=== PATIENT | male | born 1955 | race Two or more races ===

== ENCOUNTER 2019-05-26 11:53 | Inpatient (IN) | payer MEDICAID, OTHER | END 2019-06-06 19:19 | disposition home or self-care (01) | LOC: TELE-WESTW 06-04 17:19 → ER 11:53 → ICU WEST 05-27 20:05 → OVERFLOW 11:54 | PROC: 30233N1 Transfusion of Nonautologous Red Blood Cells into Peripheral Vein, Percutaneous Approach (ICD-10-PCS; principal; ~2019-05-26) | PROC: 30233K1 Transfusion of Nonautologous Frozen Plasma into Peripheral Vein, Percutaneous Approach (ICD-10-PCS; ~2019-05-26) | PROC: 02HV33Z Insertion of Infusion Device into Superior Vena Cava, Percutaneous Approach (ICD-10-PCS; ~2019-05-26) | PROC: 027135Z Dilation of Coronary Artery, Two Arteries with Two Drug-eluting Intraluminal Devices, Percutaneous Approach (ICD-10-PCS; ~2019-05-26) | PROC: B2111ZZ Fluoroscopy of Multiple Coronary Arteries using Low Osmolar Contrast (ICD-10-PCS; ~2019-05-26) | PROC: 4A033BC Measurement of Arterial Pressure, Coronary, Percutaneous Approach (ICD-10-PCS; ~2019-05-26) | DX: A41.9 Sepsis, unspecified organism (principal); I21.4 Non-ST elevation (NSTEMI) myocardial infarction; R65.21 Severe sepsis with septic shock; I50.23 Acute on chronic systolic (congestive) heart failure; D61.818 Other pancytopenia; N18.3 Chronic kidney disease, stage 3 (moderate); K92.2 Gastrointestinal hemorrhage, unspecified; E66.01 Morbid (severe) obesity due to excess calories; L89.90 Pressure ulcer of unspecified site, unspecified stage; I50.33 Acute on chronic diastolic (congestive) heart failure; D64.9 Anemia, unspecified; G40.909 Epilepsy, unspecified, not intractable, without status epilepticus; E66.9 Obesity, unspecified; E78.00 Pure hypercholesterolemia, unspecified; G47.30 Sleep apnea, unspecified; I13.0 Hypertensive heart and chronic kidney disease with heart failure and stage 1 through stage 4 chronic kidney disease, or unspecified chronic kidney disease; I25.10 Atherosclerotic heart disease of native coronary artery without angina pectoris; R09.02 Hypoxemia ==

== ENCOUNTER 2019-07-12 11:36 | Inpatient (IN) | payer MEDICAID | END 2019-07-17 15:27 | disposition home health service (06) | LOC: TELE-CENTR 07-14 12:44 → ER 11:36 → TELE 11:37 | PROC: 30233N1 Transfusion of Nonautologous Red Blood Cells into Peripheral Vein, Percutaneous Approach (ICD-10-PCS; principal; ~2019-07-12) | DX: I21.4 Non-ST elevation (NSTEMI) myocardial infarction (principal); N17.0 Acute kidney failure with tubular necrosis; I50.23 Acute on chronic systolic (congestive) heart failure; D61.818 Other pancytopenia; D64.9 Anemia, unspecified; I11.0 Hypertensive heart disease with heart failure; F03.90 Unspecified dementia, unspecified severity, without behavioral disturbance, psychotic disturbance, mood disturbance, and anxiety; E44.1 Mild protein-calorie malnutrition; G40.909 Epilepsy, unspecified, not intractable, without status epilepticus; L89.90 Pressure ulcer of unspecified site, unspecified stage; I25.10 Atherosclerotic heart disease of native coronary artery without angina pectoris ==

== ENCOUNTER 2019-10-07 12:12 | Emergency (ER) | payer MEDICAID ==
[~2019-10-07] VITALS: Ht 167.6 cm; Wt 100.7 kg
[~2019-10-07 12:12] MED LIST: ALLO100T PO; ATOR20TA50 PO; CLOP75TA28 PO; CYAN500T3 PO; FINA5TAB4 PO; FOLI1TAB6 PO; GABA300C10 PO; LEVE500T22 PO; PANT40T PO; TOPI100T68 PO
[2019-10-07 13:41] LABS: Eosinophils # (auto) 0.1 uL; Monocytes # (auto) 0.7 uL; White Blood Cell 7.6 10^3/uL (4.4-10.8)
[2019-10-07 13:44] LABS: Basophils # (auto) 0.1 uL; Basophils % (auto) 0.8 % (0.0-2.0); Eosinophils % (auto) 1.9 % (0.0-7.0); Hematocrit 43.2 % (41.0-53.0); Hemoglobin 14.5 g/dL (13.5-17.5); Lymphocytes # (auto) 1.9 uL; Lymphocytes % (auto) 25.1 % (10.0-50.0); Mean Corpuscular Hemoglobin 34.3 pg (28.0-32.0); Mean Corpuscular Hgb Conc. 33.6 g/dL (32.0-36.0); Mean Corpuscular Volume 102.3 fL (80.0-100.0); Monocytes % (auto) 9.5 % (0.0-12.0); Neutrophils # (auto) 4.7 uL; Neutrophils % (auto) 62.7 % (37.0-80.0); Platelet Count (auto) 147 10^3/uL (140-450); Red Blood Cells 4.23 10^6/uL (4.5-5.90); Red Cell Distribution Width 14.4 % (11.8-14.3)
[2019-10-07 14:06] LABS: Albumin 3.5 g/dL (3.4-5.0); Calcium 9.2 mg/dL (8.5-10.1); Potassium 4.5 mmol/L (3.5-5.1)
[2019-10-07 14:09] LABS: BUN/Creatinine Ratio 17.6; Bilirubin, Total 0.2 mg/dL (0.2-1.0)
[2019-10-08 01:39] LABS: INR 1.03 (0.9-1.15); Partial Thromboplastin Time 26.9 sec (23.64-32.05)
[2019-10-08 01:40] LABS: Magnesium 2.3 mg/dL (1.6-2.6)
[2019-10-08 02:24] LABS: Urine Bacteria MANY /hpf (None Seen); Urine Blood Negative /uL (Negative); Urine Mucus FEW (None Seen); Urine Specific Gravity 1.018 (1.001-1.035); Urine WBC 37 /hpf (0 - 3)
[2019-10-08 03:09] VITALS: BP 126/59
== END 2019-10-08 03:35 | disposition home or self-care (01) ==
LOC: ER 12:12
DX: M47.896 Other spondylosis, lumbar region (principal); N39.0 Urinary tract infection, site not specified; I50.9 Heart failure, unspecified; K21.9 Gastro-esophageal reflux disease without esophagitis; E78.00 Pure hypercholesterolemia, unspecified; I25.2 Old myocardial infarction; Z88.0 Allergy status to penicillin; Z88.5 Allergy status to narcotic agent; Z79.01 Long term (current) use of anticoagulants; Z79.899 Other long term (current) drug therapy
CPT/HCPCS: 36415; 71045; 72131; 80053; 81001; 83735; 83880; 84443; 84484; 85025; 85610; 85730

== ENCOUNTER 2020-03-21 10:39 | Inpatient (IN) | payer MEDICAID ==
[~2020-03-21] VITALS: Ht 167.6 cm; Wt 78.1 kg
[2020-03-21] MEDS ORDERED: ASPirin 81 mg TAB PO ONE (10:45)
[2020-03-21 11:00] LABS: Basophils # (auto) 0.1 10 ^3/uL (0-0.2); Hemoglobin 13.1 g/dL (13.5-17.5); Lymphocytes # (auto) 1.8 10 ^3/uL (0.4-5.4); Monocytes # (auto) 0.7 10 ^3/uL (0-1.3); Neutrophils # (auto) 6.9 10 ^3/uL (1.6-8.6); Red Cell Distribution Width 13.9 % (11.8-14.3); White Blood Cell 9.6 10^3/uL (4.4-10.8)
[2020-03-21 11:02] LABS: Basophils % (auto) 0.6 % (0.0-2.0); Eosinophils # (auto) 0.2 10 ^3/uL (0-0.8); Eosinophils % (auto) 1.7 % (0.0-7.0); Mean Corpuscular Hemoglobin 34.2 pg (28.0-32.0); Mean Corpuscular Hgb Conc. 33.5 g/dL (32.0-36.0); Mean Corpuscular Volume 102.3 fL (80.0-100.0); Neutrophils % (auto) 71.7 % (37.0-80.0); Platelet Count (auto) 163 10^3/uL (140-450); Red Blood Cells 3.82 10^6/uL (4.5-5.90)
[2020-03-21 11:20] LABS: INR 1.07 (0.9-1.15); Partial Thromboplastin Time 26.2 sec (23.64-32.05)
[2020-03-21 11:21] LABS: Albumin 3.1 g/dL (3.4-5.0); Calcium 8.6 mg/dL (8.5-10.1)
[2020-03-21 11:26] LABS: BUN/Creatinine Ratio 27.5; Bilirubin, Total 0.2 mg/dL (0.2-1.0); Total Protein 7.4 g/dL (6.4-8.2)
[2020-03-21] MEDS ORDERED: METO25TA93 PO ×2 (14:15)
[2020-03-21] MEDS ORDERED: LISI-275 PO ×2 (14:15)
[2020-03-21] MEDS ORDERED: FURO20TA3 PO ×2 (14:15)
[2020-03-21] MEDS ORDERED: FAMO-12 PO ×2 (14:15)
[2020-03-21] MEDS ORDERED: DABI150C5 PO ×2 (14:15)
[2020-03-21] MEDS ORDERED: HYDROcodone-ACET 5/325MG TAB PO PRN (14:45)
[2020-03-21] MEDS ORDERED: ONDANSETRON HCL 4 MG/2 ML VIAL IV PRN (14:45)
[2020-03-21] MEDS ORDERED: ACETAMINOPHEN 500 MG TAB PO PRN (14:45)
[2020-03-21] MEDS ORDERED: MORPHINE SULF INJ 2 MG/ML SYRINGE 1ML IV PRN (14:45)
[2020-03-21] MEDS ORDERED: NITROGLYCERIN 0.4 MG SL TAB SL PRN (14:45)
[2020-03-21 16:00] VITALS: BP 91/48
[2020-03-21] MEDS ORDERED: LORA-622 PO ×2 (17:28)
[2020-03-21] MEDS ORDERED: CHOL20007 OR ×2 (17:28)
[2020-03-21] MEDS ORDERED: ENOXAPARIN SOD 100 MG/1 ML SYRINGE SC ONE (19:00)
[2020-03-21 20:00] VITALS: BP 96/66
[2020-03-21 20:30] LABS: Urine Amorphous Crystal FEW /hpf (None Seen); Urine Bacteria FEW /hpf (None Seen); Urine Blood Negative /uL (Negative); Urine Specific Gravity 1.011 (1.001-1.035); Urine WBC 14 /hpf (0 - 3)
[2020-03-21] MEDS: GABAPENTIN 300 MG CAP PO SCH (21:39)
[2020-03-21] MEDS: levETIRAcetam 500 MG TAB PO SCH (21:39)
[2020-03-21] MEDS: FAMOTIDINE 20 MG TAB PO SCH (21:39)
[2020-03-21] MEDS: ATORVASTATIN 20 MG TAB PO SCH (21:39)
[2020-03-21] MEDS: PANTOPRAZOLE 40 MG TAB PO SCH (21:39)
[2020-03-21] MEDS: TOPIRAMATE 100 MG TAB PO SCH (21:45)
[2020-03-21] MEDS ORDERED: ATORVASTATIN 20 MG TAB PO SCH (22:00)
[2020-03-21 22:06] VITALS: BP 96/66
[2020-03-22 05:00] VITALS: BP 95/55
[2020-03-22] MEDS: GABAPENTIN 300 MG CAP PO SCH ×3 (06:19→22:24)
[2020-03-22] MEDS: ENOXAPARIN SOD 100 MG/1 ML SYRINGE SC SCH ×2 (06:19→13:17)
[2020-03-22 07:30] LABS: INR 0.98 (0.9-1.15); Partial Thromboplastin Time 24.3 sec (23.64-32.05)
[2020-03-22 08:50] VITALS: BP 93/53
[2020-03-22] MEDS: PANTOPRAZOLE 40 MG TAB PO SCH ×2 (09:26→22:22)
[2020-03-22] MEDS: ASPirin-EC 81 mg tab PO SCH (09:26)
[2020-03-22] MEDS: levETIRAcetam 500 MG TAB PO SCH ×2 (09:26→22:23)
[2020-03-22] MEDS: FOLIC ACID 1 MG TAB PO SCH (09:27)
[2020-03-22] MEDS: CLOPIDOGREL BISULFATE 75 MG TAB PO SCH (09:27)
[2020-03-22] MEDS: FINASTERIDE 5 MG TAB PO SCH (09:27)
[2020-03-22] MEDS: TOPIRAMATE 100 MG TAB PO SCH ×2 (09:27→22:22)
[2020-03-22] MEDS: METOPROLOL SUCCINATE XL 50 MG TAB PO SCH (09:27)
[2020-03-22] MEDS ORDERED: FUROSEMIDE 20 MG TAB PO SCH (10:00)
[2020-03-22] MEDS ORDERED: LISINOPRIL 5 MG TAB PO SCH (10:00)
[2020-03-22 11:01] LABS: BUN/Creatinine Ratio 32.5; Calcium 8.6 mg/dL (8.5-10.1); Potassium 4.3 mmol/L (3.5-5.1)
[2020-03-22] MEDS ORDERED: MIDAZOLAM HCL 1MG/1ML-2 ML VIAL ONE (12:01)
[2020-03-22] MEDS ORDERED: ANGIOMAX 250 MG VIAL IV ONE (12:01)
[2020-03-22] MEDS ORDERED: fentaNYL CITRATE 100 MCG/2 ML VL ONE (12:01)
[2020-03-22] MEDS ORDERED: IOHEXOL 350 MG/ML 100ML IJ ONE (12:02)
[2020-03-22] MEDS ORDERED: SODIUM CHL 0.9% 50 ML ONE (12:02)
[2020-03-22] MEDS ORDERED: LIDOCAINE 2%HCL (LOCAL ANESTH.) INJ 20ML MDV ONE (12:02)
[2020-03-22] MEDS ORDERED: diphenhdrAMINE HCL 50 MG/1 ML VL ONE (12:30)
[2020-03-22 16:44] VITALS: BP 104/51
[2020-03-22 22:00] VITALS: BP_SYST 112; BP_SYST 158; BP_DIAS 56; BP_DIAS 87
[2020-03-22] MEDS: ATORVASTATIN 20 MG TAB PO SCH (22:22)
[2020-03-22] MEDS: FAMOTIDINE 20 MG TAB PO SCH (22:22)
[2020-03-23 05:00] VITALS: BP 100/70
[2020-03-23] MEDS: GABAPENTIN 300 MG CAP PO SCH ×2 (06:12→14:00)
[2020-03-23 06:25] LABS: Basophils # (auto) 0 10 ^3/uL (0-0.2); Eosinophils # (auto) 0.1 10 ^3/uL (0-0.8); Eosinophils % (auto) 1.4 % (0.0-7.0)
[2020-03-23 06:28] LABS: Basophils % (auto) 0.3 % (0.0-2.0); Hematocrit 38.8 % (41.0-53.0); Hemoglobin 13.4 g/dL (13.5-17.5); Lymphocytes % (auto) 20.6 % (10.0-50.0); Mean Corpuscular Hemoglobin 35.1 pg (28.0-32.0); Mean Corpuscular Hgb Conc. 34.7 g/dL (32.0-36.0); Mean Corpuscular Volume 101.3 fL (80.0-100.0); Monocytes # (auto) 0.9 10 ^3/uL (0-1.3); Monocytes % (auto) 9.5 % (0.0-12.0); Neutrophils # (auto) 6.6 10 ^3/uL (1.6-8.6); Neutrophils % (auto) 68.2 % (37.0-80.0); Platelet Count (auto) 153 10^3/uL (140-450); Red Blood Cells 3.83 10^6/uL (4.5-5.90); White Blood Cell 9.6 10^3/uL (4.4-10.8)
[2020-03-23 06:49] LABS: Calcium 8.5 mg/dL (8.5-10.1); Magnesium 2.4 mg/dL (1.6-2.6); Potassium 4.3 mmol/L (3.5-5.1)
[2020-03-23 06:54] LABS: BUN/Creatinine Ratio 25.5
[2020-03-23 09:00] VITALS: BP 110/63
[2020-03-23] MEDS: CLOPIDOGREL BISULFATE 75 MG TAB PO SCH (09:34)
[2020-03-23] MEDS: METOPROLOL SUCCINATE XL 50 MG TAB PO SCH (09:34)
[2020-03-23] MEDS: ASPirin-EC 81 mg tab PO SCH (09:34)
[2020-03-23] MEDS: TOPIRAMATE 100 MG TAB PO SCH (09:34)
[2020-03-23] MEDS: PANTOPRAZOLE 40 MG TAB PO SCH (09:35)
[2020-03-23] MEDS: levETIRAcetam 500 MG TAB PO SCH (09:35)
[2020-03-23] MEDS: FINASTERIDE 5 MG TAB PO SCH (09:35)
[2020-03-23] MEDS: FOLIC ACID 1 MG TAB PO SCH (09:35)
[2020-03-23 13:07] VITALS: BP 110/63
== END 2020-03-23 14:35 | disposition home or self-care (01) | DRG 175 ==
LOC: ER 10:39 → TELE 10:40 → TELE-CENTR 15:36
PROVIDERS: ADMIT Nurse Practitioner Acute Care; ATTEND Internal Medicine
PROC: B2111ZZ Fluoroscopy of Multiple Coronary Arteries using Low Osmolar Contrast (ICD-10-PCS; principal; 2020-03-22)
PROC: 027034Z Dilation of Coronary Artery, One Artery with Drug-eluting Intraluminal Device, Percutaneous Approach (ICD-10-PCS; 2020-03-22)
DX: I25.119 Atherosclerotic heart disease of native coronary artery with unspecified angina pectoris (principal); I21.4 Non-ST elevation (NSTEMI) myocardial infarction; I50.43 Acute on chronic combined systolic (congestive) and diastolic (congestive) heart failure; I11.0 Hypertensive heart disease with heart failure; E66.9 Obesity, unspecified; G40.909 Epilepsy, unspecified, not intractable, without status epilepticus; K21.9 Gastro-esophageal reflux disease without esophagitis; E78.5 Hyperlipidemia, unspecified; M10.9 Gout, unspecified; D64.9 Anemia, unspecified; E44.1 Mild protein-calorie malnutrition; Z95.5 Presence of coronary angioplasty implant and graft; Z86.73 Personal history of transient ischemic attack (TIA), and cerebral infarction without residual deficits; Z68.38 Body mass index [BMI] 38.0-38.9, adult; Z88.5 Allergy status to narcotic agent; Z88.0 Allergy status to penicillin; Z79.899 Other long term (current) drug therapy; Z81.8 Family history of other mental and behavioral disorders
CPT/HCPCS: 36415; 71045; 80048; 80053; 80061; 81001; 83735; 83880; 84443; 84484; 85025; 85610; 85730; 86141; 87086; 87088; 87186; 92928; 93005; 93306; 93454; 99152; 99153; C1874; C1887; G0378; J2250

== ENCOUNTER 2020-03-28 12:54 | Emergency (ER) | payer MEDICAID ==
[~2020-03-28] VITALS: Ht 167.6 cm; Wt 108.0 kg
[~2020-03-28 12:54] MED LIST changes: +CHOL20007 OR; +DABI150C5 PO; +FAMO-12 PO; +FURO20TA3 PO; +LISI-275 PO; +LORA-622 PO; +METO25TA93 PO
[2020-03-28 13:21] VITALS: BP 101/39
== END 2020-03-28 15:55 | disposition home or self-care (01) ==
LOC: ER 12:54
DX: Z48.01 Encounter for change or removal of surgical wound dressing (principal); I11.0 Hypertensive heart disease with heart failure; I50.9 Heart failure, unspecified; I25.10 Atherosclerotic heart disease of native coronary artery without angina pectoris; I25.2 Old myocardial infarction; K21.9 Gastro-esophageal reflux disease without esophagitis; E78.5 Hyperlipidemia, unspecified; Z79.01 Long term (current) use of anticoagulants; Z79.899 Other long term (current) drug therapy; Z88.0 Allergy status to penicillin; Z88.5 Allergy status to narcotic agent

== ENCOUNTER 2020-06-10 09:06 | Emergency (ER) | payer MEDICAID ==
[~2020-06-10] VITALS: Ht 167.6 cm; Wt 106.6 kg
[~2020-06-10 09:06] MED LIST changes: -LEVE500T22 PO; +LEVE500T32 PO
[2020-06-10 09:43] LABS: Urine Bacteria FEW /hpf (None Seen); Urine Blood 3+ /uL (Negative); Urine Budding Yeast MODERATE /hpf (None Seen); Urine Specific Gravity 1.021 (1.001-1.035); Urine WBC 9 /hpf (0 - 3)
[2020-06-10 10:39] LABS: Basophils # (auto) 0.1 10 ^3/uL (0-0.2); Basophils % (auto) 0.8 % (0.0-2.0); Eosinophils # (auto) 0 10 ^3/uL (0-0.8); Eosinophils % (auto) 0.1 % (0.0-7.0); Hematocrit 38.6 % (41.0-53.0); Hemoglobin 12.8 g/dL (13.5-17.5); Lymphocytes # (auto) 1.3 10 ^3/uL (0.4-5.4); Lymphocytes % (auto) 9.3 % (10.0-50.0); Mean Corpuscular Hemoglobin 33.7 pg (28.0-32.0); Mean Corpuscular Hgb Conc. 33.2 g/dL (32.0-36.0); Mean Corpuscular Volume 101.4 fL (80.0-100.0); Monocytes # (auto) 0.9 10 ^3/uL (0-1.3); Monocytes % (auto) 6.3 % (0.0-12.0); Neutrophils # (auto) 11.4 10 ^3/uL (1.6-8.6); Neutrophils % (auto) 83.5 % (37.0-80.0); Platelet Count (auto) 175 10^3/uL (140-450); Red Blood Cells 3.81 10^6/uL (4.5-5.90); Red Cell Distribution Width 14.1 % (11.8-14.3); White Blood Cell 13.6 10^3/uL (4.4-10.8)
[2020-06-10 11:05] LABS: Potassium 4.1 mmol/L (3.5-5.1)
[2020-06-10 11:15] LABS: Albumin 3.3 g/dL (3.4-5.0); BUN/Creatinine Ratio 22.5; Calcium 8.5 mg/dL (8.5-10.1); Total Protein 7.5 g/dL (6.4-8.2)
[2020-06-10 11:57] LABS: Bilirubin, Total 0.3 mg/dL (0.2-1.0)
[2020-06-10 14:46] VITALS: BP 117/60
== END 2020-06-10 14:50 | disposition home or self-care (01) ==
LOC: ER 09:06
DX: N39.0 Urinary tract infection, site not specified (principal); E44.1 Mild protein-calorie malnutrition; D72.829 Elevated white blood cell count, unspecified; I11.0 Hypertensive heart disease with heart failure; I50.9 Heart failure, unspecified; K21.9 Gastro-esophageal reflux disease without esophagitis; E78.5 Hyperlipidemia, unspecified; Z98.61 Coronary angioplasty status; Z68.37 Body mass index [BMI] 37.0-37.9, adult
CPT/HCPCS: 36415; 71045; 80053; 81001; 85025

== ENCOUNTER 2020-06-12 06:47 | Inpatient (IN) | payer MEDICAID ==
[~2020-06-12] VITALS: Ht 172.7 cm; Wt 111.4 kg
[2020-06-12] MEDS ORDERED: SODIUM CHLORIDE 0.9% 1,000 ML IV ONE ×2 (07:02)
[2020-06-12] MEDS ORDERED: levoFLOXacin 500MG 100 ML IV ONE (07:15)
[2020-06-12] MEDS ORDERED: ACETAMINOPHEN 500 MG TAB PO ONE ×2 (07:27→07:45)
[2020-06-12 07:43] LABS: Basophils # (auto) 0.1 10 ^3/uL (0-0.2); Eosinophils # (auto) 0 10 ^3/uL (0-0.8); Monocytes # (auto) 1.2 10 ^3/uL (0-1.3)
[2020-06-12 07:44] LABS: Basophils % (auto) 0.7 % (0.0-2.0); Hematocrit 36.7 % (41.0-53.0); Lymphocytes # (auto) 1.1 10 ^3/uL (0.4-5.4); Mean Corpuscular Hemoglobin 33.3 pg (28.0-32.0); Mean Corpuscular Hgb Conc. 32.6 g/dL (32.0-36.0); Mean Corpuscular Volume 102.1 fL (80.0-100.0); Monocytes % (auto) 8.2 % (0.0-12.0); Neutrophils # (auto) 12.6 10 ^3/uL (1.6-8.6); Neutrophils % (auto) 84.1 % (37.0-80.0); Platelet Count (auto) 143 10^3/uL (140-450); Red Blood Cells 3.59 10^6/uL (4.5-5.90)
[2020-06-12 08:04] LABS: Albumin 2.8 g/dL (3.4-5.0); Calcium 8.5 mg/dL (8.5-10.1); Potassium 3.3 mmol/L (3.5-5.1)
[2020-06-12 08:12] LABS: Bilirubin, Total 0.6 mg/dL (0.2-1.0); CRP High Sensitivity 14.8 mg/dL (< 0.3); INR 1.33 (0.9-1.15); Total Protein 7.2 g/dL (6.4-8.2)
[2020-06-12] MEDS: NOREPINEPHRINE 8 MG/250ML KIT 250 ML IV SCH (08:30)
[2020-06-12] MEDS ORDERED: POTASSIUM EFFERVESENT TAB 25 MEQ PO ONE ×2 (09:30→14:15)
[2020-06-12 09:35] LABS: Urine Amorphous Crystal FEW /hpf (None Seen); Urine Bacteria MANY /hpf (None Seen); Urine Blood 3+ /uL (Negative); Urine Mucus FEW (None Seen); Urine Specific Gravity 1.024 (1.001-1.035); Urine WBC 81 /hpf (0 - 3); Urine WBC Clumps PRESENT /hpf (None Seen)
[2020-06-12] MEDS ORDERED: ASPirin 81 mg TAB PO ONE (10:00)
[2020-06-12] MEDS ORDERED: ENOXAPARIN SOD 100 MG/1 ML SYRINGE SC ONE (10:00)
[2020-06-12] MEDS ORDERED: cefTRIAXone 1GM/50ML D5W 50 ML IV ONE (10:15)
[2020-06-12] MEDS ORDERED: DOPamine 1600MCG/ML D5W 250 ML IV ONE ×2 (12:09→12:15)
[2020-06-12] MEDS ORDERED: ATROPINE SULFATE 0.4 MG/1 ML VIAL ONE (12:09)
[2020-06-12] MEDS ORDERED: ATROPINE SULF 1 MG/10ml SYR IV ONE (12:15)
[2020-06-12] MEDS ORDERED: SODIUM CHLORIDE 0.9% 3,400 ML IV ONE (12:30)
[2020-06-12 13:41] LABS: BUN/Creatinine Ratio 13.4; Calcium 7.4 mg/dL (8.5-10.1); Potassium 3.3 mmol/L (3.5-5.1)
[2020-06-12] MEDS ORDERED: POTASSIUM EFFERVESENT TAB 25 MEQ ONE (14:04)
[2020-06-12] MEDS ORDERED: [UNRECOGNIZED DRUG - OTHER] IV SCH ×2 (14:45)
[2020-06-12] MEDS ORDERED: SODIUM BICARBONATE IV SCH ×2 (14:45)
[2020-06-12] MEDS ORDERED: SODIUM BICARBONATE 50ML VIAL 50 ML in SOD CHL 0.45% 1,000 ML IV SCH (14:45)
[2020-06-12] MEDS ORDERED: MORPHINE SULF INJ 2 MG/ML SYRINGE 1ML IV PRN (15:15)
[2020-06-12] MEDS: SODIUM BICARBONATE 50ML VIAL 100 ML in SOD CHL 0.45% 1,000 ML IV SCH ×2 (15:15→22:39)
[2020-06-12] MEDS ORDERED: NITROGLYCERIN 0.4 MG SL TAB SL PRN (15:15)
[2020-06-12] MEDS ORDERED: ACETAMINOPHEN 325 MG TAB PO PRN ×2 (18:15→19:15)
[2020-06-12] MEDS ORDERED: VANCOMYCIN PER PHARMACY 1,000 MG IV SCH (19:15)
[2020-06-12] MEDS ORDERED: MORPHINE SULFATE 4 MG/ML SYR/VIAL IV PRN (19:15)
[2020-06-12] MEDS ORDERED: LORazepam 2MG/ML-1ML VIAL IV PRN (19:15)
[2020-06-12] MEDS ORDERED: VANCOMYCIN 1GM/250ML 250 ML IV ONE (19:30)
[2020-06-12] MEDS: SODIUM CHLORIDE 0.9% 1,000 ML IV SCH (19:53)
[2020-06-12 19:54] LABS: Calcium 7.6 mg/dL (8.5-10.1); Potassium 3.6 mmol/L (3.5-5.1)
[2020-06-12 20:00] LABS: BUN/Creatinine Ratio 16.5
[2020-06-12] MEDS ORDERED: SODIUM BICARBONATE 8.4% INJ 50ML SYRINGE ONE (21:16)
[2020-06-12] MEDS: ATORVASTATIN 20 MG TAB PO SCH (21:36)
[2020-06-12] MEDS: levETIRAcetam 500 MG TAB PO SCH (21:36)
[2020-06-12] MEDS: TOPIRAMATE 100 MG TAB PO SCH (21:37)
[2020-06-12] MEDS: GABAPENTIN 300 MG CAP PO SCH (21:37)
[2020-06-12] MEDS ORDERED: FAMOTIDINE (10MG/ML) 2ML VL IV SCH (22:00)
[2020-06-12] MEDS ORDERED: ATORVASTATIN 20 MG TAB PO SCH (22:00)
[2020-06-13] MEDS: HYDROCORTISONE SOD SUCC 100 MG/2ML INJ VIAL IV SCH ×4 (00:13→18:00)
[2020-06-13] MEDS: NOREPINEPHRINE 8 MG/250ML KIT 250 ML IV SCH ×2 (01:52→18:39)
[2020-06-13] MEDS ORDERED: SODIUM BICARBONATE 8.4% INJ 50ML SYRINGE ONE (05:20)
[2020-06-13] MEDS: FUROSEMIDE 20 MG/2 ML VIAL IV SCH ×2 (06:15→18:00)
[2020-06-13] MEDS: SODIUM BICARBONATE 50ML VIAL 100 ML in SOD CHL 0.45% 1,000 ML IV SCH ×2 (06:15→12:26)
[2020-06-13] MEDS: GABAPENTIN 300 MG CAP PO SCH ×3 (06:16→22:52)
[2020-06-13] MEDS: SODIUM CHLORIDE 0.9% 1,000 ML IV SCH ×2 (08:53→22:53)
[2020-06-13 08:59] LABS: Basophils # (auto) 0 10 ^3/uL (0-0.2); Eosinophils # (auto) 0 10 ^3/uL (0-0.8); Eosinophils % (auto) 0.1 % (0.0-7.0); Hematocrit 34.4 % (41.0-53.0); Hemoglobin 11.4 g/dL (13.5-17.5); Lymphocytes # (auto) 0.5 10 ^3/uL (0.4-5.4); Lymphocytes % (auto) 4.3 % (10.0-50.0); Mean Corpuscular Hemoglobin 33.8 pg (28.0-32.0); Mean Corpuscular Hgb Conc. 33.3 g/dL (32.0-36.0); Mean Corpuscular Volume 101.5 fL (80.0-100.0); Monocytes # (auto) 0.3 10 ^3/uL (0-1.3); Monocytes % (auto) 2.8 % (0.0-12.0); Neutrophils # (auto) 10.6 10 ^3/uL (1.6-8.6); Neutrophils % (auto) 92.8 % (37.0-80.0); Platelet Count (auto) 143 10^3/uL (140-450); Red Blood Cells 3.39 10^6/uL (4.5-5.90); Red Cell Distribution Width 14.1 % (11.8-14.3); White Blood Cell 11.5 10^3/uL (4.4-10.8)
[2020-06-13 09:13] LABS: BUN/Creatinine Ratio 19.9; Calcium 8.1 mg/dL (8.5-10.1); Potassium 3.6 mmol/L (3.5-5.1)
[2020-06-13] MEDS: METOPROLOL SUCCINATE XL 50 MG TAB PO SCH (09:25)
[2020-06-13] MEDS: ASPirin 81 mg TAB PO SCH (09:32)
[2020-06-13] MEDS: FAMOTIDINE 20 MG TAB PO SCH (09:32)
[2020-06-13] MEDS: POTASSIUM CHL 20 Meq TABLET PO SCH (09:32)
[2020-06-13] MEDS: levETIRAcetam 500 MG TAB PO SCH ×2 (09:32→22:52)
[2020-06-13] MEDS: ALLOPURINOL 100 MG TAB PO SCH (09:32)
[2020-06-13] MEDS: CLOPIDOGREL BISULFATE 75 MG TAB PO SCH (09:33)
[2020-06-13] MEDS: TOPIRAMATE 100 MG TAB PO SCH ×2 (09:33→22:52)
[2020-06-13] MEDS ORDERED: MEROPENEM 500MG IVPB 50 ML IV SCH (10:00)
[2020-06-13] MEDS ORDERED: ENOXAPARIN SOD 40 MG/0.4 ML SYRINGE SC SCH (10:00)
[2020-06-13] MEDS: VANCOMYCIN 1GM/250ML 250 ML IV SCH (14:00)
[2020-06-13 16:04] LABS: Urine Bacteria FEW /hpf (None Seen); Urine Blood 3+ /uL (Negative); Urine Hyaline Cast FEW /lpf (0 - 2); Urine Mucus FEW (None Seen); Urine Specific Gravity 1.015 (1.001-1.035); Urine WBC 20 /hpf (0 - 3)
[2020-06-13] MEDS: ATORVASTATIN 20 MG TAB PO SCH (22:51)
[2020-06-14] MEDS: SODIUM BICARBONATE 50ML VIAL 100 ML in SOD CHL 0.45% 1,000 ML IV SCH ×3 (00:47→11:11)
[2020-06-14] MEDS: GABAPENTIN 300 MG CAP PO SCH ×3 (06:12→21:57)
[2020-06-14 06:51] LABS: Basophils # (auto) 0 10 ^3/uL (0-0.2); Eosinophils # (auto) 0.1 10 ^3/uL (0-0.8); Eosinophils % (auto) 0.6 % (0.0-7.0); Hemoglobin 10.8 g/dL (13.5-17.5); Neutrophils # (auto) 7.8 10 ^3/uL (1.6-8.6); White Blood Cell 10.1 10^3/uL (4.4-10.8)
[2020-06-14 06:54] LABS: Basophils % (auto) 0.1 % (0.0-2.0); Hematocrit 31.3 % (41.0-53.0); Lymphocytes # (auto) 1.4 10 ^3/uL (0.4-5.4); Lymphocytes % (auto) 14.3 % (10.0-50.0); Mean Corpuscular Hemoglobin 34.7 pg (28.0-32.0); Mean Corpuscular Hgb Conc. 34.5 g/dL (32.0-36.0); Mean Corpuscular Volume 100.5 fL (80.0-100.0); Monocytes # (auto) 0.8 10 ^3/uL (0-1.3); Monocytes % (auto) 7.4 % (0.0-12.0); Neutrophils % (auto) 77.6 % (37.0-80.0); Platelet Count (auto) 130 10^3/uL (140-450); Red Blood Cells 3.12 10^6/uL (4.5-5.90); Red Cell Distribution Width 13.3 % (11.8-14.3)
[2020-06-14 07:20] LABS: Calcium 7.8 mg/dL (8.5-10.1)
[2020-06-14 07:40] LABS: Potassium 2.9 mmol/L (3.5-5.1)
[2020-06-14] MEDS ORDERED: POTASSIUM CHL 20 Meq TABLET PO ONE (08:15)
[2020-06-14] MEDS: VANCOMYCIN 1GM/250ML 250 ML IV SCH ×2 (08:22→21:51)
[2020-06-14] MEDS: MEROPENEM 1GM IVPB 100 ML IV SCH ×2 (10:00→18:28)
[2020-06-14] MEDS: levETIRAcetam 500 MG TAB PO SCH ×2 (10:00→21:57)
[2020-06-14] MEDS: TOPIRAMATE 100 MG TAB PO SCH ×2 (10:00→22:00)
[2020-06-14] MEDS: ASPirin 81 mg TAB PO SCH (10:00)
[2020-06-14] MEDS: FUROSEMIDE 20 MG/2 ML VIAL IV SCH (10:00)
[2020-06-14] MEDS: FAMOTIDINE 20 MG TAB PO SCH ×2 (10:00→22:00)
[2020-06-14] MEDS: CLOPIDOGREL BISULFATE 75 MG TAB PO SCH (10:00)
[2020-06-14] MEDS: ALLOPURINOL 100 MG TAB PO SCH (10:00)
[2020-06-14] MEDS: FINASTERIDE 5 MG TAB PO SCH (10:00)
[2020-06-14] MEDS: METOPROLOL SUCCINATE XL 50 MG TAB PO SCH (10:00)
[2020-06-14] MEDS: POTASSIUM CHL 20 Meq TABLET PO SCH (10:00)
[2020-06-14] MEDS ORDERED: POTASSIUM CHLORIDE 20 MEQ, LIDOCAINE 1% (LOCAL ANESTH.) 2 ML in SODIUM CHL 0.9% 100 ML IV ONE (10:30)
[2020-06-14] MEDS: NOREPINEPHRINE 8 MG/250ML KIT 250 ML IV SCH (11:19)
[2020-06-14] MEDS: SODIUM CHLORIDE 0.9% 1,000 ML IV SCH (11:32)
[2020-06-14] MEDS: SOD CHL 0.45% 1,000 ML IV SCH (11:41)
[2020-06-14] MEDS ORDERED: PIPERACILLIN-TAZOB 3.375GM 100 ML IV SCH (12:00)
[2020-06-14] MEDS: TAMSULOSIN HYDROCHLORIDE 0.4 MG CAP PO SCH (18:28)
[2020-06-14] MEDS: ATORVASTATIN 20 MG TAB PO SCH (21:57)
[2020-06-15 01:08] LABS: Calcium 7.6 mg/dL (8.5-10.1); Potassium 3.9 mmol/L (3.5-5.1)
[2020-06-15 01:10] LABS: BUN/Creatinine Ratio 25.2
[2020-06-15] MEDS: SODIUM CHLORIDE 0.9% 1,000 ML IV SCH ×2 (01:31→14:10)
[2020-06-15] MEDS: MEROPENEM 1GM IVPB 100 ML IV SCH ×3 (01:31→18:00)
[2020-06-15] MEDS: NOREPINEPHRINE 8 MG/250ML KIT 250 ML IV SCH (03:59)
[2020-06-15 05:00] VITALS: BP 110/63
[2020-06-15 05:31] LABS: Basophils # (auto) 0 10 ^3/uL (0-0.2); Eosinophils # (auto) 0.2 10 ^3/uL (0-0.8); Lymphocytes % (auto) 23.6 % (10.0-50.0); Neutrophils # (auto) 4.8 10 ^3/uL (1.6-8.6)
[2020-06-15 05:34] LABS: Basophils % (auto) 0.4 % (0.0-2.0); Eosinophils % (auto) 2.5 % (0.0-7.0); Hematocrit 29.2 % (41.0-53.0); Lymphocytes # (auto) 1.7 10 ^3/uL (0.4-5.4); Mean Corpuscular Hgb Conc. 34.4 g/dL (32.0-36.0); Mean Corpuscular Volume 101.7 fL (80.0-100.0); Monocytes # (auto) 0.6 10 ^3/uL (0-1.3); Monocytes % (auto) 8.6 % (0.0-12.0); Neutrophils % (auto) 64.9 % (37.0-80.0); Platelet Count (auto) 123 10^3/uL (140-450); Red Blood Cells 2.87 10^6/uL (4.5-5.90); Red Cell Distribution Width 14.1 % (11.8-14.3); White Blood Cell 7.4 10^3/uL (4.4-10.8)
[2020-06-15 05:52] LABS: Calcium 7.4 mg/dL (8.5-10.1); Potassium 3.9 mmol/L (3.5-5.1)
[2020-06-15 05:54] LABS: BUN/Creatinine Ratio 26.3
[2020-06-15] MEDS: GABAPENTIN 300 MG CAP PO SCH ×3 (06:27→22:21)
--- NOTE | 2020-06-15 06:32 | NUR ---
Respiratory note: POX CHECK, HR 70, RR 16, SPO2 95% ON ROOM AIR. NO RESP DISTRESS NOTED.
[2020-06-15] MEDS: SOD CHL 0.45% 1,000 ML IV SCH (07:30)
--- NOTE | 2020-06-15 07:35 | NUR ---
OPENING NOTE ASSUMED CARE OF PT. ALERT AND AWAKE. NO S/S OF SOB/DISTRESS NOTED. BED SET TO LOWEST POSITION/LOCKED. BEDSIDE RAILS UP X2. CALL LIGHT WITHIN REACH. INSTRUCTED PT TO CALL FOR ASSISTANCE. UPDATED ON POC. WILL CONTINUE TO MONITOR Q1HR AND PRN.
[2020-06-15 08:00] VITALS: BP 96/41
[2020-06-15] MEDS: VANCOMYCIN 1GM/250ML 250 ML IV SCH (09:55)
[2020-06-15] MEDS: FUROSEMIDE 20 MG/2 ML VIAL IV SCH (09:56)
[2020-06-15] MEDS: POTASSIUM CHL 20 Meq TABLET PO SCH (09:57)
[2020-06-15] MEDS: ASPirin 81 mg TAB PO SCH (09:57)
[2020-06-15] MEDS: FAMOTIDINE 20 MG TAB PO SCH ×2 (09:57→22:22)
[2020-06-15] MEDS: FINASTERIDE 5 MG TAB PO SCH (09:58)
[2020-06-15] MEDS: TOPIRAMATE 100 MG TAB PO SCH ×2 (09:58→22:23)
[2020-06-15] MEDS: CLOPIDOGREL BISULFATE 75 MG TAB PO SCH (09:58)
[2020-06-15] MEDS: METOPROLOL SUCCINATE XL 50 MG TAB PO SCH (09:59)
[2020-06-15] MEDS: ALLOPURINOL 100 MG TAB PO SCH (09:59)
[2020-06-15] MEDS: levETIRAcetam 500 MG TAB PO SCH ×2 (10:01→22:21)
[2020-06-15 13:06] VITALS: BP 96/35
--- NOTE | 2020-06-15 16:45 | NUR ---
MD SPOKE WITH DR. ELIZABETH INFORMED HIM PATIENT IS VOIDING AFTER DISCONTINUATION OF [place] CATH. PER MD NO NEED TO DO BLADDER SCAN.
--- NOTE | 2020-06-15 17:03 | NUR ---
COVID RESULTS COVID RESULTS NEGATIVE, RESULTS CONFIRMED BY SUMI.
--- NOTE | 2020-06-15 17:34 | NUR ---
CARE ENDORSED TO DEE COMBS. NO S/S OF SOB/DISTRESS NOTED.
--- NOTE | 2020-06-15 17:45 | NUR ---
TRANSFER PATIENT TRANSFERRED TO ROOM 273A. PATIENT A/O X4. NO S/S OF DISTRESS, SOB, NO C/O PAIN. BED IN LOWEST/LOCKED POSITION, BED RAILS UP X2, CALL LIGHT WITHIN REACH.
[2020-06-15] MEDS: TAMSULOSIN HYDROCHLORIDE 0.4 MG CAP PO SCH (18:01)
--- NOTE | 2020-06-15 19:02 | NUR ---
Midline Placement: Patient educated on need for midline placement. All risks and benefits explained and all questions and concerns addresses prior to procedure. 18g/10cm midline inserted via LEFT BRACHIAL vein using Ultrasound. Sterile technique utilized. Blood return obtained from THE lumen and flushed easily with NS using proper technique. Midline secured with saline lock; biodisc and occlusive dressing applied. Primary RN notified. Midline lot # [id number].
--- NOTE | 2020-06-15 19:25 | NUR ---
Opening Shift Note Patient is AOx3. Patient is easily confused about his situation. Patient on bed persaud but insists he doesn't remember being put on bed persaud. Patient has no s/s of distress or SOB. Patient bed alarm on, bed locked in lowest position, and HOB at 30 degrees. No complaints of pain. Will continue to monitor.
--- NOTE | 2020-06-15 21:27 | NUR ---
Lab called to stop and not admin Vancomycin due to high troph levels.
[2020-06-15 22:00] VITALS: BP 97/54
[2020-06-15] MEDS: ATORVASTATIN 20 MG TAB PO SCH (22:21)
[2020-06-16] MEDS: MEROPENEM 1GM IVPB 100 ML IV SCH ×2 (01:49→11:18)
[2020-06-16] MEDS: SOD CHL 0.45% 1,000 ML IV SCH (04:00)
[2020-06-16 05:00] VITALS: BP 99/58
[2020-06-16] MEDS: GABAPENTIN 300 MG CAP PO SCH ×2 (05:51→14:53)
--- NOTE | 2020-06-16 07:30 | NUR ---
Opening Shift Note Assumed care of patient, awake and alert. No S/S of distress/SOB or pain. Instructed on POC and to call for assist PRN, will continue to monitor for changes Q1hr and PRN. Bed is locked and in lowest position. Call light within reach.
[2020-06-16 08:00] VITALS: BP 95/52
[2020-06-16 09:39] LABS: BUN/Creatinine Ratio 21.5; Calcium 8.1 mg/dL (8.5-10.1); Potassium 4.5 mmol/L (3.5-5.1)
[2020-06-16] MEDS: FAMOTIDINE 20 MG TAB PO SCH (09:52)
[2020-06-16] MEDS: ASPirin 81 mg TAB PO SCH (09:52)
[2020-06-16] MEDS: CLOPIDOGREL BISULFATE 75 MG TAB PO SCH (09:53)
[2020-06-16] MEDS: FINASTERIDE 5 MG TAB PO SCH (09:53)
[2020-06-16] MEDS: levETIRAcetam 500 MG TAB PO SCH (09:53)
[2020-06-16] MEDS: ALLOPURINOL 100 MG TAB PO SCH (09:53)
[2020-06-16] MEDS: FUROSEMIDE 20 MG/2 ML VIAL IV SCH (09:54)
[2020-06-16] MEDS: METOPROLOL SUCCINATE XL 50 MG TAB PO SCH (09:54)
[2020-06-16] MEDS: POTASSIUM CHL 20 Meq TABLET PO SCH (10:06)
[2020-06-16] MEDS: TOPIRAMATE 100 MG TAB PO SCH (10:06)
[2020-06-16 12:00] VITALS: BP 97/51
[2020-06-16] MEDS ORDERED: VANCOMYCIN 1GM/250ML 250 ML IV SCH ×2 (12:00→15:00)
--- NOTE | 2020-06-16 12:42 | NUR ---
Est energy needs 0169-7922 kcal (14-18 kcal/kg BW 111.4kg) Est protein needs 70-91g (1-1.3g/kg IBW 70kg) Will reassess prn. Addendum: 06/16/20 at [address] Amended: Links added.
--- NOTE | 2020-06-16 12:43 | NUR ---
I faxed home IV ATB order to [facility] along with flush orders, midline report, clinical information.
--- NOTE | 2020-06-16 14:00 | NUR ---
PHONE CALL RECEIVED FROM DALE BROOKS REGARDING PATIENT HOME HEALTH IV ANTIBIOTICS. HOME HEALTH [facility] REQUESTING INVANZ 1GM FIRST ORDER TO BE DONE BEFORE DISCHARGE. PAGED FOR DR. ELIZABETH FOR INVANZ 1GM IV ORDER FOR ONE TIME DOSE BEFORE DISCHARGE. DR. ZAYAS ORDERS WILL BE CARRIED OUT.
--- NOTE | 2020-06-16 14:28 | NUR ---
I spoke with Katherine at [facility], she is requesting that patient have first dose IV Invanz here before being discharged. She will arrange delivery between 7-10pm this evening-she has already spoken with family. I will fax her updated medication sheet once IV Invanz is given. I spoke with patient's primary nurse and made her aware that patient needs to have first dose of Invanz here prior to discharge, and that Dr. Singh needs to place actual discharge home order-none placed as stated in his communication order.
[2020-06-16] MEDS ORDERED: ERTAPENEM SOD INJ 1 GM in SODIUM CHL 0.9% 50 ML IV ONE (15:15)
[2020-06-16] MEDS ORDERED: METO-6 PO (15:16)
[2020-06-16] MEDS ORDERED: ASPI81CH43 PO (15:16)
--- NOTE | 2020-06-16 16:44 | NUR ---
I spoke with nurse Elizabeth, IV Invanz has been given. I spoke with Katherine at [facility] to let her know-she said they will deliver to patient's home between 7-10pm this evening (I made nurse aware). I faxed updated medication sheet to [facility] showing that IV Invanz had been given. Per health social work professor Bhargavi Ochoa [facility] to visit patient.
[2020-06-16 16:56] VITALS: BP 107/56
--- NOTE | 2020-06-16 17:04 | NUR ---
Assessment Patient is a 65-year-old male who is alert and oriented. Prior to admission patient lived home with his Olya and functioned assistance. Per patient he has a walker with seat and home oxygen. Per patient his helps him with his ADL's. Per patient he will return home to his prior living arrangements post discharge and his will transport him home. Advised patient there is a social service consult for home health nurse and IV abx for 13 days. Per patient his Olya is teachable and can assist with the Rikki abx. Informed patient clinical information will be faxed to a contracted home health agency. Informed patient he has the right to participate in all discharge planning. Patient verbalized understanding and agreed to discharge plan. Faxed clinical information to [facility] and [facility]. [facility] was unable to accept patient at this time. Virgilio Smith with [facility] has accepted patient and will be seen within 24-48hrs upon d/c day. DALE Jain will completed the IV abx. Obtain authorization from [facility] [id number]. Addendum: 06/16/20 at 1711 by KAMAR DOTSON Amended: Links added.
[2020-06-16 17:46] VITALS: BP 95/52
--- NOTE | 2020-06-16 18:42 | NUR ---
DISCHARGED PATIENT RIGHT IJ TRIPLE LUMEN AND LEFT HAND 20G IV REMOVED. IV CATHETERS INTACT WITH NO SIGNS OF INFECTION. APPLIED PRESSURE, 4X4 GAUZE AND TAPE. NO SIGNS OF MAJOR BLEEDING. PATIENT TOLERATED IV REMOVAL WELL WITH NO SIGNS OF DISTRESS. PATIENT LEFT UPPER MIDLINE LEFT IN PLACE FOR HOME HEALTH IV ANTIBIOTICS. PATIENT DISCHARGED VIA WHEELCHAIR. PATIENT TOLERATED TRANSFER TO WHEELCHAIR WITH NO SIGNS OF DISTRESS. TELEMONITOR NUMBER [id number] SENT TO TELE ROOM.
== END 2020-06-16 18:43 | disposition home health service (06) | DRG 720 ==
LOC: EDBD 06:47 → ER 06:47 → TELE 06:48 → TELE-EAST 06-15 01:00 → TELE-WESTW 06-15 17:34
PROVIDERS: ADMIT Hospitalist; ATTEND Internal Medicine
PROC: 02HV33Z Insertion of Infusion Device into Superior Vena Cava, Percutaneous Approach (ICD-10-PCS; principal; 2020-06-12)
DX: A41.9 Sepsis, unspecified organism (principal); R65.21 Severe sepsis with septic shock; I48.91 Unspecified atrial fibrillation; K21.9 Gastro-esophageal reflux disease without esophagitis; I13.0 Hypertensive heart and chronic kidney disease with heart failure and stage 1 through stage 4 chronic kidney disease, or unspecified chronic kidney disease; E43 Unspecified severe protein-calorie malnutrition; N40.0 Benign prostatic hyperplasia without lower urinary tract symptoms; N18.9 Chronic kidney disease, unspecified; N17.0 Acute kidney failure with tubular necrosis; G40.909 Epilepsy, unspecified, not intractable, without status epilepticus; I25.10 Atherosclerotic heart disease of native coronary artery without angina pectoris; E66.01 Morbid (severe) obesity due to excess calories; E87.6 Hypokalemia; E78.5 Hyperlipidemia, unspecified; E11.22 Type 2 diabetes mellitus with diabetic chronic kidney disease; M10.9 Gout, unspecified; R29.6 Repeated falls; D68.4 Acquired coagulation factor deficiency; Z20.828 Contact with and (suspected) exposure to other viral communicable diseases; Z79.02 Long term (current) use of antithrombotics/antiplatelets; Z79.899 Other long term (current) drug therapy; Z81.8 Family history of other mental and behavioral disorders; Z86.73 Personal history of transient ischemic attack (TIA), and cerebral infarction without residual deficits; Z95.5 Presence of coronary angioplasty implant and graft; I50.9 Heart failure, unspecified; Z88.0 Allergy status to penicillin; Z88.5 Allergy status to narcotic agent; N39.0 Urinary tract infection, site not specified; D64.9 Anemia, unspecified; I21.4 Non-ST elevation (NSTEMI) myocardial infarction; Z68.37 Body mass index [BMI] 37.0-37.9, adult
CPT/HCPCS: 36415; 36556; 70450; 71045; 76775; 80048; 80053; 80202; 81001; 82550; 82565; 82570; 82728; 83036; 83605; 83615; 83880; 84100; 84146; 84156; 84484; 85025; 85379; 85610; 85730; 86141; 86850; 86900; 86901; 87040; 87077; 87086; 87186; 87426; 87493; 93005; 93970; 94762; 97110; 97163; 97530; 99291; G0378; J0461; J0696; J1335; J1956; J2001; J2185

== ENCOUNTER → 2020-06-24 | Outpatient (CLI) | payer MEDICAID ==
[~2020-06-24] MED LIST changes: +ASPI81CH43 PO; -DABI150C5 PO; -LISI-275 PO; +METO-6 PO; -METO25TA93 PO
[2020-06-24 12:39] LABS: Urine Bacteria NONE SEEN /hpf (None Seen); Urine Blood Negative /uL (Negative); Urine Specific Gravity 1.008 (1.001-1.035); Urine WBC <1 /hpf (0 - 3)
[2020-06-24 12:40] LABS: Basophils # (auto) 0 10 ^3/uL (0-0.2); Basophils % (auto) 0.6 % (0.0-2.0); Red Blood Cells 3.26 10^6/uL (4.5-5.90)
[2020-06-24 12:42] LABS: Eosinophils # (auto) 0 10 ^3/uL (0-0.8); Eosinophils % (auto) 0.6 % (0.0-7.0); Hematocrit 33.2 % (41.0-53.0); Lymphocytes # (auto) 1.8 10 ^3/uL (0.4-5.4); Lymphocytes % (auto) 21.3 % (10.0-50.0); Mean Corpuscular Hemoglobin 33.8 pg (28.0-32.0); Mean Corpuscular Hgb Conc. 33.2 g/dL (32.0-36.0); Mean Corpuscular Volume 101.8 fL (80.0-100.0); Monocytes # (auto) 0.6 10 ^3/uL (0-1.3); Monocytes % (auto) 6.9 % (0.0-12.0); Neutrophils # (auto) 5.9 10 ^3/uL (1.6-8.6); Neutrophils % (auto) 70.6 % (37.0-80.0); Platelet Count (auto) 232 10^3/uL (140-450); Red Cell Distribution Width 13.9 % (11.8-14.3); White Blood Cell 8.3 10^3/uL (4.4-10.8)
[2020-06-24 13:02] LABS: Protein, Urine 5.5 mg/dL (0.0-11.9)
[2020-06-24 13:04] LABS: BUN/Creatinine Ratio 19.3; Calcium 8.5 mg/dL (8.5-10.1); Phosphorus 3.3 mg/dL (2.5-4.90); Potassium 3.8 mmol/L (3.5-5.1); Uric Acid 5.7 mg/dL (3.5-7.2)
== END | disposition home or self-care (01) ==
LOC: LAB 12:01
PROVIDERS: ATTEND Student in an Organized Health Care Education/Training Program
DX: N18.3 Chronic kidney disease, stage 3 (moderate) (principal); D63.1 Anemia in chronic kidney disease; R80.9 Proteinuria, unspecified; E56.9 Vitamin deficiency, unspecified; E21.3 Hyperparathyroidism, unspecified; M10.9 Gout, unspecified
CPT/HCPCS: 36415; 80069; 81001; 82306; 82570; 84156; 84550; 85025

== ENCOUNTER 2021-01-25 14:30 | Inpatient (IN) | payer MEDICAID ==
[~2021-01-25] VITALS: Ht 167.6 cm; Wt 117.5 kg
[2021-01-25] MEDS ORDERED: SODIUM CHLORIDE 0.9% 1,000 ML IVB ONE (15:30)
[2021-01-25] MEDS ORDERED: ONDANSETRON HCL 4 MG/2 ML VIAL IV ONE (15:30)
[2021-01-25 15:54] LABS: Basophils # (auto) 0 10 ^3/uL (0-0.2); Basophils % (auto) 0.1 % (0.0-2.0); Eosinophils # (auto) 0.1 10 ^3/uL (0-0.8); Eosinophils % (auto) 0.4 % (0.0-7.0); Hematocrit 46.4 % (41.0-53.0); Hemoglobin 15.7 g/dL (13.5-17.5); Lymphocytes # (auto) 1.9 10 ^3/uL (0.4-5.4); Lymphocytes % (auto) 9.7 % (10.0-50.0); Mean Corpuscular Hemoglobin 33.9 pg (28.0-32.0); Mean Corpuscular Hgb Conc. 33.9 g/dL (32.0-36.0); Mean Corpuscular Volume 99.9 fL (80.0-100.0); Monocytes # (auto) 0.9 10 ^3/uL (0-1.3); Monocytes % (auto) 4.6 % (0.0-12.0); Neutrophils # (auto) 17.1 10 ^3/uL (1.6-8.6); Neutrophils % (auto) 85.2 % (37.0-80.0); Platelet Count (auto) 174 10^3/uL (140-450); Red Blood Cells 4.64 10^6/uL (4.5-5.90); Red Cell Distribution Width 13.6 % (11.8-14.3); White Blood Cell 20.1 10^3/uL (4.4-10.8)
[2021-01-25 16:07] LABS: INR 1.02 (0.9-1.15); Partial Thromboplastin Time 24.9 sec (23.0-31.2)
[2021-01-25 16:14] LABS: Albumin 3.4 g/dL (3.4-5.0); Anion Gap 9 (5-15); Blood Urea Nitrogen 18 mg/dL (7-18); Calcium 8.5 mg/dL (8.5-10.1); Carbon Dioxide 20 mmol/L (21-32); Chloride 109 mmol/L (98-107); Glucose 142 mg/dL (74-106); Potassium 3.2 mmol/L (3.5-5.1); Sodium 138 mmol/L (136-145)
[2021-01-25 16:23] LABS: Alanine Aminotransferase 103 U/L (16-61); Alkaline Phosphatase 106 U/L (45-117); Aspartate Aminotransferase 140 U/L (15-37); BUN/Creatinine Ratio 14.8; Bilirubin, Total 0.6 mg/dL (0.2-1.0); GFR African American 77 mL/min; GFR Non-African American 64 mL/min; Total Protein 7.6 g/dL (6.4-8.2)
[2021-01-25] MEDS ORDERED: MORPHINE SULF INJ 2 MG/ML SYRINGE 1ML IV ONE (17:15)
[2021-01-25] MEDS ORDERED: PROMETHAZINE HCL 25 MG/ML 1ML IV ONE (17:15)
[2021-01-25 17:55] LABS: Amylase 6363 U/L (25-115)
[2021-01-25 17:56] LABS: Lipase 90728 U/L (73-393)
[2021-01-25] MEDS ORDERED: FUROSEMIDE 40 MG TAB PO SCH (18:00)
[2021-01-25] MEDS ORDERED: cefTRIAXone 1GM/50ML D5W 50 ML IV ONE (18:15)
[2021-01-25] MEDS: POTASSIUM CHL 20MEQ/100ML 100 ML IV SCH ×2 (19:30→22:13)
[2021-01-25] MEDS ORDERED: NITROGLYCERIN 0.4 MG SL TAB SL PRN (19:30)
[2021-01-25] MEDS ORDERED: ONDANSETRON HCL 4 MG/2 ML VIAL IV PRN (19:30)
[2021-01-25] MEDS ORDERED: SODIUM CHLORIDE 0.9% 1,000 ML IV ONE (19:30)
[2021-01-25] MEDS ORDERED: MORPHINE SULF INJ 2 MG/ML SYRINGE 1ML IV PRN (19:30)
[2021-01-25 20:15] LABS: Lactic Acid w/Reflex 3.6 mmol/L (0.4-2.0)
[2021-01-25 20:16] LABS: Lactate Dehydrogenase 441 U/L (87-241); Triglycerides 55 mg/dL (< 150)
[2021-01-25] MEDS: MORPHINE SULF INJ 2 MG/ML SYRINGE 1ML IV PRN (20:20)
[2021-01-25 21:21] LABS: Urine Bacteria FEW /hpf (None Seen); Urine Blood TRACE /uL (Negative); Urine Mucus FEW (None Seen); Urine Specific Gravity 1.023 (1.001-1.035); Urine WBC 1 /hpf (0 - 3)
[2021-01-25 22:00] VITALS: BP 133/87
[2021-01-25] MEDS: GABAPENTIN 300 MG CAP PO SCH ×2 (22:00→22:13)
[2021-01-25 22:10] VITALS: BP 130/62
[2021-01-25] MEDS: ATORVASTATIN 20 MG TAB PO SCH (22:13)
[2021-01-25] MEDS: levETIRAcetam 500 MG TAB PO SCH (22:27)
[2021-01-25] MEDS: TOPIRAMATE 100 MG TAB PO SCH (22:27)
[2021-01-25] MEDS ORDERED: APIX5TAB PO (22:38)
[2021-01-25] MEDS ORDERED: PNEUMOCOCCAL VACC POLYS 25 MCG/0.5 ML VIAL IM ONE (22:45)
[2021-01-25] MEDS: ACETAMINOPHEN 325 MG TAB PO PRN (23:04)
[2021-01-26] MEDS: MORPHINE SULF INJ 2 MG/ML SYRINGE 1ML IV PRN ×6 (00:32→22:42)
[2021-01-26] MEDS: GABAPENTIN 300 MG CAP PO SCH ×3 (02:41→21:10)
[2021-01-26 05:00] VITALS: BP 114/66
[2021-01-26 07:18] LABS: Basophils # (auto) 0 10 ^3/uL (0-0.2); Eosinophils # (auto) 0 10 ^3/uL (0-0.8); Hematocrit 47.6 % (41.0-53.0); Monocytes # (auto) 0.8 10 ^3/uL (0-1.3); Red Blood Cells 4.77 10^6/uL (4.5-5.90); White Blood Cell 15.3 10^3/uL (4.4-10.8)
[2021-01-26 07:20] LABS: Basophils % (auto) 0.2 % (0.0-2.0); Hemoglobin 16.5 g/dL (13.5-17.5); Lymphocytes # (auto) 1.6 10 ^3/uL (0.4-5.4); Lymphocytes % (auto) 10.7 % (10.0-50.0); Mean Corpuscular Hemoglobin 34.6 pg (28.0-32.0); Mean Corpuscular Hgb Conc. 34.7 g/dL (32.0-36.0); Mean Corpuscular Volume 99.7 fL (80.0-100.0); Monocytes % (auto) 5.3 % (0.0-12.0); Neutrophils # (auto) 12.9 10 ^3/uL (1.6-8.6); Neutrophils % (auto) 83.8 % (37.0-80.0); Nucleated Red Blood Cells % 0.1 %; Platelet Count (auto) 179 10^3/uL (140-450); Red Cell Distribution Width 13.4 % (11.8-14.3)
[2021-01-26 09:00] VITALS: BP 120/71
[2021-01-26] MEDS: CLOPIDOGREL BISULFATE 75 MG TAB PO SCH (09:04)
[2021-01-26] MEDS: ALLOPURINOL 100 MG TAB PO SCH (09:05)
[2021-01-26] MEDS: ASPirin 81 mg TAB PO SCH (09:05)
[2021-01-26] MEDS: CHOLECALCIFEROL (VITD3) 2,000 UNIT CAP/TAB PO SCH (09:06)
[2021-01-26] MEDS: levETIRAcetam 500 MG TAB PO SCH ×2 (09:06→21:10)
[2021-01-26] MEDS: METOPROLOL SUCCINATE XL 50 MG TAB PO SCH (09:06)
[2021-01-26] MEDS: LORATADINE 10 MG TAB PO SCH (09:06)
[2021-01-26] MEDS: FOLIC ACID 1 MG TAB PO SCH (09:06)
[2021-01-26] MEDS: CYANOCOBALAMIN 500 MCG TAB PO SCH (09:07)
[2021-01-26] MEDS: TOPIRAMATE 100 MG TAB PO SCH ×2 (09:07→21:11)
[2021-01-26] MEDS: FINASTERIDE 5 MG TAB PO SCH (09:07)
[2021-01-26] MEDS: ENOXAPARIN SOD 40 MG/0.4 ML SYRINGE SC SCH (09:08)
[2021-01-26] MEDS ORDERED: PANTOPRAZOLE 40 MG/10 ML VIAL INJ IV SCH (10:00)
[2021-01-26 11:26] LABS: Alanine Aminotransferase 105 U/L (16-61); Albumin 2.3 g/dL (3.4-5.0); Alkaline Phosphatase 83 U/L (45-117); Anion Gap 10 (5-15); Aspartate Aminotransferase 66 U/L (15-37); BUN/Creatinine Ratio 13.7; Bilirubin, Total 0.5 mg/dL (0.2-1.0); Blood Urea Nitrogen 14 mg/dL (7-18); Calcium 7.2 mg/dL (8.5-10.1); Carbon Dioxide 16 mmol/L (21-32); Chloride 115 mmol/L (98-107); GFR African American 95 mL/min; GFR Non-African American 78 mL/min; Glucose 93 mg/dL (74-106); Potassium 4.3 mmol/L (3.5-5.1); Sodium 141 mmol/L (136-145); Total Protein 6.5 g/dL (6.4-8.2)
[2021-01-26 11:27] LABS: Amylase > 1302 U/L (25-115); Lipase 6215 U/L (73-393); Magnesium 1.5 mg/dL (1.6-2.6)
[2021-01-26 12:56] VITALS: BP 137/64
[2021-01-26 17:00] VITALS: BP 116/66
[2021-01-26] MEDS ORDERED: CLINIMIX PER PHARMACY 0 ML IV SCH (20:30)
[2021-01-26] MEDS ORDERED: AMINO ACID INFUSION IN D10W 1,000 ML IV NR (20:45)
[2021-01-26] MEDS ORDERED: SODIUM PHOSPHATES 24 MEQ in SODIUM CHL 0.9% 100 ML IV ONE (20:45)
[2021-01-26] MEDS ORDERED: MAGNESIUM SULFATE 1GM/100ML 100 ML IV ONE (20:45)
[2021-01-26] MEDS: ATORVASTATIN 20 MG TAB PO SCH (21:10)
[2021-01-26] MEDS: ACETAMINOPHEN 325 MG TAB PO PRN (21:11)
[2021-01-26 22:00] VITALS: BP 99/62
[2021-01-27] MEDS ORDERED: DEXTROSE (50%) 50ML SYRG IV SCH
[2021-01-27] MEDS: GABAPENTIN 300 MG CAP PO SCH ×3 (00:17→22:05)
[2021-01-27] MEDS: ACCU-CHEK COMFORT CURVE STRIP VI SCH ×5 (00:17→23:54)
[2021-01-27 05:06] VITALS: BP 105/67
[2021-01-27] MEDS: MORPHINE SULF INJ 2 MG/ML SYRINGE 1ML IV PRN ×4 (05:28→23:58)
[2021-01-27] MEDS: InsuLIN REG 1unit/0.01ml Soln (100units/ml) SC SCH ×5 (05:39→23:54)
[2021-01-27 09:00] VITALS: BP 92/56
[2021-01-27] MEDS: CHOLECALCIFEROL (VITD3) 2,000 UNIT CAP/TAB PO SCH (10:18)
[2021-01-27] MEDS: CYANOCOBALAMIN 500 MCG TAB PO SCH (10:18)
[2021-01-27] MEDS: ESOMEPRAZOLE 40 MG/5ml VIAL INJ IV SCH (10:18)
[2021-01-27] MEDS: ASPirin 81 mg TAB PO SCH (10:19)
[2021-01-27] MEDS: FINASTERIDE 5 MG TAB PO SCH (10:19)
[2021-01-27] MEDS: CLOPIDOGREL BISULFATE 75 MG TAB PO SCH (10:19)
[2021-01-27] MEDS: TOPIRAMATE 100 MG TAB PO SCH ×2 (10:19→22:06)
[2021-01-27] MEDS: LORATADINE 10 MG TAB PO SCH (10:19)
[2021-01-27] MEDS: ENOXAPARIN SOD 40 MG/0.4 ML SYRINGE SC SCH (10:19)
[2021-01-27] MEDS: FOLIC ACID 1 MG TAB PO SCH (10:19)
[2021-01-27] MEDS: levETIRAcetam 500 MG TAB PO SCH ×2 (10:19→22:06)
[2021-01-27] MEDS: ALLOPURINOL 100 MG TAB PO SCH (10:20)
[2021-01-27] MEDS: METOPROLOL SUCCINATE XL 50 MG TAB PO SCH (10:22)
[2021-01-27 10:57] LABS: Basophils # (auto) 0 10 ^3/uL (0-0.2); Basophils % (auto) 0.2 % (0.0-2.0); Eosinophils # (auto) 0.1 10 ^3/uL (0-0.8); Eosinophils % (auto) 0.3 % (0.0-7.0); Hematocrit 46.9 % (41.0-53.0); Hemoglobin 15.5 g/dL (13.5-17.5); Lymphocytes # (auto) 1.6 10 ^3/uL (0.4-5.4); Lymphocytes % (auto) 6.7 % (10.0-50.0); Mean Corpuscular Hemoglobin 33.4 pg (28.0-32.0); Mean Corpuscular Volume 101.1 fL (80.0-100.0); Monocytes # (auto) 1.1 10 ^3/uL (0-1.3); Monocytes % (auto) 4.9 % (0.0-12.0); Neutrophils # (auto) 20.6 10 ^3/uL (1.6-8.6); Neutrophils % (auto) 87.9 % (37.0-80.0); Platelet Count (auto) 166 10^3/uL (140-450); Red Blood Cells 4.64 10^6/uL (4.5-5.90); Red Cell Distribution Width 13.7 % (11.8-14.3); White Blood Cell 23.4 10^3/uL (4.4-10.8)
[2021-01-27 11:00] LABS: Albumin 2.3 g/dL (3.4-5.0); Calcium 8.7 mg/dL (8.5-10.1); Magnesium 2.5 mg/dL (1.6-2.6); Potassium 4.4 mmol/L (3.5-5.1)
[2021-01-27 11:09] LABS: BUN/Creatinine Ratio 18.9; Bilirubin, Total 0.7 mg/dL (0.2-1.0); Phosphorus 1.8 mg/dL (2.5-4.90); Pre Albumin 10.5 mg/dL (20.0-40.0); Total Protein 6.3 g/dL (6.4-8.2)
[2021-01-27 13:00] VITALS: BP 102/62
[2021-01-27] MEDS ORDERED: SODIUM PHOSPHATES 20 MEQ in SODIUM CHL 0.9% 100 ML IV ONE (15:00)
[2021-01-27 17:00] VITALS: BP 96/73
[2021-01-27] MEDS ORDERED: AMINO ACID INFUSION IN D10W 1,000 ML IV NR (20:00)
[2021-01-27] MEDS: ATORVASTATIN 20 MG TAB PO SCH (22:05)
[2021-01-27] MEDS: ACETAMINOPHEN 325 MG TAB PO PRN (22:06)
[2021-01-27 22:23] VITALS: BP 112/61
[2021-01-28 05:00] VITALS: BP 111/64
[2021-01-28] MEDS: ACCU-CHEK COMFORT CURVE STRIP VI SCH ×4 (05:37→23:07)
[2021-01-28] MEDS: GABAPENTIN 300 MG CAP PO SCH ×3 (05:37→21:58)
[2021-01-28] MEDS: MORPHINE SULF INJ 2 MG/ML SYRINGE 1ML IV PRN ×3 (05:38→22:57)
[2021-01-28] MEDS: InsuLIN REG 1unit/0.01ml Soln (100units/ml) SC SCH ×4 (05:38→23:07)
[2021-01-28 08:54] VITALS: BP 130/64
[2021-01-28] MEDS: ESOMEPRAZOLE 40 MG/5ml VIAL INJ IV SCH (11:07)
[2021-01-28] MEDS: ASPirin 81 mg TAB PO SCH (11:07)
[2021-01-28] MEDS: TOPIRAMATE 100 MG TAB PO SCH ×2 (11:08→21:59)
[2021-01-28] MEDS: LORATADINE 10 MG TAB PO SCH (11:08)
[2021-01-28] MEDS: levETIRAcetam 500 MG TAB PO SCH ×2 (11:08→21:59)
[2021-01-28] MEDS: CLOPIDOGREL BISULFATE 75 MG TAB PO SCH (11:08)
[2021-01-28] MEDS: CHOLECALCIFEROL (VITD3) 2,000 UNIT CAP/TAB PO SCH (11:08)
[2021-01-28] MEDS: ALLOPURINOL 100 MG TAB PO SCH (11:09)
[2021-01-28] MEDS: CYANOCOBALAMIN 500 MCG TAB PO SCH (11:09)
[2021-01-28] MEDS: ENOXAPARIN SOD 40 MG/0.4 ML SYRINGE SC SCH (11:22)
[2021-01-28] MEDS: METOPROLOL SUCCINATE XL 50 MG TAB PO SCH (11:25)
[2021-01-28] MEDS: FINASTERIDE 5 MG TAB PO SCH (11:33)
[2021-01-28] MEDS: FOLIC ACID 1 MG TAB PO SCH (11:33)
[2021-01-28 11:50] LABS: Albumin 1.9 g/dL (3.4-5.0); Calcium 8.6 mg/dL (8.5-10.1); Potassium 4.3 mmol/L (3.5-5.1)
[2021-01-28 11:53] LABS: Bilirubin, Total 0.7 mg/dL (0.2-1.0); Total Protein 6.3 g/dL (6.4-8.2)
[2021-01-28 11:56] LABS: Magnesium 2.5 mg/dL (1.6-2.6); Phosphorus 2.1 mg/dL (2.5-4.90)
[2021-01-28 13:00] VITALS: BP 108/61
[2021-01-28 14:33] LABS: Basophils # (auto) 0.2 10 ^3/uL (0-0.2); Basophils % (auto) 1.2 % (0.0-2.0); Eosinophils # (auto) 0.1 10 ^3/uL (0-0.8); Eosinophils % (auto) 0.7 % (0.0-7.0); Hematocrit 40.3 % (41.0-53.0); Hemoglobin 13.5 g/dL (13.5-17.5); Lymphocytes # (auto) 1.6 10 ^3/uL (0.4-5.4); Lymphocytes % (auto) 9.1 % (10.0-50.0); Mean Corpuscular Hemoglobin 33.7 pg (28.0-32.0); Mean Corpuscular Hgb Conc. 33.6 g/dL (32.0-36.0); Mean Corpuscular Volume 100.3 fL (80.0-100.0); Monocytes % (auto) 5.8 % (0.0-12.0); Neutrophils # (auto) 14.6 10 ^3/uL (1.6-8.6); Neutrophils % (auto) 83.2 % (37.0-80.0); Nucleated Red Blood Cells % 0.1 %; Platelet Count (auto) 162 10^3/uL (140-450); Red Blood Cells 4.02 10^6/uL (4.5-5.90); Red Cell Distribution Width 13.4 % (11.8-14.3); White Blood Cell 17.6 10^3/uL (4.4-10.8)
[2021-01-28] MEDS ORDERED: POTASSIUM PHOSPHATE IV ONE (16:45)
[2021-01-28] MEDS ORDERED: D5W 5% IV ONE (16:45)
[2021-01-28] MEDS ORDERED: SODIUM ACETATE IV ONE (16:45)
[2021-01-28 17:00] VITALS: BP 103/57
[2021-01-28] MEDS ORDERED: AMINO ACID INFUSION IN D10W 1,000 ML IV NR (20:00)
[2021-01-28] MEDS ORDERED: LORazepam 2MG/ML-1ML VIAL IV PRN (20:45)
[2021-01-28] MEDS: ATORVASTATIN 20 MG TAB PO SCH (21:59)
[2021-01-28 22:00] VITALS: BP 100/58
[2021-01-29] MEDS: MORPHINE SULF INJ 2 MG/ML SYRINGE 1ML IV PRN ×4 (04:14→22:35)
[2021-01-29 05:00] VITALS: BP 103/46
[2021-01-29] MEDS: InsuLIN REG 1unit/0.01ml Soln (100units/ml) SC SCH ×4 (05:41→23:40)
[2021-01-29] MEDS: GABAPENTIN 300 MG CAP PO SCH ×3 (05:41→21:03)
[2021-01-29] MEDS: ACCU-CHEK COMFORT CURVE STRIP VI SCH ×4 (05:41→23:40)
[2021-01-29 06:57] LABS: Basophils # (auto) 0 10 ^3/uL (0-0.2); Hemoglobin 13.2 g/dL (13.5-17.5); Lymphocytes # (auto) 1.3 10 ^3/uL (0.4-5.4); Mean Corpuscular Hemoglobin 34.5 pg (28.0-32.0); Monocytes # (auto) 1.2 10 ^3/uL (0-1.3); Red Cell Distribution Width 13.7 % (11.8-14.3)
[2021-01-29 06:59] LABS: Basophils % (auto) 0.2 % (0.0-2.0); Eosinophils # (auto) 0.2 10 ^3/uL (0-0.8); Eosinophils % (auto) 1.5 % (0.0-7.0); Hematocrit 39.9 % (41.0-53.0); Lymphocytes % (auto) 8.9 % (10.0-50.0); Mean Corpuscular Hgb Conc. 33.1 g/dL (32.0-36.0); Mean Corpuscular Volume 104.1 fL (80.0-100.0); Monocytes % (auto) 7.9 % (0.0-12.0); Neutrophils # (auto) 12.1 10 ^3/uL (1.6-8.6); Neutrophils % (auto) 81.5 % (37.0-80.0); Platelet Count (auto) 155 10^3/uL (140-450); Red Blood Cells 3.83 10^6/uL (4.5-5.90); White Blood Cell 14.8 10^3/uL (4.4-10.8)
[2021-01-29 07:11] LABS: Calcium 8.5 mg/dL (8.5-10.1); Magnesium 2.4 mg/dL (1.6-2.6); Potassium 3.8 mmol/L (3.5-5.1)
[2021-01-29 07:17] LABS: Bilirubin, Total 0.5 mg/dL (0.2-1.0); Phosphorus 2.1 mg/dL (2.5-4.90); Total Protein 6.3 g/dL (6.4-8.2)
[2021-01-29 09:00] VITALS: BP 103/54
[2021-01-29] MEDS: ASPirin 81 mg TAB PO SCH (09:42)
[2021-01-29] MEDS: ESOMEPRAZOLE 40 MG/5ml VIAL INJ IV SCH (09:42)
[2021-01-29] MEDS: FOLIC ACID 1 MG TAB PO SCH (09:43)
[2021-01-29] MEDS: levETIRAcetam 500 MG TAB PO SCH ×2 (09:43→21:04)
[2021-01-29] MEDS: CLOPIDOGREL BISULFATE 75 MG TAB PO SCH (09:43)
[2021-01-29] MEDS: LORATADINE 10 MG TAB PO SCH (09:43)
[2021-01-29] MEDS: CYANOCOBALAMIN 500 MCG TAB PO SCH (09:44)
[2021-01-29] MEDS: FINASTERIDE 5 MG TAB PO SCH (09:44)
[2021-01-29] MEDS: TOPIRAMATE 100 MG TAB PO SCH ×2 (09:44→21:03)
[2021-01-29] MEDS: CHOLECALCIFEROL (VITD3) 2,000 UNIT CAP/TAB PO SCH (09:45)
[2021-01-29] MEDS: ALLOPURINOL 100 MG TAB PO SCH (09:45)
[2021-01-29] MEDS: ENOXAPARIN SOD 40 MG/0.4 ML SYRINGE SC SCH (09:45)
[2021-01-29] MEDS: METOPROLOL SUCCINATE XL 50 MG TAB PO SCH (10:00)
[2021-01-29] MEDS ORDERED: SODIUM PHOSPHATES 40 MEQ in D5W 5% 250 ML IV ONE (10:00)
[2021-01-29 12:50] VITALS: BP 120/84
[2021-01-29 12:54] VITALS: BP 98/57
[2021-01-29 17:00] VITALS: BP 124/61
[2021-01-29] MEDS ORDERED: AMINO ACID INFUSION IN D10W 2,000 ML IV NR (20:00)
[2021-01-29] MEDS: ATORVASTATIN 20 MG TAB PO SCH (21:03)
[2021-01-29 22:00] VITALS: BP 109/60
[2021-01-30 05:00] VITALS: BP 115/60
[2021-01-30] MEDS: ACCU-CHEK COMFORT CURVE STRIP VI SCH ×4 (05:12→23:22)
[2021-01-30] MEDS: GABAPENTIN 300 MG CAP PO SCH ×3 (05:12→21:12)
[2021-01-30] MEDS: InsuLIN REG 1unit/0.01ml Soln (100units/ml) SC SCH ×5 (05:12→23:22)
[2021-01-30 06:22] LABS: Albumin 1.9 g/dL (3.4-5.0); Calcium 8.3 mg/dL (8.5-10.1); Magnesium 2.4 mg/dL (1.6-2.6); Potassium 3.6 mmol/L (3.5-5.1)
[2021-01-30 06:26] LABS: BUN/Creatinine Ratio 23.1; Bilirubin, Total 0.7 mg/dL (0.2-1.0); Phosphorus 2.9 mg/dL (2.5-4.90); Total Protein 6.2 g/dL (6.4-8.2)
[2021-01-30] MEDS: MORPHINE SULF INJ 2 MG/ML SYRINGE 1ML IV PRN ×2 (08:31→23:18)
[2021-01-30] MEDS: ASPirin 81 mg TAB PO SCH (08:33)
[2021-01-30] MEDS: LORATADINE 10 MG TAB PO SCH (08:33)
[2021-01-30] MEDS: levETIRAcetam 500 MG TAB PO SCH ×2 (08:33→21:12)
[2021-01-30] MEDS: ALLOPURINOL 100 MG TAB PO SCH (08:34)
[2021-01-30] MEDS: CLOPIDOGREL BISULFATE 75 MG TAB PO SCH (08:34)
[2021-01-30] MEDS: TOPIRAMATE 100 MG TAB PO SCH ×2 (08:34→21:12)
[2021-01-30] MEDS: FINASTERIDE 5 MG TAB PO SCH (08:34)
[2021-01-30] MEDS: FOLIC ACID 1 MG TAB PO SCH (08:34)
[2021-01-30] MEDS: PANTOPRAZOLE 40 MG/10 ML VIAL INJ IV SCH (08:35)
[2021-01-30] MEDS: ENOXAPARIN SOD 40 MG/0.4 ML SYRINGE SC SCH (08:36)
[2021-01-30] MEDS: METOPROLOL SUCCINATE XL 50 MG TAB PO SCH (08:36)
[2021-01-30 09:00] VITALS: BP 117/57
[2021-01-30 11:31] LABS: Amylase 172 U/L (25-115); Lipase 389 U/L (73-393)
[2021-01-30 13:00] VITALS: BP 102/59
[2021-01-30] MEDS: ACETAMINOPHEN 325 MG TAB PO PRN (13:21)
[2021-01-30 17:00] VITALS: BP 102/49
[2021-01-30] MEDS ORDERED: AMINO ACID INFUSION IN D10W 1,000 ML IV NR (20:00)
[2021-01-30] MEDS: ATORVASTATIN 20 MG TAB PO SCH (21:12)
[2021-01-30 22:00] VITALS: BP 106/57
[2021-01-31 05:00] VITALS: BP 108/52
[2021-01-31 05:55] LABS: Basophils # (auto) 0.1 10 ^3/uL (0-0.2); Basophils % (auto) 0.5 % (0.0-2.0); Eosinophils # (auto) 0.3 10 ^3/uL (0-0.8); Eosinophils % (auto) 2.4 % (0.0-7.0); Hematocrit 34.5 % (41.0-53.0); Hemoglobin 11.6 g/dL (13.5-17.5); Lymphocytes # (auto) 1.6 10 ^3/uL (0.4-5.4); Lymphocytes % (auto) 12.5 % (10.0-50.0); Mean Corpuscular Hemoglobin 33.8 pg (28.0-32.0); Mean Corpuscular Hgb Conc. 33.6 g/dL (32.0-36.0); Mean Corpuscular Volume 100.6 fL (80.0-100.0); Monocytes % (auto) 7.8 % (0.0-12.0); Neutrophils # (auto) 10.1 10 ^3/uL (1.6-8.6); Neutrophils % (auto) 76.8 % (37.0-80.0); Platelet Count (auto) 179 10^3/uL (140-450); Red Blood Cells 3.42 10^6/uL (4.5-5.90); Red Cell Distribution Width 13.4 % (11.8-14.3); White Blood Cell 13.1 10^3/uL (4.4-10.8)
[2021-01-31] MEDS: GABAPENTIN 300 MG CAP PO SCH ×2 (06:00→13:48)
[2021-01-31 06:14] LABS: Albumin 1.7 g/dL (3.4-5.0); Calcium 8.2 mg/dL (8.5-10.1); Magnesium 2.3 mg/dL (1.6-2.6); Potassium 3.5 mmol/L (3.5-5.1)
[2021-01-31 06:17] LABS: BUN/Creatinine Ratio 21.5; Bilirubin, Total 0.6 mg/dL (0.2-1.0); Phosphorus 2.6 mg/dL (2.5-4.90); Total Protein 5.9 g/dL (6.4-8.2)
[2021-01-31] MEDS: ACCU-CHEK COMFORT CURVE STRIP VI SCH ×3 (06:17→18:00)
[2021-01-31] MEDS: InsuLIN REG 1unit/0.01ml Soln (100units/ml) SC SCH ×3 (06:21→18:00)
[2021-01-31] MEDS ORDERED: MEPERIDINE HCL (25 MG/ML) 1ML VIAL ONE (08:40)
[2021-01-31] MEDS ORDERED: MIDAZOLAM HCL 1MG/1ML-2 ML VIAL ONE (08:40)
[2021-01-31] MEDS ORDERED: ONDANSETRON HCL 4 MG/2 ML VIAL ONE (08:40)
[2021-01-31] MEDS ORDERED: SODIUM CHLORIDE LOCK 0 ML ONE (08:40)
[2021-01-31] MEDS ORDERED: fentaNYL CITRATE 100 MCG/2 ML VL ONE (08:40)
[2021-01-31] MEDS ORDERED: GLYCOPYRROLATE 0.2 MG/ML 1ML VIAL ONE (08:40)
[2021-01-31] MEDS ORDERED: ROCURONIUM 10MG/ML 10ML VIAL IV ONE (08:40)
[2021-01-31] MEDS ORDERED: PROPOFOL 10 MG/ML 20 ML IV ONE (08:40)
[2021-01-31] MEDS ORDERED: NEOSTIGMINE 1 MG/ML INJ (10mg/10ML VIAL) ONE (08:40)
[2021-01-31 09:00] VITALS: BP 105/53
[2021-01-31] MEDS ORDERED: BUPIVACAINE 0.25% INJ 50ML VIAL ONE (09:13)
[2021-01-31] MEDS: LORATADINE 10 MG TAB PO SCH (09:59)
[2021-01-31] MEDS: ALLOPURINOL 100 MG TAB PO SCH (09:59)
[2021-01-31] MEDS: FOLIC ACID 1 MG TAB PO SCH (10:00)
[2021-01-31] MEDS: PANTOPRAZOLE 40 MG/10 ML VIAL INJ IV SCH (10:00)
[2021-01-31] MEDS: ASPirin 81 mg TAB PO SCH (10:00)
[2021-01-31] MEDS: FINASTERIDE 5 MG TAB PO SCH (10:00)
[2021-01-31] MEDS: CLOPIDOGREL BISULFATE 75 MG TAB PO SCH (10:00)
[2021-01-31] MEDS: levETIRAcetam 500 MG TAB PO SCH (10:00)
[2021-01-31] MEDS: METOPROLOL SUCCINATE XL 50 MG TAB PO SCH (10:00)
[2021-01-31] MEDS: ENOXAPARIN SOD 40 MG/0.4 ML SYRINGE SC SCH (10:00)
[2021-01-31] MEDS: TOPIRAMATE 100 MG TAB PO SCH (10:01)
[2021-01-31 13:00] VITALS: BP 116/43
[2021-01-31] MEDS ORDERED: IBUP600T27 PO (15:03)
[2021-01-31 17:00] VITALS: BP 115/60
[2021-01-31] MEDS ORDERED: PNEUMOCOCCAL VACC POLYS 25 MCG/0.5 ML VIAL IM ONE (19:30)
[2021-01-31] MEDS ORDERED: AMINO ACID INFUSION IN D10W 1,000 ML IV NR (20:00)
== END 2021-01-31 20:30 | disposition home or self-care (01) | DRG 282 ==
LOC: EDBD 14:30 → ER 14:30 → TELE 19:20 → TELE-WESTW 21:44
PROVIDERS: ADMIT Internal Medicine; ATTEND Internal Medicine
DX: K85.10 Biliary acute pancreatitis without necrosis or infection (principal); N17.0 Acute kidney failure with tubular necrosis; J96.01 Acute respiratory failure with hypoxia; K80.20 Calculus of gallbladder without cholecystitis without obstruction; G40.909 Epilepsy, unspecified, not intractable, without status epilepticus; E66.01 Morbid (severe) obesity due to excess calories; I25.10 Atherosclerotic heart disease of native coronary artery without angina pectoris; D72.829 Elevated white blood cell count, unspecified; E78.5 Hyperlipidemia, unspecified; E87.2 Acidosis; Z68.37 Body mass index [BMI] 37.0-37.9, adult; I11.0 Hypertensive heart disease with heart failure; M10.9 Gout, unspecified; N40.0 Benign prostatic hyperplasia without lower urinary tract symptoms; Z81.8 Family history of other mental and behavioral disorders; Z82.49 Family history of ischemic heart disease and other diseases of the circulatory system; Z95.5 Presence of coronary angioplasty implant and graft; I50.9 Heart failure, unspecified; K21.9 Gastro-esophageal reflux disease without esophagitis; Z20.822 Contact with and (suspected) exposure to COVID-19; Z88.5 Allergy status to narcotic agent; Z88.0 Allergy status to penicillin; Z79.899 Other long term (current) drug therapy
CPT/HCPCS: 36415; 71045; 74176; 74181; 76705; 80053; 81001; 82040; 82150; 82962; 83605; 83615; 83690; 83735; 83880; 84100; 84478; 84484; 85025; 85610; 85730; 86850; 86900; 86901; 87040; 87081; 87426; 93005; 97110; 97116; 97530; C9113; G0378; J0696; J1815; J2250; J2405; J2704; J3480; J3490; J7060

== ENCOUNTER 2023-01-08 11:34 | Inpatient (IN) | payer MEDICARE, MEDICAID ==
[~2023-01-08] VITALS: Ht 167.6 cm; Wt 131.6 kg
[~2023-01-08 11:34] MED LIST changes: +APIX5TAB PO; +IBUP600T27 PO
[2023-01-08 15:40] LABS: Basophils # (auto) 0.1 10 ^3/uL (0-0.2); Basophils % (auto) 0.3 % (0.0-2.0); Eosinophils # (auto) 0 10 ^3/uL (0-0.8); Eosinophils % (auto) 0.1 % (0.0-7.0); Hematocrit 44.9 % (41.0-53.0); Hemoglobin 14.5 g/dL (13.5-17.5); Lymphocytes # (auto) 1.3 10 ^3/uL (0.4-5.4); Lymphocytes % (auto) 5.6 % (10.0-50.0); Mean Corpuscular Hemoglobin 32.5 pg (28.0-32.0); Mean Corpuscular Hgb Conc. 32.3 g/dL (32.0-36.0); Mean Corpuscular Volume 100.8 fL (80.0-100.0); Monocytes # (auto) 1.2 10 ^3/uL (0-1.3); Monocytes % (auto) 5.4 % (0.0-12.0); Neutrophils % (auto) 88.6 % (37.0-80.0); Nucleated Red Blood Cells % 0.1 %; Red Blood Cells 4.45 10^6/uL (4.5-5.90); Red Cell Distribution Width 13.4 % (11.8-14.3); White Blood Cell 22.6 10^3/uL (4.4-10.8)
[2023-01-08 15:47] LABS: BUN/Creatinine Ratio 17.5; Bilirubin, Total 0.5 mg/dL (0.2-1.0); Calcium 8.6 mg/dL (8.5-10.1); Magnesium 1.8 mg/dL (1.6-2.6); Potassium 4.4 mmol/L (3.5-5.1); Total Protein 7.1 g/dL (6.4-8.2)
[2023-01-08] MEDS ORDERED: IOHEXOL 350 MG/ML 100ML IJ ONE (16:08)
[2023-01-08] MEDS ORDERED: AZITHROMYCIN 500MG/ 250ML 250 ML IV ONE (17:15)
[2023-01-08] MEDS ORDERED: cefTRIAXone 1GM/50ML D5W 50 ML IV ONE (17:15)
[2023-01-08] MEDS ORDERED: HYDROcodone-ACET 5/325MG TAB PO ONE (17:15)
[2023-01-08] MEDS ORDERED: LACTATED RINGER'S 1,000 ML IV ONE (17:15)
[2023-01-08] MEDS ORDERED: metroNIDAZOLE 500MG/100ML 100 ML IV ONE (17:15)
[2023-01-08 18:13] LABS: Urine Bacteria NONE SEEN /hpf (None Seen); Urine Blood 1+ /uL (Negative); Urine WBC 3 /hpf (0 - 3)
[2023-01-08 18:23] LABS: Urine Specific Gravity > 1.35 (1.001-1.035)
[2023-01-08] MEDS ORDERED: PANTOPRAZOLE 40 MG/10 ML VIAL INJ IV ONE (21:15)
[2023-01-08 22:57] LABS: INR 1.05 (0.9-1.15); Partial Thromboplastin Time 32.4 sec (24.6-33.4)
[2023-01-08] MEDS: ONDANSETRON HCL 4 MG/2 ML VIAL IV PRN (23:42)
[2023-01-08] MEDS: MORPHINE SULFATE INJ 2 MG/ml SYRG IV PRN (23:42)
[2023-01-09] VITALS (14 sets, daily range): BP systolic 66–131; BP diastolic 31–49
[2023-01-09] MEDS: metroNIDAZOLE 500MG/100ML 100 ML IV SCH ×4 (00:04→15:11)
[2023-01-09 05:13] LABS: Basophils # (auto) 0.1 10 ^3/uL (0-0.2); Basophils % (auto) 0.5 % (0.0-2.0); Eosinophils # (auto) 0 10 ^3/uL (0-0.8); Eosinophils % (auto) 0.1 % (0.0-7.0); Hematocrit 39.6 % (41.0-53.0); Hemoglobin 13.2 g/dL (13.5-17.5); Lymphocytes % (auto) 11.2 % (10.0-50.0); Mean Corpuscular Hemoglobin 32.8 pg (28.0-32.0); Mean Corpuscular Hgb Conc. 33.3 g/dL (32.0-36.0); Mean Corpuscular Volume 98.3 fL (80.0-100.0); Monocytes # (auto) 2.3 10 ^3/uL (0-1.3); Monocytes % (auto) 8.6 % (0.0-12.0); Neutrophils # (auto) 21.1 10 ^3/uL (1.6-8.6); Neutrophils % (auto) 79.6 % (37.0-80.0); Red Blood Cells 4.03 10^6/uL (4.5-5.90); Red Cell Distribution Width 13.2 % (11.8-14.3); White Blood Cell 26.5 10^3/uL (4.4-10.8)
[2023-01-09] MEDS: SODIUM CHLORIDE 0.9% 1,000 ML IV SCH ×4 (05:23→22:10)
[2023-01-09 05:24] LABS: Albumin 2.5 g/dL (3.4-5.0); BUN/Creatinine Ratio 17.3; Calcium 8.6 mg/dL (8.5-10.1); Potassium 4.1 mmol/L (3.5-5.1)
[2023-01-09 05:38] LABS: Bilirubin, Total 0.8 mg/dL (0.2-1.0); Total Protein 6.8 g/dL (6.4-8.2)
[2023-01-09] MEDS: ONDANSETRON HCL 4 MG/2 ML VIAL IV PRN (05:52)
[2023-01-09] MEDS: MORPHINE SULFATE INJ 2 MG/ml SYRG IV PRN (05:52)
[2023-01-09] MEDS ORDERED: LIDOCAINE 2% (LOCAL ANESTH.) PF 5ml SDV ONE (09:41)
[2023-01-09] MEDS ORDERED: HYDROmorphone HCL 2 MG/ML VL/or syr ONE ×3 (09:41→18:50)
[2023-01-09] MEDS ORDERED: ONDANSETRON HCL 4 MG/2 ML VIAL ONE (09:41)
[2023-01-09] MEDS ORDERED: DexAMETHasone SOD PHOS 10MG/1ML VIAL INJ ONE (09:41)
[2023-01-09] MEDS ORDERED: GLYCOPYRROLATE 0.2 MG/ML 1ML VIAL ONE (09:41)
[2023-01-09] MEDS ORDERED: fentaNYL CITRATE 100 MCG/2 ML VL ONE ×3 (09:41→18:44)
[2023-01-09] MEDS ORDERED: KETOROLAC TROMETH 30 MG/ML 1ML VIAL ONE (09:41)
[2023-01-09] MEDS ORDERED: MIDAZOLAM HCL 2MG/2ML 2ml VIAL (1mg/ml) ONE ×4 (09:41→17:30)
[2023-01-09] MEDS ORDERED: PROPOFOL 10 MG/ML 20 ML IV ONE (09:41)
[2023-01-09] MEDS: levoFLOXacin 500MG 100 ML IV SCH (10:46)
[2023-01-09] MEDS: PANTOPRAZOLE 40 MG/10 ML VIAL INJ IV SCH (10:46)
[2023-01-09] MEDS ORDERED: levETIRAcetam 500 MG TAB PO ONE (15:15)
[2023-01-09] MEDS ORDERED: SODIUM CHLORIDE 0.9% 500 ML IV ONE (15:30)
[2023-01-09] MEDS ORDERED: LIDOCAINE W/ EPINEPHRINE 2% INJ 20ML VIAL ONE ×2 (15:54→17:00)
[2023-01-09] MEDS ORDERED: BUPIVACAINE 0.5% P/F INJ 10 ML VIAL ONE (15:54)
[2023-01-09] MEDS ORDERED: BUPIVACAINE 0.25% INJ 50ML VIAL ONE (15:54)
[2023-01-09] MEDS ORDERED: ETOMIDATE (2MG/ML) 20ML VIAL IV ONE (16:49)
[2023-01-09] MEDS ORDERED: ROCURONIUM 10MG/ML 10ML VIAL IV ONE ×2 (16:49→16:50)
[2023-01-09] MEDS ORDERED: CALCIUM CHL(10%) 100MG/ML 10ML VIAL IV ONE (18:52)
[2023-01-09] MEDS ORDERED: MIDAZOLAM DRIP 50 mg/50mL 50 ML IV SCH (20:45)
[2023-01-09] MEDS: fentaNYL Drip 2500mCg/250mlNS 250 ML IV SCH (20:45)
[2023-01-09] MEDS ORDERED: fentaNYL Drip 2500mCg/250mlNS 250 ML IV ONE (20:53)
[2023-01-09] MEDS ORDERED: MIDAZOLAM DRIP 50 mg/50mL 50 ML IV ONE (20:53)
[2023-01-09] MEDS: D5W/SOD CHL 0.45%/KCL 20MEQ 1,000 ML IV SCH (21:00)
[2023-01-09] MEDS: MIDAZOLAM DRIP 50 mg/50mL 50 ML IV SCH (21:00)
[2023-01-09] MEDS ORDERED: ALBUMIN 5% 250 ML IV ONE (22:45)
[2023-01-09] MEDS: ATORVASTATIN 20 MG TAB PO SCH (23:14)
[2023-01-09] MEDS: levETIRAcetam 500 MG TAB PO SCH (23:14)
[2023-01-09 23:41] LABS: Hematocrit 34.3 % (41.0-53.0); Hemoglobin 11.1 g/dL (13.5-17.5)
[2023-01-10] VITALS (92 sets, daily range): BP systolic 72–118; BP diastolic 28–66
[2023-01-10] MEDS: NOREPINEPHRINE 8 MG/250ML KIT 250 ML IV SCH (01:08)
[2023-01-10 04:21] LABS: Basophils # (auto) 0 10 ^3/uL (0-0.2); Eosinophils # (auto) 0 10 ^3/uL (0-0.8); Hematocrit 33.4 % (41.0-53.0); Hemoglobin 11.2 g/dL (13.5-17.5); Lymphocytes # (auto) 0.5 10 ^3/uL (0.4-5.4); Lymphocytes % (auto) 3.1 % (10.0-50.0); Mean Corpuscular Hemoglobin 33.1 pg (28.0-32.0); Mean Corpuscular Hgb Conc. 33.6 g/dL (32.0-36.0); Mean Corpuscular Volume 98.5 fL (80.0-100.0); Monocytes # (auto) 0.5 10 ^3/uL (0-1.3); Neutrophils # (auto) 14.5 10 ^3/uL (1.6-8.6); Neutrophils % (auto) 93.9 % (37.0-80.0); Red Blood Cells 3.39 10^6/uL (4.5-5.90); Red Cell Distribution Width 12.9 % (11.8-14.3); White Blood Cell 15.5 10^3/uL (4.4-10.8)
[2023-01-10 04:32] LABS: Calcium 7.8 mg/dL (8.5-10.1); Potassium 4.6 mmol/L (3.5-5.1)
[2023-01-10] MEDS: SODIUM CHLORIDE 0.9% 1,000 ML IV SCH ×2 (05:11→11:30)
[2023-01-10] MEDS: D5W/SOD CHL 0.45%/KCL 20MEQ 1,000 ML IV SCH ×3 (05:20→20:59)
[2023-01-10] MEDS: MIDAZOLAM DRIP 50 mg/50mL 50 ML IV SCH (05:41)
[2023-01-10] MEDS: metroNIDAZOLE 500MG/100ML 100 ML IV SCH ×3 (05:41→20:59)
[2023-01-10] MEDS ORDERED: ALLOPURINOL 100 MG TAB PO SCH (10:00)
[2023-01-10] MEDS ORDERED: ASPirin 81 mg TAB PO SCH (10:00)
[2023-01-10] MEDS: levoFLOXacin 500MG 100 ML IV SCH (10:49)
[2023-01-10] MEDS: PANTOPRAZOLE 40 MG/10 ML VIAL INJ IV SCH (10:49)
[2023-01-10] MEDS: levETIRAcetam 500 MG TAB PO SCH ×2 (10:50→20:59)
[2023-01-10] MEDS: GABAPENTIN 300 MG CAP PO SCH (10:50)
[2023-01-10 10:59] LABS: Bilirubin, Total 0.7 mg/dL (0.2-1.0)
[2023-01-10] MEDS: MORPHINE SULFATE INJ 2 MG/ml SYRG IV PRN (16:47)
[2023-01-10] MEDS: fentaNYL Drip 2500mCg/250mlNS 250 ML IV SCH (20:45)
[2023-01-10] MEDS: ATORVASTATIN 20 MG TAB PO SCH (20:59)
[2023-01-11] VITALS (89 sets, daily range): BP systolic 78–119; BP diastolic 30–54
[2023-01-11] MEDS: NOREPINEPHRINE 8 MG/250ML KIT 250 ML IV SCH (01:00)
[2023-01-11] MEDS: D5W/SOD CHL 0.45%/KCL 20MEQ 1,000 ML IV SCH (05:18)
[2023-01-11] MEDS: metroNIDAZOLE 500MG/100ML 100 ML IV SCH ×3 (05:18→21:35)
[2023-01-11 10:14] LABS: Basophils # (auto) 0.1 10 ^3/uL (0-0.2); Eosinophils # (auto) 0 10 ^3/uL (0-0.8); Eosinophils % (auto) 0.1 % (0.0-7.0); Hemoglobin 8.4 g/dL (13.5-17.5); Monocytes # (auto) 1.1 10 ^3/uL (0-1.3); Neutrophils # (auto) 12.5 10 ^3/uL (1.6-8.6); Nucleated Red Blood Cells % 0.1 %; Red Cell Distribution Width 12.9 % (11.8-14.3)
[2023-01-11 10:16] LABS: Basophils % (auto) 0.5 % (0.0-2.0); Hematocrit 25.2 % (41.0-53.0); Lymphocytes # (auto) 1.5 10 ^3/uL (0.4-5.4); Lymphocytes % (auto) 9.9 % (10.0-50.0); Mean Corpuscular Hemoglobin 32.4 pg (28.0-32.0); Mean Corpuscular Hgb Conc. 33.5 g/dL (32.0-36.0); Mean Corpuscular Volume 96.7 fL (80.0-100.0); Monocytes % (auto) 7.3 % (0.0-12.0); Neutrophils % (auto) 82.2 % (37.0-80.0); Red Blood Cells 2.61 10^6/uL (4.5-5.90); White Blood Cell 15.2 10^3/uL (4.4-10.8)
[2023-01-11] MEDS: D5W/ SOD CHL 0.9%/KCL 20MEQ 1,000 ML IV SCH ×2 (10:52→20:35)
[2023-01-11] MEDS: PANTOPRAZOLE 40 MG/10 ML VIAL INJ IV SCH (10:53)
[2023-01-11] MEDS: FINASTERIDE 5 MG TAB PO SCH (10:53)
[2023-01-11] MEDS: levoFLOXacin 500MG 100 ML IV SCH (10:53)
[2023-01-11] MEDS: ALLOPURINOL 100 MG TAB PO SCH (10:53)
[2023-01-11] MEDS: levETIRAcetam 500 MG TAB PO SCH ×2 (10:54→21:36)
[2023-01-11] MEDS: TOPIRAMATE 100 MG TAB PO SCH ×2 (10:54→21:36)
[2023-01-11] MEDS: GABAPENTIN 300 MG CAP PO SCH (10:54)
[2023-01-11] MEDS: APIXABAN 5 MG TAB PO SCH ×2 (10:54→21:38)
[2023-01-11] MEDS: CLOPIDOGREL BISULFATE 75 MG TAB PO SCH (10:54)
[2023-01-11 11:16] LABS: Anion Gap 4 (5-15); Blood Urea Nitrogen 17 mg/dL (7-18); Carbon Dioxide 21 mmol/L (21-32); Chloride 115 mmol/L (98-107); Glucose 167 mg/dL (74-106); Potassium 4.1 mmol/L (3.5-5.1); Sodium 140 mmol/L (136-145)
[2023-01-11 11:17] LABS: Alanine Aminotransferase 21 U/L (16-61); Albumin 1.8 g/dL (3.4-5.0); Alkaline Phosphatase 37 U/L (45-117); Aspartate Aminotransferase 22 U/L (15-37); BUN/Creatinine Ratio 18.7; Bilirubin, Total 0.2 mg/dL (0.2-1.0); Calcium 7.4 mg/dL (8.5-10.1); GFR African American 107 mL/min; GFR Non-African American 89 mL/min; Total Protein 4.7 g/dL (6.4-8.2)
[2023-01-11] MEDS ORDERED: SODIUM CHLORIDE 0.9% 500 ML IV ONE (12:45)
[2023-01-11] MEDS: ACETAMINOPHEN 325 MG TAB PO PRN ×2 (15:47→21:39)
[2023-01-11] MEDS: fentaNYL Drip 2500mCg/250mlNS 250 ML IV SCH (20:45)
[2023-01-11] MEDS: MIDAZOLAM DRIP 50 mg/50mL 50 ML IV SCH (20:48)
[2023-01-11] MEDS: ATORVASTATIN 20 MG TAB PO SCH (21:36)
[2023-01-12] VITALS (83 sets, daily range): BP systolic 83–167; BP diastolic 30–93
[2023-01-12] MEDS: NOREPINEPHRINE 8 MG/250ML KIT 250 ML IV SCH ×2 (01:00→12:50)
[2023-01-12] MEDS: D5W/ SOD CHL 0.9%/KCL 20MEQ 1,000 ML IV SCH ×3 (01:43→18:35)
[2023-01-12 04:00] LABS: Basophils # (auto) 0 10 ^3/uL (0-0.2); Basophils % (auto) 0.4 % (0.0-2.0); Eosinophils # (auto) 0.1 10 ^3/uL (0-0.8); Eosinophils % (auto) 0.7 % (0.0-7.0); Hematocrit 28.2 % (41.0-53.0); Hemoglobin 9.4 g/dL (13.5-17.5); Lymphocytes # (auto) 1.6 10 ^3/uL (0.4-5.4); Lymphocytes % (auto) 15.3 % (10.0-50.0); Mean Corpuscular Hemoglobin 33.1 pg (28.0-32.0); Mean Corpuscular Hgb Conc. 33.3 g/dL (32.0-36.0); Mean Corpuscular Volume 99.3 fL (80.0-100.0); Monocytes # (auto) 0.8 10 ^3/uL (0-1.3); Neutrophils # (auto) 7.8 10 ^3/uL (1.6-8.6); Neutrophils % (auto) 75.6 % (37.0-80.0); Nucleated Red Blood Cells % 0.1 %; Red Blood Cells 2.84 10^6/uL (4.5-5.90); Red Cell Distribution Width 13.1 % (11.8-14.3); White Blood Cell 10.3 10^3/uL (4.4-10.8)
[2023-01-12 04:05] LABS: Albumin 1.8 g/dL (3.4-5.0); Calcium 7.6 mg/dL (8.5-10.1)
[2023-01-12 04:14] LABS: BUN/Creatinine Ratio 11.5; Bilirubin, Total 0.4 mg/dL (0.2-1.0); Total Protein 5.5 g/dL (6.4-8.2)
[2023-01-12] MEDS: ACETAMINOPHEN 325 MG TAB PO PRN ×2 (04:35→12:50)
[2023-01-12] MEDS: metroNIDAZOLE 500MG/100ML 100 ML IV SCH ×3 (05:44→22:04)
[2023-01-12] MEDS: APIXABAN 5 MG TAB PO SCH (08:44)
[2023-01-12] MEDS: GABAPENTIN 300 MG CAP PO SCH (08:45)
[2023-01-12] MEDS: FINASTERIDE 5 MG TAB PO SCH (08:45)
[2023-01-12] MEDS: TOPIRAMATE 100 MG TAB PO SCH ×2 (08:45→22:04)
[2023-01-12] MEDS: CLOPIDOGREL BISULFATE 75 MG TAB PO SCH (08:45)
[2023-01-12] MEDS: levETIRAcetam 500 MG TAB PO SCH ×2 (08:45→22:04)
[2023-01-12] MEDS: PANTOPRAZOLE 40 MG/10 ML VIAL INJ IV SCH (08:45)
[2023-01-12] MEDS: levoFLOXacin 500MG 100 ML IV SCH (08:45)
[2023-01-12] MEDS: ALLOPURINOL 100 MG TAB PO SCH (08:45)
[2023-01-12] MEDS ORDERED: ACETAMINOPHEN 325 MG TAB PO PRN (12:45)
[2023-01-12] MEDS: ATORVASTATIN 20 MG TAB PO SCH (22:04)
[2023-01-13] MEDS: D5W/ SOD CHL 0.9%/KCL 20MEQ 1,000 ML IV SCH ×2 (00:41→10:18)
[2023-01-13] MEDS: metroNIDAZOLE 500MG/100ML 100 ML IV SCH ×3 (05:23→21:31)
[2023-01-13] MEDS: levoFLOXacin 500MG 100 ML IV SCH (10:18)
[2023-01-13] MEDS: FINASTERIDE 5 MG TAB PO SCH (10:19)
[2023-01-13] MEDS: levETIRAcetam 500 MG TAB PO SCH ×2 (10:21→21:31)
[2023-01-13] MEDS: ALLOPURINOL 100 MG TAB PO SCH (10:21)
[2023-01-13] MEDS: TOPIRAMATE 100 MG TAB PO SCH ×2 (10:22→21:31)
[2023-01-13] MEDS: ASPirin 81 mg TAB PO SCH (10:22)
[2023-01-13] MEDS: GABAPENTIN 300 MG CAP PO SCH (10:22)
[2023-01-13] MEDS: PANTOPRAZOLE 40 MG/10 ML VIAL INJ IV SCH (10:30)
[2023-01-13] MEDS: MORPHINE SULFATE INJ 2 MG/ml SYRG IV PRN ×2 (10:32→21:32)
[2023-01-13] MEDS ORDERED: VANCOMYCIN PER PHARMACY 0 MG IV SCH (11:45)
[2023-01-13] MEDS ORDERED: VANCOMYCIN 1GM/250ML 250 ML IV ONE (12:15)
[2023-01-13 14:16] LABS: Hematocrit 26.4 % (41.0-53.0); Hemoglobin 8.7 g/dL (13.5-17.5); Mean Corpuscular Hemoglobin 32.2 pg (28.0-32.0); Mean Corpuscular Hgb Conc. 32.8 g/dL (32.0-36.0); Mean Corpuscular Volume 98.2 fL (80.0-100.0); Red Blood Cells 2.69 10^6/uL (4.5-5.90); Red Cell Distribution Width 13.1 % (11.8-14.3); White Blood Cell 9.3 10^3/uL (4.4-10.8)
[2023-01-13 14:32] LABS: Band Neutrophils % (manual) 0; Basophils % (manual) 0 (0.0-2.0); Blast Cells 0; Metamyelocytes % 0; Myelocytes % 0; Promyelocytes % 0; Reactive Lymphocytes 0
[2023-01-13 14:38] LABS: Albumin 1.6 g/dL (3.4-5.0); BUN/Creatinine Ratio 8.6; Bilirubin, Total 0.3 mg/dL (0.2-1.0); Calcium 7.5 mg/dL (8.5-10.1)
[2023-01-13 15:07] LABS: Eosinophils % (manual) 1 (0-7); Lymphocytes % (manual) 17 (10.0-50.0); Monocytes % (manual) 7 (0-12)
[2023-01-13] MEDS: VANCOMYCIN 1GM/250ML 250 ML IV SCH (17:58)
[2023-01-13] MEDS: ATORVASTATIN 20 MG TAB PO SCH (21:31)
[2023-01-13 22:00] VITALS: BP 135/67
[2023-01-14] MEDS: VANCOMYCIN 1GM/250ML 250 ML IV SCH ×3 (00:10→15:59)
[2023-01-14 03:30] VITALS: BP 135/67
[2023-01-14 05:00] VITALS: BP 119/56
[2023-01-14] MEDS: metroNIDAZOLE 500MG/100ML 100 ML IV SCH ×3 (06:39→21:25)
[2023-01-14 07:42] LABS: Hemoglobin 9.8 g/dL (13.5-17.5); Mean Corpuscular Hemoglobin 32.3 pg (28.0-32.0); Mean Corpuscular Hgb Conc. 33.6 g/dL (32.0-36.0); Mean Corpuscular Volume 96.1 fL (80.0-100.0); Red Blood Cells 3.02 10^6/uL (4.5-5.90); Red Cell Distribution Width 13.3 % (11.8-14.3); White Blood Cell 14.1 10^3/uL (4.4-10.8)
[2023-01-14 08:25] LABS: Basophils % (manual) 0 (0.0-2.0); Blast Cells 0; Promyelocytes % 0; Reactive Lymphocytes 0
[2023-01-14 08:32] LABS: Potassium 4.4 mmol/L (3.5-5.1)
[2023-01-14 08:37] LABS: Albumin 1.7 g/dL (3.4-5.0); BUN/Creatinine Ratio 11.3; Bilirubin, Total 0.4 mg/dL (0.2-1.0); Calcium 7.6 mg/dL (8.5-10.1); Total Protein 4.6 g/dL (6.4-8.2)
[2023-01-14 08:58] VITALS: BP 129/54
[2023-01-14 09:23] LABS: Band Neutrophils % (manual) 23; Eosinophils % (manual) 2 (0-7); Lymphocytes % (manual) 12 (10.0-50.0); Metamyelocytes % 1; Monocytes % (manual) 6 (0-12); Myelocytes % 1
[2023-01-14] MEDS: GABAPENTIN 300 MG CAP PO SCH (09:24)
[2023-01-14] MEDS: PANTOPRAZOLE 40 MG/10 ML VIAL INJ IV SCH (09:24)
[2023-01-14] MEDS: levETIRAcetam 500 MG TAB PO SCH ×2 (09:25→21:26)
[2023-01-14] MEDS: FINASTERIDE 5 MG TAB PO SCH (09:25)
[2023-01-14] MEDS: ALLOPURINOL 100 MG TAB PO SCH (09:25)
[2023-01-14] MEDS: TOPIRAMATE 100 MG TAB PO SCH ×2 (09:25→21:26)
[2023-01-14] MEDS: ASPirin 81 mg TAB PO SCH (09:25)
[2023-01-14] MEDS: levoFLOXacin 500MG 100 ML IV SCH (10:15)
[2023-01-14 13:00] VITALS: BP 130/70
[2023-01-14] MEDS ORDERED: IOHEXOL 350 MG/ML 100ML IJ ONE (13:00)
[2023-01-14 17:00] VITALS: BP 125/63
[2023-01-14] MEDS: ATORVASTATIN 20 MG TAB PO SCH (21:26)
[2023-01-14] MEDS: HYDROcodone-ACET 5/325MG TAB PO PRN (21:26)
[2023-01-14 22:00] VITALS: BP 145/50
[2023-01-15] MEDS: VANCOMYCIN 1GM/250ML 250 ML IV SCH ×3 (00:15→15:30)
[2023-01-15 05:00] VITALS: BP 138/58
[2023-01-15] MEDS: metroNIDAZOLE 500MG/100ML 100 ML IV SCH ×3 (05:27→21:43)
[2023-01-15 08:33] VITALS: BP 124/51
[2023-01-15 08:41] LABS: Hematocrit 26.3 % (41.0-53.0); Hemoglobin 8.9 g/dL (13.5-17.5); Mean Corpuscular Hemoglobin 32.3 pg (28.0-32.0); Mean Corpuscular Hgb Conc. 33.7 g/dL (32.0-36.0); Mean Corpuscular Volume 95.9 fL (80.0-100.0); Red Blood Cells 2.74 10^6/uL (4.5-5.90); Red Cell Distribution Width 13.3 % (11.8-14.3); White Blood Cell 12.2 10^3/uL (4.4-10.8)
[2023-01-15 08:45] LABS: Basophils % (manual) 0 (0.0-2.0); Blast Cells 0; Metamyelocytes % 0; Myelocytes % 0; Promyelocytes % 0; Reactive Lymphocytes 0
[2023-01-15 09:00] LABS: BUN/Creatinine Ratio 14.1 (10.0-20.0); Potassium 4.1 mmol/L (3.5-5.1)
[2023-01-15 09:37] LABS: Band Neutrophils % (manual) 7; Eosinophils % (manual) 2 (0-7); Lymphocytes % (manual) 15 (10.0-50.0); Monocytes % (manual) 5 (0-12)
[2023-01-15] MEDS ORDERED: PATIENTS OWN MEDICATION (ELIQUIS 5 MG) PO SCH (10:00)
[2023-01-15] MEDS ORDERED: ENOXAPARIN SOD 30 MG/0.3 ML SYRINGE SC SCH ×2 (10:00)
[2023-01-15] MEDS: levoFLOXacin 500MG 100 ML IV SCH (10:44)
[2023-01-15] MEDS: PANTOPRAZOLE 40 MG/10 ML VIAL INJ IV SCH (10:44)
[2023-01-15] MEDS: APIXABAN 5 MG TAB PO SCH ×2 (10:45→21:44)
[2023-01-15] MEDS: FINASTERIDE 5 MG TAB PO SCH (10:45)
[2023-01-15] MEDS: CLOPIDOGREL BISULFATE 75 MG TAB PO SCH (10:45)
[2023-01-15] MEDS: GABAPENTIN 300 MG CAP PO SCH (10:45)
[2023-01-15] MEDS: ASPirin 81 mg TAB PO SCH (10:46)
[2023-01-15] MEDS: levETIRAcetam 500 MG TAB PO SCH ×2 (10:46→21:43)
[2023-01-15] MEDS: TOPIRAMATE 100 MG TAB PO SCH ×2 (10:46→21:44)
[2023-01-15] MEDS: ALLOPURINOL 100 MG TAB PO SCH (10:47)
[2023-01-15 12:33] LABS: INR 1.06 (0.9-1.15); Partial Thromboplastin Time 31.6 sec (24.6-33.4)
[2023-01-15 13:00] VITALS: BP 133/59
[2023-01-15] MEDS ORDERED: LIDOCAINE 1% (LOCAL ANESTH.) PF 5ml SDV ID ONE (16:15)
[2023-01-15 16:37] VITALS: BP 118/52
[2023-01-15] MEDS: HYDROcodone-ACET 5/325MG TAB PO PRN (21:43)
[2023-01-15] MEDS: ATORVASTATIN 20 MG TAB PO SCH (21:44)
[2023-01-15] MEDS: SODIUM CHLOR 0.9% PF (SALINE LOCK) 10ML VIAL/SYR IV SCH (21:45)
[2023-01-15 22:00] VITALS: BP 125/60
[2023-01-16] MEDS: VANCOMYCIN 1GM/250ML 250 ML IV SCH ×3 (00:11→16:21)
[2023-01-16 05:00] VITALS: BP 119/53
[2023-01-16] MEDS: metroNIDAZOLE 500MG/100ML 100 ML IV SCH ×3 (05:43→22:25)
[2023-01-16 06:39] LABS: Hematocrit 26.6 % (41.0-53.0); Hemoglobin 8.9 g/dL (13.5-17.5); Mean Corpuscular Hemoglobin 32.4 pg (28.0-32.0); Mean Corpuscular Hgb Conc. 33.5 g/dL (32.0-36.0); Mean Corpuscular Volume 96.7 fL (80.0-100.0); Red Blood Cells 2.75 10^6/uL (4.5-5.90); Red Cell Distribution Width 13.2 % (11.8-14.3); White Blood Cell 12.6 10^3/uL (4.4-10.8)
[2023-01-16 06:47] LABS: Basophils % (manual) 0 (0.0-2.0); Blast Cells 0; Metamyelocytes % 0; Myelocytes % 0; Promyelocytes % 0; Reactive Lymphocytes 0
[2023-01-16 06:57] LABS: Potassium 3.9 mmol/L (3.5-5.1)
[2023-01-16 08:04] LABS: Band Neutrophils % (manual) 3; Eosinophils % (manual) 3 (0-7); Lymphocytes % (manual) 11 (10.0-50.0); Monocytes % (manual) 10 (0-12)
[2023-01-16 09:19] VITALS: BP 133/60
[2023-01-16] MEDS: FINASTERIDE 5 MG TAB PO SCH (11:06)
[2023-01-16] MEDS: levETIRAcetam 500 MG TAB PO SCH ×2 (11:06→22:26)
[2023-01-16] MEDS: ALLOPURINOL 100 MG TAB PO SCH (11:07)
[2023-01-16] MEDS: ASPirin 81 mg TAB PO SCH (11:08)
[2023-01-16] MEDS: TOPIRAMATE 100 MG TAB PO SCH ×2 (11:09→22:26)
[2023-01-16] MEDS: GABAPENTIN 300 MG CAP PO SCH (11:09)
[2023-01-16] MEDS: CLOPIDOGREL BISULFATE 75 MG TAB PO SCH (11:09)
[2023-01-16] MEDS: SODIUM CHLOR 0.9% PF (SALINE LOCK) 10ML VIAL/SYR IV SCH ×2 (11:10→22:25)
[2023-01-16] MEDS: APIXABAN 5 MG TAB PO SCH ×2 (11:10→22:26)
[2023-01-16] MEDS: PANTOPRAZOLE 40 MG/10 ML VIAL INJ IV SCH (11:11)
[2023-01-16] MEDS: HYDROcodone-ACET 5/325MG TAB PO PRN (12:07)
[2023-01-16 12:55] VITALS: BP 133/71
[2023-01-16] MEDS: levoFLOXacin 500MG 100 ML IV SCH (14:41)
[2023-01-16 16:58] VITALS: BP 130/52
[2023-01-16 22:00] VITALS: BP 148/61
[2023-01-16] MEDS: ATORVASTATIN 20 MG TAB PO SCH (22:26)
[2023-01-17] MEDS: VANCOMYCIN 1GM/250ML 250 ML IV SCH ×2 (00:49→08:00)
[2023-01-17 05:00] VITALS: BP 149/60
[2023-01-17] MEDS: metroNIDAZOLE 500MG/100ML 100 ML IV SCH ×3 (05:45→21:08)
[2023-01-17 07:01] LABS: Basophils # (auto) 0.2 10 ^3/uL (0-0.2); Basophils % (auto) 1.2 % (0.0-2.0); Eosinophils # (auto) 0.2 10 ^3/uL (0-0.8); Eosinophils % (auto) 1.8 % (0.0-7.0); Hematocrit 26.6 % (41.0-53.0); Hemoglobin 9.1 g/dL (13.5-17.5); Lymphocytes # (auto) 1.5 10 ^3/uL (0.4-5.4); Lymphocytes % (auto) 10.9 % (10.0-50.0); Mean Corpuscular Hemoglobin 32.1 pg (28.0-32.0); Mean Corpuscular Hgb Conc. 34.1 g/dL (32.0-36.0); Mean Corpuscular Volume 94.2 fL (80.0-100.0); Monocytes # (auto) 1.2 10 ^3/uL (0-1.3); Monocytes % (auto) 8.4 % (0.0-12.0); Neutrophils # (auto) 10.9 10 ^3/uL (1.6-8.6); Neutrophils % (auto) 77.7 % (37.0-80.0); Red Blood Cells 2.83 10^6/uL (4.5-5.90); Red Cell Distribution Width 13.4 % (11.8-14.3)
[2023-01-17 08:13] LABS: Potassium 4.1 mmol/L (3.5-5.1)
[2023-01-17 08:16] LABS: BUN/Creatinine Ratio 11.8 (10.0-20.0); Calcium 7.7 mg/dL (8.5-10.1)
[2023-01-17 08:30] VITALS: BP 121/45
[2023-01-17] MEDS: levoFLOXacin 500MG 100 ML IV SCH (09:46)
[2023-01-17] MEDS: ASPirin 81 mg TAB PO SCH (09:47)
[2023-01-17] MEDS: APIXABAN 5 MG TAB PO SCH ×2 (09:47→21:09)
[2023-01-17] MEDS: PANTOPRAZOLE 40 MG/10 ML VIAL INJ IV SCH (09:47)
[2023-01-17] MEDS: TOPIRAMATE 100 MG TAB PO SCH ×2 (09:47→21:09)
[2023-01-17] MEDS: CLOPIDOGREL BISULFATE 75 MG TAB PO SCH (09:47)
[2023-01-17] MEDS: ALLOPURINOL 100 MG TAB PO SCH (09:48)
[2023-01-17] MEDS: GABAPENTIN 300 MG CAP PO SCH (09:48)
[2023-01-17] MEDS: FINASTERIDE 5 MG TAB PO SCH (09:48)
[2023-01-17] MEDS: SODIUM CHLOR 0.9% PF (SALINE LOCK) 10ML VIAL/SYR IV SCH ×2 (09:48→21:08)
[2023-01-17] MEDS: levETIRAcetam 500 MG TAB PO SCH ×2 (09:48→21:09)
[2023-01-17 13:00] VITALS: BP 124/63
[2023-01-17 16:48] VITALS: BP 134/62
[2023-01-17] MEDS: ATORVASTATIN 20 MG TAB PO SCH (21:09)
[2023-01-17 22:00] VITALS: BP 131/51
[2023-01-18 04:47] VITALS: BP 142/58
[2023-01-18] MEDS: metroNIDAZOLE 500MG/100ML 100 ML IV SCH ×3 (06:00→22:18)
[2023-01-18 09:00] VITALS: BP 127/66
[2023-01-18] MEDS ORDERED: VANCOMYCIN 1GM/250ML 250 ML IV ONE (09:15)
[2023-01-18] MEDS: TOPIRAMATE 100 MG TAB PO SCH ×2 (09:27→22:09)
[2023-01-18] MEDS: ALLOPURINOL 100 MG TAB PO SCH (09:27)
[2023-01-18] MEDS: ASPirin 81 mg TAB PO SCH (09:27)
[2023-01-18] MEDS: PANTOPRAZOLE 40 MG/10 ML VIAL INJ IV SCH (09:27)
[2023-01-18] MEDS: GABAPENTIN 300 MG CAP PO SCH (09:27)
[2023-01-18] MEDS: FINASTERIDE 5 MG TAB PO SCH (09:28)
[2023-01-18] MEDS: CLOPIDOGREL BISULFATE 75 MG TAB PO SCH (09:28)
[2023-01-18] MEDS: levETIRAcetam 500 MG TAB PO SCH ×2 (09:28→22:09)
[2023-01-18] MEDS: APIXABAN 5 MG TAB PO SCH ×2 (09:28→22:09)
[2023-01-18] MEDS: SODIUM CHLOR 0.9% PF (SALINE LOCK) 10ML VIAL/SYR IV SCH ×2 (09:39→22:09)
[2023-01-18] MEDS: levoFLOXacin 500MG 100 ML IV SCH (10:35)
[2023-01-18] MEDS ORDERED: METR500T PO (11:02)
[2023-01-18] MEDS ORDERED: PANT40T PO (11:02)
[2023-01-18] MEDS ORDERED: LEVO500T31 PO (11:02)
[2023-01-18 13:00] VITALS: BP 128/66
[2023-01-18 14:59] VITALS: BP 127/60
[2023-01-18 17:00] VITALS: BP 130/64
[2023-01-18] MEDS: VANCOMYCIN 1GM/250ML 250 ML IV SCH (21:11)
[2023-01-18 22:00] VITALS: BP 111/51
[2023-01-18] MEDS: ATORVASTATIN 20 MG TAB PO SCH (22:09)
[2023-01-19 05:00] VITALS: BP 101/59
[2023-01-19] MEDS: metroNIDAZOLE 500MG/100ML 100 ML IV SCH (05:25)
[2023-01-19 08:22] VITALS: BP 118/55
[2023-01-19] MEDS: VANCOMYCIN 1GM/250ML 250 ML IV SCH (09:02)
[2023-01-19] MEDS: levoFLOXacin 500MG 100 ML IV SCH (10:43)
[2023-01-19] MEDS: CLOPIDOGREL BISULFATE 75 MG TAB PO SCH (10:43)
[2023-01-19] MEDS: PANTOPRAZOLE 40 MG/10 ML VIAL INJ IV SCH (10:43)
[2023-01-19] MEDS: ALLOPURINOL 100 MG TAB PO SCH (10:43)
[2023-01-19] MEDS: levETIRAcetam 500 MG TAB PO SCH (10:43)
[2023-01-19] MEDS: ASPirin 81 mg TAB PO SCH (10:44)
[2023-01-19] MEDS: GABAPENTIN 300 MG CAP PO SCH (10:44)
[2023-01-19] MEDS: FINASTERIDE 5 MG TAB PO SCH (10:44)
[2023-01-19] MEDS: TOPIRAMATE 100 MG TAB PO SCH (10:44)
[2023-01-19] MEDS: APIXABAN 5 MG TAB PO SCH (10:44)
[2023-01-19] MEDS: SODIUM CHLOR 0.9% PF (SALINE LOCK) 10ML VIAL/SYR IV SCH (10:45)
[2023-01-19 13:46] VITALS: BP 124/59
== END 2023-01-19 13:15 | DRG 710 ==
LOC: ER 11:34 → OVERFLOW 21:14 → ICU WEST 01-09 09:46 → WEST WING 01-09 11:27 → ICU WEST 01-09 20:50 → TELE-WESTW 01-12 22:31
PROVIDERS: ADMIT Nurse Practitioner; ATTEND Family Medicine
PROC: 0FN44ZZ Release Gallbladder, Percutaneous Endoscopic Approach (ICD-10-PCS; 2023-01-09)
PROC: 0FT44ZZ Resection of Gallbladder, Percutaneous Endoscopic Approach (ICD-10-PCS; 2023-01-09)
PROC: 0BH17EZ Insertion of Endotracheal Airway into Trachea, Via Natural or Artificial Opening (ICD-10-PCS; 2023-01-09)
PROC: 5A1935Z Respiratory Ventilation, Less than 24 Consecutive Hours (ICD-10-PCS; principal; 2023-01-09 17:31)
PROC: 5A09357 Assistance with Respiratory Ventilation, Less than 24 Consecutive Hours, Continuous Positive Airway Pressure (ICD-10-PCS; 2023-01-13)
PROC: 02HV33Z Insertion of Infusion Device into Superior Vena Cava, Percutaneous Approach (ICD-10-PCS; 2023-01-15)
PROC: B548ZZA Ultrasonography of Superior Vena Cava, Guidance (ICD-10-PCS; 2023-01-15)
DX: A41.9 Sepsis, unspecified organism (principal); R65.21 Severe sepsis with septic shock; J96.01 Acute respiratory failure with hypoxia; I11.0 Hypertensive heart disease with heart failure; J18.9 Pneumonia, unspecified organism; K82.A1 Gangrene of gallbladder in cholecystitis; I50.9 Heart failure, unspecified; K81.0 Acute cholecystitis; E03.9 Hypothyroidism, unspecified; E66.01 Morbid (severe) obesity due to excess calories; G40.909 Epilepsy, unspecified, not intractable, without status epilepticus; K21.9 Gastro-esophageal reflux disease without esophagitis; R00.0 Tachycardia, unspecified; E78.5 Hyperlipidemia, unspecified; Z20.822 Contact with and (suspected) exposure to COVID-19; K66.0 Peritoneal adhesions (postprocedural) (postinfection); M10.9 Gout, unspecified; Z68.42 Body mass index [BMI] 45.0-49.9, adult; F17.200 Nicotine dependence, unspecified, uncomplicated; I25.10 Atherosclerotic heart disease of native coronary artery without angina pectoris; I25.2 Old myocardial infarction; Z81.8 Family history of other mental and behavioral disorders; Z88.0 Allergy status to penicillin; Z90.49 Acquired absence of other specified parts of digestive tract; Z95.1 Presence of aortocoronary bypass graft; Z95.5 Presence of coronary angioplasty implant and graft; Z88.5 Allergy status to narcotic agent
CPT/HCPCS: 36415; 36569; 36600; 71045; 71260; 74177; 76705; 80048; 80053; 80202; 81001; 82150; 82247; 82565; 82805; 83605; 83690; 83735; 83880; 84484; 85007; 85014; 85018; 85025; 85027; 85610; 85730; 86850; 86900; 86901; 87040; 87070; 87075; 87077; 87081; 87086; 87186; 87205; 87426; 93306; 94003; 94640; 94660; 97110; 97116; 97163; 97530; C9113; G0378; J0696; J1100; J1885; J1956; J2001; J2250; J2405; J2704; J3490

== ENCOUNTER 2023-08-16 16:51 | Inpatient (IN) | payer MEDICARE, MEDICAID ==
[~2023-08-16] VITALS: Ht 167.6 cm; Wt 144.0 kg
[~2023-08-16 16:51] MED LIST changes: -ASPI81CH43 PO; -CHOL20007 OR; +FOLI-119 PO; -FOLI1TAB6 PO; -FURO20TA3 PO; +GABA-1250 PO; -GABA300C10 PO; -IBUP600T27 PO; -LEVE500T32 PO; +LEVE500T40 PO; +LEVO500T31 PO; +METR500T PO
[2023-08-16] MEDS ORDERED: DICYCLOMINE HCL 10 MG CAP PO ONE (18:00)
[2023-08-16] MEDS ORDERED: ONDANSETRON ODT 4 MG TAB PO ONE (18:00)
[2023-08-16 18:26] LABS: Basophils # (auto) 0 10 ^3/uL (0-0.2); Basophils % (auto) 0.4 % (0.0-2.0); Eosinophils # (auto) 0 10 ^3/uL (0-0.8); Eosinophils % (auto) 0.4 % (0.0-7.0); Hematocrit 39.7 % (41.0-53.0); Hemoglobin 12.9 g/dL (13.5-17.5); Lymphocytes # (auto) 0.7 10 ^3/uL (0.4-5.4); Mean Corpuscular Hemoglobin 30.6 pg (28.0-32.0); Mean Corpuscular Hgb Conc. 32.6 g/dL (32.0-36.0); Mean Corpuscular Volume 93.7 fL (80.0-100.0); Monocytes # (auto) 0.6 10 ^3/uL (0-1.3); Monocytes % (auto) 6.8 % (0.0-12.0); Neutrophils # (auto) 6.9 10 ^3/uL (1.6-8.6); Neutrophils % (auto) 83.4 % (37.0-80.0); Red Blood Cells 4.23 10^6/uL (4.5-5.90); Red Cell Distribution Width 14.2 % (11.8-14.3); White Blood Cell 8.3 10^3/uL (4.4-10.8)
[2023-08-16 18:50] LABS: Alanine Aminotransferase 367 U/L (7-40); Alkaline Phosphatase 140 U/L (46-116); Anion Gap 8 (5-15); Aspartate Aminotransferase 663 U/L (13-40); BUN/Creatinine Ratio 15.7 (10.0-20.0); Bilirubin, Total 1.3 mg/dL (0.2-1.0); Blood Urea Nitrogen 19 mg/dL (9-23); Calcium 8.6 mg/dL (8.7-10.4); Carbon Dioxide 20 mmol/L (20-30); Chloride 111 mmol/L (98-107); Glucose 155 mg/dL (74-106); Magnesium 1.9 mg/dL (1.6-2.6); Potassium 4.4 mmol/L (3.5-5.1); Sodium 139 mmol/L (136-145); Total Protein 7.1 g/dL (5.7-8.2)
[2023-08-16 18:58] LABS: Lipase 782 U/L (12-53)
[2023-08-16 20:21] LABS: Urine Bacteria MANY /hpf (None Seen); Urine Blood TRACE /uL (Negative); Urine Clarity HAZY (Clear); Urine Color Yellow (Yellow); Urine Hyaline Cast MANY /lpf (0 - 2); Urine Protein, UAD TRACE (Negative); Urine Specific Gravity 1.024 (1.001-1.035); Urine WBC 12 /hpf (0 - 3); Urine pH 6.5 (5.0-8.0)
[2023-08-16] MEDS ORDERED: PIPERACILLIN-TAZOB 3.375GM 100 ML IV ONE (21:45)
[2023-08-16] MEDS ORDERED: SODIUM CHLORIDE 0.9% 1,000 ML IV ONE (22:00)
[2023-08-17] MEDS ORDERED: ONDANSETRON HCL 4 MG/2 ML VIAL IV PRN (00:15)
[2023-08-17] MEDS ORDERED: MORPHINE SULFATE INJ 2 MG/ml SYRG IV PRN (00:15)
[2023-08-17] MEDS ORDERED: IBUPROFEN 600 MG TAB PO PRN (00:15)
[2023-08-17] MEDS: SODIUM CHLORIDE 0.9% 1,000 ML IV SCH ×2 (00:15→21:28)
[2023-08-17] MEDS: levoFLOXacin 500MG 100 ML IV SCH ×2 (00:51→21:29)
[2023-08-17] MEDS ORDERED: levETIRAcetam 500 MG/5ML INJ IV ONE ×2 (05:17→21:08)
[2023-08-17] MEDS: FAMOTIDINE (10MG/ML) 2ML VL IV SCH ×2 (13:29→22:00)
[2023-08-17] MEDS: ASPirin 81 mg TAB PO SCH (13:29)
[2023-08-17 18:02] VITALS: BP 114/54; PULSE 66; RESP 16; TEMP 98.4; O2SAT 97
[2023-08-17 18:37] VITALS: O2SAT 97
[2023-08-17 20:00] VITALS: PULSE 75; RESP 18; TEMP 36.9; O2SAT 98
[2023-08-17 22:00] VITALS: BP_SYST 109; BP_SYST 114; BP_DIAS 57; BP_DIAS 61; PULSE 71; PULSE 98; RESP 20; RESP 22; TEMP 98.6; TEMP 98.7; O2SAT 95
[2023-08-17 22:47] VITALS: BP 114/61; PULSE 71; RESP 20; TEMP 98.6; O2SAT 95
[2023-08-18] VITALS (7 sets, daily range): BP systolic 106–148; BP diastolic 48–63; PULSE 62–75; RESP 14–20; TEMP 97.8–99; O2SAT 91–98
[2023-08-18 07:02] LABS: Alanine Aminotransferase 452 U/L (7-40); Alkaline Phosphatase 160 U/L (46-116); Anion Gap 8 (5-15); BUN/Creatinine Ratio 9.3 (10.0-20.0); Blood Urea Nitrogen 10 mg/dL (9-23); Carbon Dioxide 20 mmol/L (20-30); Chloride 111 mmol/L (98-107); Glucose 84 mg/dL (74-106); Potassium 4.1 mmol/L (3.5-5.1); Sodium 139 mmol/L (136-145)
[2023-08-18 07:03] LABS: Aspartate Aminotransferase 424 U/L (13-40); Bilirubin, Total 0.9 mg/dL (0.2-1.0); Total Protein 7.3 g/dL (5.7-8.2)
[2023-08-18 07:34] LABS: Basophils # (auto) 0 10 ^3/uL (0-0.2); Basophils % (auto) 0.4 % (0.0-2.0); Eosinophils # (auto) 0.2 10 ^3/uL (0-0.8); Eosinophils % (auto) 2.6 % (0.0-7.0); Hematocrit 38.6 % (41.0-53.0); Hemoglobin 12.9 g/dL (13.5-17.5); Lymphocytes # (auto) 1.5 10 ^3/uL (0.4-5.4); Lymphocytes % (auto) 22.7 % (10.0-50.0); Mean Corpuscular Hemoglobin 31.1 pg (28.0-32.0); Mean Corpuscular Hgb Conc. 33.5 g/dL (32.0-36.0); Mean Corpuscular Volume 92.6 fL (80.0-100.0); Monocytes # (auto) 0.4 10 ^3/uL (0-1.3); Monocytes % (auto) 5.6 % (0.0-12.0); Neutrophils # (auto) 4.6 10 ^3/uL (1.6-8.6); Neutrophils % (auto) 68.7 % (37.0-80.0); Red Blood Cells 4.17 10^6/uL (4.5-5.90); Red Cell Distribution Width 14.1 % (11.8-14.3); White Blood Cell 6.7 10^3/uL (4.4-10.8)
[2023-08-18] MEDS: ASPirin 81 mg TAB PO SCH (09:21)
[2023-08-18] MEDS: FAMOTIDINE (10MG/ML) 2ML VL IV SCH ×2 (09:21→21:55)
[2023-08-18] MEDS: SODIUM CHLORIDE 0.9% 1,000 ML IV SCH (09:35)
[2023-08-18] MEDS: levoFLOXacin 500MG 100 ML IV SCH (22:28)
[2023-08-19] MEDS: SODIUM CHLORIDE 0.9% 1,000 ML IV SCH (02:15)
[2023-08-19 05:00] VITALS: BP 151/61; PULSE 72; RESP 16; TEMP 98.2; O2SAT 96
[2023-08-19 08:00] VITALS: PULSE 69; RESP 18; O2SAT 97
[2023-08-19 08:39] VITALS: BP 145/67; PULSE 69; RESP 18; TEMP 97.6; O2SAT 97
[2023-08-19] MEDS: ASPirin 81 mg TAB PO SCH (09:23)
[2023-08-19] MEDS: FAMOTIDINE (10MG/ML) 2ML VL IV SCH ×2 (09:23→21:04)
[2023-08-19] MEDS: GABAPENTIN 300 MG CAP PO SCH ×2 (14:50→21:07)
[2023-08-19 19:48] VITALS: PULSE 75; O2SAT 98
[2023-08-19] MEDS: levoFLOXacin 500MG 100 ML IV SCH (21:04)
[2023-08-19] MEDS: APIXABAN 5 MG TAB PO SCH (21:07)
[2023-08-19] MEDS: PANTOPRAZOLE 40 MG TAB PO SCH (21:07)
[2023-08-19] MEDS: TOPIRAMATE 100 MG TAB PO SCH (21:08)
[2023-08-19 22:00] VITALS: BP 144/85; PULSE 76; RESP 24; TEMP 98.4; O2SAT 98
[2023-08-19] MEDS ORDERED: ATORVASTATIN 20 MG TAB PO SCH (22:00)
[2023-08-20] VITALS (7 sets, daily range): BP systolic 106–136; BP diastolic 53–76; PULSE 69–76; RESP 17–19; TEMP 97.9–99.1; O2SAT 94–98
[2023-08-20] MEDS: SODIUM CHLORIDE 0.9% 1,000 ML IV SCH ×3 (02:59→21:12)
[2023-08-20] MEDS: GABAPENTIN 300 MG CAP PO SCH ×3 (05:15→21:14)
[2023-08-20] MEDS: APIXABAN 5 MG TAB PO SCH ×2 (09:56→21:13)
[2023-08-20] MEDS: PANTOPRAZOLE 40 MG TAB PO SCH ×2 (09:56→21:14)
[2023-08-20] MEDS: LORATADINE 10 MG TAB PO SCH (09:56)
[2023-08-20] MEDS: FINASTERIDE 5 MG TAB PO SCH (09:56)
[2023-08-20] MEDS: TOPIRAMATE 100 MG TAB PO SCH ×2 (09:56→21:14)
[2023-08-20] MEDS: CLOPIDOGREL BISULFATE 75 MG TAB PO SCH (09:56)
[2023-08-20] MEDS: ASPirin 81 mg TAB PO SCH (09:56)
[2023-08-20] MEDS: METOPROLOL SUCCINATE XL 50 MG TAB PO SCH (09:56)
[2023-08-20] MEDS: ALLOPURINOL 100 MG TAB PO SCH (09:57)
[2023-08-20] MEDS: CYANOCOBALAMIN 500 MCG TAB PO SCH (09:57)
[2023-08-20 18:19] LABS: COVID19 ANTIGEN SOFIA FIA NEGATIVE (NEGATIVE)
[2023-08-20] MEDS: levoFLOXacin 500MG 100 ML IV SCH (21:27)
[2023-08-21] VITALS (7 sets, daily range): BP systolic 107–134; BP diastolic 56–68; PULSE 63–82; RESP 18–22; TEMP 97.3–98.5; O2SAT 93–99
[2023-08-21] MEDS: GABAPENTIN 300 MG CAP PO SCH ×3 (05:09→22:54)
[2023-08-21 06:07] LABS: Alanine Aminotransferase 128 U/L (7-40); Albumin 3.6 g/dL (3.2-4.8); Alkaline Phosphatase 104 U/L (46-116); Anion Gap 7 (5-15); Aspartate Aminotransferase 51 U/L (13-40); BUN/Creatinine Ratio 10.1 (10.0-20.0); Blood Urea Nitrogen 11 mg/dL (9-23); Carbon Dioxide 21 mmol/L (20-30); Chloride 111 mmol/L (98-107); Glucose 126 mg/dL (74-106); Lipase 67 U/L (12-53); Potassium 3.9 mmol/L (3.5-5.1); Sodium 139 mmol/L (136-145)
[2023-08-21 06:08] LABS: Bilirubin, Total 0.4 mg/dL (0.2-1.0); Total Protein 6.6 g/dL (5.7-8.2)
[2023-08-21] MEDS: APIXABAN 5 MG TAB PO SCH ×2 (09:27→22:55)
[2023-08-21] MEDS: TOPIRAMATE 100 MG TAB PO SCH ×2 (09:27→22:54)
[2023-08-21] MEDS: CYANOCOBALAMIN 500 MCG TAB PO SCH (09:27)
[2023-08-21] MEDS: ALLOPURINOL 100 MG TAB PO SCH (09:27)
[2023-08-21] MEDS: CLOPIDOGREL BISULFATE 75 MG TAB PO SCH (09:27)
[2023-08-21] MEDS: PANTOPRAZOLE 40 MG TAB PO SCH ×2 (09:27→22:55)
[2023-08-21] MEDS: METOPROLOL SUCCINATE XL 50 MG TAB PO SCH (09:28)
[2023-08-21] MEDS: ASPirin 81 mg TAB PO SCH (09:28)
[2023-08-21] MEDS: LORATADINE 10 MG TAB PO SCH (09:28)
[2023-08-21] MEDS: FINASTERIDE 5 MG TAB PO SCH (09:28)
[2023-08-21] MEDS: DOCUSATE SOD 100 MG CAP PO PRN (22:54)
[2023-08-21] MEDS: levoFLOXacin 500MG 100 ML IV SCH (23:53)
[2023-08-22] VITALS (8 sets, daily range): BP systolic 108–134; BP diastolic 52–76; PULSE 52–76; RESP 17–20; TEMP 79.9–97.8; O2SAT 94–96
[2023-08-22] MEDS: GABAPENTIN 300 MG CAP PO SCH ×3 (06:50→23:05)
[2023-08-22] MEDS: SODIUM CHLORIDE 0.9% 1,000 ML IV SCH ×2 (06:53→13:35)
[2023-08-22 08:51] LABS: Hepatitis B Core Total AB Negative (Negative)
[2023-08-22] MEDS: ASPirin 81 mg TAB PO SCH (09:58)
[2023-08-22] MEDS: CYANOCOBALAMIN 500 MCG TAB PO SCH (09:58)
[2023-08-22] MEDS: APIXABAN 5 MG TAB PO SCH ×2 (09:58→23:05)
[2023-08-22] MEDS: METOPROLOL SUCCINATE XL 50 MG TAB PO SCH (09:58)
[2023-08-22] MEDS: DOCUSATE SOD 100 MG CAP PO PRN ×2 (09:58→23:05)
[2023-08-22] MEDS: ALLOPURINOL 100 MG TAB PO SCH (09:58)
[2023-08-22] MEDS: PANTOPRAZOLE 40 MG TAB PO SCH ×2 (09:58→23:05)
[2023-08-22] MEDS: LORATADINE 10 MG TAB PO SCH (09:58)
[2023-08-22] MEDS: CLOPIDOGREL BISULFATE 75 MG TAB PO SCH (09:58)
[2023-08-22] MEDS: TOPIRAMATE 100 MG TAB PO SCH ×2 (09:58→23:05)
[2023-08-22] MEDS: FINASTERIDE 5 MG TAB PO SCH (09:58)
[2023-08-22 11:17] LABS: Hepatitis A Total Antibody Positive (Negative); Hepatitis B Surface Antibody Negative (Negative); Hepatitis B Surface Antigen Negative (Negative); Hepatitis C Antibody Negative (Negative)
[2023-08-22] MEDS: levoFLOXacin 500MG 100 ML IV SCH (23:06)
[2023-08-23] VITALS (8 sets, daily range): BP systolic 100–127; BP diastolic 51–72; PULSE 59–82; RESP 16–21; TEMP 97.8–98.8; O2SAT 91–99
[2023-08-23] MEDS: GABAPENTIN 300 MG CAP PO SCH ×3 (06:22→22:15)
[2023-08-23] MEDS: CYANOCOBALAMIN 500 MCG TAB PO SCH (10:00)
[2023-08-23] MEDS: APIXABAN 5 MG TAB PO SCH ×2 (11:06→22:15)
[2023-08-23] MEDS: ASPirin 81 mg TAB PO SCH (11:06)
[2023-08-23] MEDS: PANTOPRAZOLE 40 MG TAB PO SCH ×2 (11:06→22:15)
[2023-08-23] MEDS: FINASTERIDE 5 MG TAB PO SCH (11:06)
[2023-08-23] MEDS: LORATADINE 10 MG TAB PO SCH (11:06)
[2023-08-23] MEDS: TOPIRAMATE 100 MG TAB PO SCH ×2 (11:06→22:15)
[2023-08-23] MEDS: METOPROLOL SUCCINATE XL 50 MG TAB PO SCH (11:07)
[2023-08-23] MEDS: ALLOPURINOL 100 MG TAB PO SCH (11:07)
[2023-08-23] MEDS: CLOPIDOGREL BISULFATE 75 MG TAB PO SCH (11:07)
[2023-08-23] MEDS: SODIUM CHLORIDE 0.9% 1,000 ML IV SCH ×2 (11:10→22:15)
[2023-08-23] MEDS: levoFLOXacin 500MG 100 ML IV SCH (22:21)
[2023-08-24 05:00] VITALS: BP 108/45; PULSE 61; RESP 20; TEMP 98.8; O2SAT 93
[2023-08-24] MEDS: GABAPENTIN 300 MG CAP PO SCH (06:39)
== END 2023-08-24 07:00 | DRG 244 ==
LOC: ER 16:51 → OVERFLOW 08-17 00:01 → EAST 08-17 17:26
PROVIDERS: ADMIT Nurse Practitioner Family; ATTEND Family Medicine
PROC: 05HA33Z Insertion of Infusion Device into Left Brachial Vein, Percutaneous Approach (ICD-10-PCS; principal; 2023-08-21)
PROC: B54NZZA Ultrasonography of Left Upper Extremity Veins, Guidance (ICD-10-PCS; 2023-08-21)
DX: K57.32 Diverticulitis of large intestine without perforation or abscess without bleeding (principal); K85.90 Acute pancreatitis without necrosis or infection, unspecified; K55.9 Vascular disorder of intestine, unspecified; I11.0 Hypertensive heart disease with heart failure; N39.0 Urinary tract infection, site not specified; D64.9 Anemia, unspecified; M10.9 Gout, unspecified; R56.9 Unspecified convulsions; I25.10 Atherosclerotic heart disease of native coronary artery without angina pectoris; I50.9 Heart failure, unspecified; E03.9 Hypothyroidism, unspecified; Z88.5 Allergy status to narcotic agent; Z88.0 Allergy status to penicillin; Z90.49 Acquired absence of other specified parts of digestive tract; I25.2 Old myocardial infarction; Z81.8 Family history of other mental and behavioral disorders; Z95.1 Presence of aortocoronary bypass graft
CPT/HCPCS: 36415; 74176; 80053; 81001; 83690; 83735; 83880; 84484; 85025; 86704; 86706; 86708; 86803; 87086; 87340; 87426; 96365; 96367; 97110; 97116; 97163; 97530; G0378; J1956; J2543; J3490; J7060; Q0162

== ENCOUNTER 2023-11-21 13:01 | Inpatient (IN) | payer MEDICARE, MEDICAID ==
[~2023-11-21] VITALS: Ht 167.6 cm; Wt 119.0 kg
[2023-11-21 13:54] LABS: Basophils # (auto) 0.1 10 ^3/uL (0-0.2); Basophils % (auto) 0.5 % (0.0-2.0); Eosinophils # (auto) 0 10 ^3/uL (0-0.8); Eosinophils % (auto) 0.3 % (0.0-7.0); Hematocrit 45.2 % (41.0-53.0); Hemoglobin 14.5 g/dL (13.5-17.5); Lymphocytes # (auto) 1.2 10 ^3/uL (0.4-5.4); Lymphocytes % (auto) 10.7 % (10.0-50.0); Mean Corpuscular Hgb Conc. 32.1 g/dL (32.0-36.0); Mean Corpuscular Volume 93.6 fL (80.0-100.0); Monocytes # (auto) 0.9 10 ^3/uL (0-1.3); Monocytes % (auto) 8.1 % (0.0-12.0); Neutrophils # (auto) 8.9 10 ^3/uL (1.6-8.6); Neutrophils % (auto) 80.4 % (37.0-80.0); Nucleated Red Blood Cells % 0.2 %; Red Blood Cells 4.83 10^6/uL (4.5-5.90); Red Cell Distribution Width 14.7 % (11.8-14.3); White Blood Cell 11.1 10^3/uL (4.4-10.8)
[2023-11-21 14:22] LABS: Alanine Aminotransferase 639 U/L (7-40); Albumin 4.4 g/dL (3.2-4.8); Alkaline Phosphatase 199 U/L (46-116); Anion Gap 5 (5-15); Aspartate Aminotransferase > 1000 U/L (13-40); BUN/Creatinine Ratio 11.3 (10.0-20.0); Blood Urea Nitrogen 13 mg/dL (9-23); Calcium 9.1 mg/dL (8.7-10.4); Carbon Dioxide 23 mmol/L (20-30); Chloride 111 mmol/L (98-107); Glucose 124 mg/dL (74-106); Potassium 4.7 mmol/L (3.5-5.1); Sodium 139 mmol/L (136-145)
[2023-11-21 14:23] LABS: Bilirubin, Total 1.8 mg/dL (0.2-1.0); Total Protein 8.2 g/dL (5.7-8.2)
[2023-11-21 14:37] LABS: Lipase > 3500 U/L (12-53)
[2023-11-21 14:54] LABS: Urine Epithelial Cast None Seen /hpf (<5)
[2023-11-21 15:06] LABS: Urine Bacteria MANY /hpf (None Seen); Urine Blood 3+ /uL (Negative); Urine Clarity HAZY (Clear); Urine Color Yellow (Yellow); Urine Protein, UAD Negative (Negative); Urine Specific Gravity 1.011 (1.001-1.035); Urine Urobilinogen Normal (Negative); Urine WBC 52 /hpf (0 - 3)
[2023-11-21] MEDS ORDERED: ACETAMINOPHEN 325 MG TAB PO PRN (15:30)
[2023-11-21] MEDS ORDERED: HYDROcodone-ACET 5/325MG TAB PO PRN (15:30)
[2023-11-21] MEDS ORDERED: SODIUM CHLORIDE 0.9% 1,000 ML IV ONE (15:30)
[2023-11-21] MEDS ORDERED: ONDANSETRON HCL 4 MG/2 ML VIAL IV PRN (15:30)
[2023-11-21] MEDS ORDERED: fentaNYL CITRATE 100 MCG/2 ML VL IV ONE (15:30)
[2023-11-21 15:55] LABS: Triglycerides 64 mg/dL (< 150)
[2023-11-21 15:56] LABS: LDL Cholesterol 40 mg/dL (< 100)
[2023-11-21 15:57] LABS: Cholesterol 101 mg/dL (< 200); HDL Cholesterol 41 mg/dL (40-59)
[2023-11-21] MEDS ORDERED: PIPERACILLIN-TAZOB 3.375GM 100 ML IV ONE (17:00)
[2023-11-21] MEDS ORDERED: KETOROLAC TROMETH 30 MG/ML 1ML VIAL IV ONE (17:00)
[2023-11-21] MEDS ORDERED: KETOROLAC TROMETH 30 MG/ML 1ML VIAL IV PRN (17:00)
[2023-11-21 17:06] LABS: Triglycerides 56 mg/dL (< 150)
[2023-11-21 17:07] LABS: LDL Cholesterol 36 mg/dL (< 100)
[2023-11-21 17:08] LABS: HDL Cholesterol 43 mg/dL (40-59)
[2023-11-21 17:09] LABS: Cholesterol 95 mg/dL (< 200)
[2023-11-21 22:00] VITALS: BP 120/78; PULSE 78; RESP 18; TEMP 98; O2SAT 95
[2023-11-21] MEDS ORDERED: ATORVASTATIN 20 MG TAB PO SCH (22:00)
[2023-11-21] MEDS ORDERED: FAMOTIDINE 20 MG TAB PO SCH (22:00)
[2023-11-21] MEDS ORDERED: PANTOPRAZOLE 40 MG TAB PO SCH (22:00)
[2023-11-21] MEDS: PIPERACILLIN-TAZOB 3.375GM 100 ML IV SCH (22:21)
[2023-11-21] MEDS: GABAPENTIN 300 MG CAP PO SCH (22:21)
[2023-11-21] MEDS: APIXABAN 5 MG TAB PO SCH (22:21)
[2023-11-21] MEDS: levETIRAcetam 500 MG TAB PO SCH (22:21)
[2023-11-21] MEDS: TOPIRAMATE 100 MG TAB PO SCH (22:27)
[2023-11-22] VITALS (7 sets, daily range): BP systolic 103–126; BP diastolic 52–71; PULSE 63–71; RESP 18–20; TEMP 97.3–98.1; O2SAT 93–98
[2023-11-22] MEDS: SODIUM CHLORIDE 0.9% 1,000 ML IV SCH ×2 (00:22→08:10)
[2023-11-22] MEDS: GABAPENTIN 300 MG CAP PO SCH ×3 (06:18→22:21)
[2023-11-22] MEDS: PIPERACILLIN-TAZOB 3.375GM 100 ML IV SCH ×3 (06:18→22:21)
[2023-11-22 07:14] LABS: Alanine Aminotransferase 406 U/L (7-40); Albumin 3.6 g/dL (3.2-4.8); Alkaline Phosphatase 144 U/L (46-116); Anion Gap 8 (5-15); Aspartate Aminotransferase 382 U/L (13-40); BUN/Creatinine Ratio 13.2 (10.0-20.0); Blood Urea Nitrogen 14 mg/dL (9-23); Calcium 8.5 mg/dL (8.7-10.4); Carbon Dioxide 19 mmol/L (20-30); Chloride 114 mmol/L (98-107); Glucose 108 mg/dL (74-106); Lipase 518 U/L (12-53); Potassium 3.8 mmol/L (3.5-5.1); Sodium 141 mmol/L (136-145)
[2023-11-22 07:15] LABS: Bilirubin, Total 0.8 mg/dL (0.2-1.0); Total Protein 6.5 g/dL (5.7-8.2)
[2023-11-22 08:15] LABS: Basophils # (auto) 0 10 ^3/uL (0-0.2); Basophils % (auto) 0.2 % (0.0-2.0); Eosinophils # (auto) 0.1 10 ^3/uL (0-0.8); Hematocrit 45.9 % (41.0-53.0); Hemoglobin 13.3 g/dL (13.5-17.5); Lymphocytes # (auto) 1.9 10 ^3/uL (0.4-5.4); Lymphocytes % (auto) 19.9 % (10.0-50.0); Mean Corpuscular Hemoglobin 29.6 pg (28.0-32.0); Mean Corpuscular Hgb Conc. 29.1 g/dL (32.0-36.0); Mean Corpuscular Volume 101.9 fL (80.0-100.0); Monocytes # (auto) 0.8 10 ^3/uL (0-1.3); Monocytes % (auto) 8.2 % (0.0-12.0); Neutrophils # (auto) 6.8 10 ^3/uL (1.6-8.6); Neutrophils % (auto) 70.7 % (37.0-80.0); Red Cell Distribution Width 16.2 % (11.8-14.3); White Blood Cell 9.5 10^3/uL (4.4-10.8)
[2023-11-22 09:34] LABS: Macrocytosis Slight; Platelet Estimate Adequate
[2023-11-22] MEDS ORDERED: ENOXAPARIN SOD 40 MG/0.4 ML SYRINGE SC SCH (10:00)
[2023-11-22] MEDS: levETIRAcetam 500 MG TAB PO SCH ×2 (10:30→22:21)
[2023-11-22] MEDS: CLOPIDOGREL BISULFATE 75 MG TAB PO SCH (10:31)
[2023-11-22] MEDS: FOLIC ACID 1 MG TAB PO SCH (10:31)
[2023-11-22] MEDS: TOPIRAMATE 100 MG TAB PO SCH ×2 (10:31→22:21)
[2023-11-22] MEDS: ALLOPURINOL 100 MG TAB PO SCH (10:32)
[2023-11-22] MEDS: LORATADINE 10 MG TAB PO SCH (10:32)
[2023-11-22] MEDS: FINASTERIDE 5 MG TAB PO SCH (10:32)
[2023-11-22] MEDS: CYANOCOBALAMIN 500 MCG TAB PO SCH (10:32)
[2023-11-22] MEDS: METOPROLOL SUCCINATE XL 50 MG TAB PO SCH (10:33)
[2023-11-22] MEDS: APIXABAN 5 MG TAB PO SCH ×2 (10:33→22:21)
[2023-11-22] MEDS: PANTOPRAZOLE 40 MG/10 ML VIAL INJ IV SCH (22:20)
[2023-11-23] VITALS (7 sets, daily range): BP systolic 100–152; BP diastolic 35–78; PULSE 68–72; RESP 16–20; TEMP 97.4–99; O2SAT 92–96
[2023-11-23 02:14] LABS: Amphetamine Screen, Urine Neg (NEGATIVE); Barbiturate Scree,Urine Neg (NEGATIVE); Benzodiazephine Screen, Urine Neg (NEGATIVE); Cannabinoid Screen, Urine Neg (NEGATIVE); Cocaine Screen, Urine Neg (NEGATIVE); Opiate Scree,Urine Neg (NEGATIVE); Phencyclidine Screen, Urine Neg (NEGATIVE)
[2023-11-23] MEDS: GABAPENTIN 300 MG CAP PO SCH ×3 (06:09→22:12)
[2023-11-23] MEDS: PIPERACILLIN-TAZOB 3.375GM 100 ML IV SCH ×3 (06:09→22:11)
[2023-11-23] MEDS: SODIUM CHLORIDE 0.9% 1,000 ML IV SCH ×2 (06:09→17:22)
[2023-11-23 06:29] LABS: Basophils # (auto) 0 10 ^3/uL (0-0.2); Basophils % (auto) 0.1 % (0.0-2.0); Eosinophils # (auto) 0.4 10 ^3/uL (0-0.8); Hematocrit 36.3 % (41.0-53.0); Hemoglobin 11.9 g/dL (13.5-17.5); Lymphocytes # (auto) 1.9 10 ^3/uL (0.4-5.4); Lymphocytes % (auto) 17.8 % (10.0-50.0); Mean Corpuscular Hemoglobin 30.7 pg (28.0-32.0); Mean Corpuscular Hgb Conc. 32.9 g/dL (32.0-36.0); Mean Corpuscular Volume 93.3 fL (80.0-100.0); Monocytes % (auto) 9.3 % (0.0-12.0); Neutrophils # (auto) 7.4 10 ^3/uL (1.6-8.6); Neutrophils % (auto) 68.8 % (37.0-80.0); Nucleated Red Blood Cells % 0.1 %; Red Blood Cells 3.89 10^6/uL (4.5-5.90); Red Cell Distribution Width 14.6 % (11.8-14.3); White Blood Cell 10.7 10^3/uL (4.4-10.8)
[2023-11-23 06:39] LABS: INR 1.14 (0.9-1.15); Partial Thromboplastin Time 33.9 SEC (24.5-34.5); Prothrombin Time 11.9 sec (9.3-11.8)
[2023-11-23 06:40] LABS: Alanine Aminotransferase 231 U/L (7-40); Albumin 3.3 g/dL (3.2-4.8); Alkaline Phosphatase 117 U/L (46-116); Anion Gap 8 (5-15); BUN/Creatinine Ratio 12.7 (10.0-20.0); Blood Urea Nitrogen 13 mg/dL (9-23); Calcium 8.3 mg/dL (8.7-10.4); Carbon Dioxide 19 mmol/L (20-30); Chloride 112 mmol/L (98-107); Glucose 84 mg/dL (74-106); Lipase 89 U/L (12-53); Potassium 3.8 mmol/L (3.5-5.1); Sodium 139 mmol/L (136-145)
[2023-11-23 06:41] LABS: Aspartate Aminotransferase 126 U/L (13-40); Bilirubin, Total 0.9 mg/dL (0.2-1.0); Total Protein 6.2 g/dL (5.7-8.2)
[2023-11-23] MEDS: APIXABAN 5 MG TAB PO SCH ×2 (10:39→22:12)
[2023-11-23] MEDS: PANTOPRAZOLE 40 MG/10 ML VIAL INJ IV SCH ×2 (10:39→22:11)
[2023-11-23] MEDS: TOPIRAMATE 100 MG TAB PO SCH ×2 (10:39→22:12)
[2023-11-23] MEDS: ALLOPURINOL 100 MG TAB PO SCH (10:40)
[2023-11-23] MEDS: FOLIC ACID 1 MG TAB PO SCH (10:40)
[2023-11-23] MEDS: FINASTERIDE 5 MG TAB PO SCH (10:42)
[2023-11-23] MEDS: METOPROLOL SUCCINATE XL 50 MG TAB PO SCH (10:42)
[2023-11-23] MEDS: CYANOCOBALAMIN 500 MCG TAB PO SCH (10:42)
[2023-11-23] MEDS: CLOPIDOGREL BISULFATE 75 MG TAB PO SCH (10:43)
[2023-11-23] MEDS: levETIRAcetam 500 MG TAB PO SCH ×2 (10:43→22:12)
[2023-11-23] MEDS: LORATADINE 10 MG TAB PO SCH (10:43)
[2023-11-24] VITALS (8 sets, daily range): BP systolic 114–125; BP diastolic 58–72; PULSE 66–86; RESP 16–20; TEMP 97.7–98.3; O2SAT 90–95
[2023-11-24] MEDS: GABAPENTIN 300 MG CAP PO SCH ×3 (05:32→21:45)
[2023-11-24] MEDS: PIPERACILLIN-TAZOB 3.375GM 100 ML IV SCH ×3 (05:32→21:45)
[2023-11-24] MEDS: PANTOPRAZOLE 40 MG/10 ML VIAL INJ IV SCH ×2 (09:53→21:45)
[2023-11-24] MEDS: TOPIRAMATE 100 MG TAB PO SCH ×2 (09:54→21:45)
[2023-11-24] MEDS: METOPROLOL SUCCINATE XL 50 MG TAB PO SCH (09:54)
[2023-11-24] MEDS: ALLOPURINOL 100 MG TAB PO SCH (09:55)
[2023-11-24] MEDS: LORATADINE 10 MG TAB PO SCH (09:55)
[2023-11-24] MEDS: CLOPIDOGREL BISULFATE 75 MG TAB PO SCH (09:55)
[2023-11-24] MEDS: FOLIC ACID 1 MG TAB PO SCH (09:55)
[2023-11-24] MEDS: levETIRAcetam 500 MG TAB PO SCH ×2 (09:55→21:45)
[2023-11-24] MEDS: APIXABAN 5 MG TAB PO SCH ×2 (09:55→21:45)
[2023-11-24] MEDS: FINASTERIDE 5 MG TAB PO SCH (09:55)
[2023-11-24] MEDS: CYANOCOBALAMIN 500 MCG TAB PO SCH (09:55)
[2023-11-24] MEDS: SODIUM CHLORIDE 0.9% 1,000 ML IV SCH (14:02)
[2023-11-25] MEDS: SODIUM CHLORIDE 0.9% 1,000 ML IV SCH (04:28)
[2023-11-25 05:00] VITALS: BP 112/92; PULSE 69; RESP 18; TEMP 97.5; O2SAT 92
[2023-11-25] MEDS: GABAPENTIN 300 MG CAP PO SCH ×2 (05:34→15:03)
[2023-11-25] MEDS: PIPERACILLIN-TAZOB 3.375GM 100 ML IV SCH ×2 (05:34→14:00)
[2023-11-25 08:00] VITALS: RESP 18
[2023-11-25 09:00] VITALS: BP 111/51; PULSE 65; RESP 18; TEMP 98.2; O2SAT 94
[2023-11-25 09:19] LABS: Hepatitis B Surface Antigen Negative (Negative)
[2023-11-25 09:39] LABS: Hepatitis A Ab IgM Negative
[2023-11-25 09:40] LABS: Hepatitis B Core IgM Negative; Hepatitis C Antibody Negative (Negative)
[2023-11-25] MEDS ORDERED: PANT40T PO (10:02)
[2023-11-25] MEDS ORDERED: ZOFR4T PO (10:03)
[2023-11-25] MEDS: PANTOPRAZOLE 40 MG/10 ML VIAL INJ IV SCH (10:23)
[2023-11-25] MEDS: APIXABAN 5 MG TAB PO SCH (10:24)
[2023-11-25] MEDS: METOPROLOL SUCCINATE XL 50 MG TAB PO SCH (10:24)
[2023-11-25] MEDS: CLOPIDOGREL BISULFATE 75 MG TAB PO SCH (10:24)
[2023-11-25] MEDS: CYANOCOBALAMIN 500 MCG TAB PO SCH (10:25)
[2023-11-25] MEDS: FINASTERIDE 5 MG TAB PO SCH (10:25)
[2023-11-25] MEDS: levETIRAcetam 500 MG TAB PO SCH (10:26)
[2023-11-25] MEDS: TOPIRAMATE 100 MG TAB PO SCH (10:26)
[2023-11-25] MEDS: FOLIC ACID 1 MG TAB PO SCH (10:26)
[2023-11-25] MEDS: LORATADINE 10 MG TAB PO SCH (10:26)
[2023-11-25] MEDS: ALLOPURINOL 100 MG TAB PO SCH (10:26)
[2023-11-25 13:00] VITALS: BP 118/62; PULSE 67; RESP 17; TEMP 98; O2SAT 93
== END 2023-11-25 16:30 | disposition home or self-care (01) | DRG 282 ==
LOC: ER 13:01 → OVERFLOW 15:23 → CENTRAL 19:15 → EAST 11-22 19:43
PROVIDERS: ADMIT Nurse Practitioner Family; ATTEND Family Medicine
DX: K85.90 Acute pancreatitis without necrosis or infection, unspecified (principal); F03.90 Unspecified dementia, unspecified severity, without behavioral disturbance, psychotic disturbance, mood disturbance, and anxiety; I50.9 Heart failure, unspecified; I11.0 Hypertensive heart disease with heart failure; E03.9 Hypothyroidism, unspecified; K21.9 Gastro-esophageal reflux disease without esophagitis; I25.10 Atherosclerotic heart disease of native coronary artery without angina pectoris; M10.9 Gout, unspecified; E78.5 Hyperlipidemia, unspecified; K75.9 Inflammatory liver disease, unspecified; E66.01 Morbid (severe) obesity due to excess calories; G40.909 Epilepsy, unspecified, not intractable, without status epilepticus; K57.90 Diverticulosis of intestine, part unspecified, without perforation or abscess without bleeding; Z68.41 Body mass index [BMI] 40.0-44.9, adult; I25.2 Old myocardial infarction; Z95.1 Presence of aortocoronary bypass graft; Z95.5 Presence of coronary angioplasty implant and graft; Z88.0 Allergy status to penicillin; Z88.5 Allergy status to narcotic agent; Z79.01 Long term (current) use of anticoagulants; R74.01 Elevation of levels of liver transaminase levels
CPT/HCPCS: 36415; 74176; 74181; 76705; 80053; 80061; 80074; 80307; 80320; 80329; 81001; 82140; 82270; 82542; 83605; 83690; 83880; 84443; 84484; 85025; 85048; 85610; 85730; 87177; 93005; 97110; 97116; 97163; 97530; 99291; C9113; G0378; J1885; J2543

== ENCOUNTER 2023-12-27 20:04 | Inpatient (IN) | payer MEDICARE, MEDICAID ==
[~2023-12-27] VITALS: Ht 167.6 cm; Wt 118.1 kg
[~2023-12-27 20:04] MED LIST changes: -FAMO-12 PO; -LEVO500T31 PO; -METR500T PO; +ZOFR4T PO
[2023-12-27 20:55] LABS: Basophils # (auto) 0 10 ^3/uL (0-0.2); Basophils % (auto) 0.2 % (0.0-2.0); Eosinophils # (auto) 0.1 10 ^3/uL (0-0.8); Eosinophils % (auto) 0.3 % (0.0-7.0); Hematocrit 45.2 % (41.0-53.0); Lymphocytes # (auto) 1.4 10 ^3/uL (0.4-5.4); Lymphocytes % (auto) 7.3 % (10.0-50.0); Mean Corpuscular Hemoglobin 30.2 pg (28.0-32.0); Mean Corpuscular Hgb Conc. 31.1 g/dL (32.0-36.0); Mean Corpuscular Volume 97.3 fL (80.0-100.0); Monocytes % (auto) 5.1 % (0.0-12.0); Neutrophils # (auto) 16.6 10 ^3/uL (1.6-8.6); Neutrophils % (auto) 87.1 % (37.0-80.0); Red Blood Cells 4.64 10^6/uL (4.5-5.90); Red Cell Distribution Width 15.4 % (11.8-14.3); White Blood Cell 19.1 10^3/uL (4.4-10.8)
[2023-12-27 21:26] LABS: Alanine Aminotransferase 21 U/L (7-40); Albumin 4.2 g/dL (3.2-4.8); Alkaline Phosphatase 93 U/L (46-116); Anion Gap 8 (5-15); Aspartate Aminotransferase 28 U/L (13-40); BUN/Creatinine Ratio 11.2 (10.0-20.0); Blood Urea Nitrogen 12 mg/dL (9-23); Calcium 9.4 mg/dL (8.5-10.1); Carbon Dioxide 19 mmol/L (20-30); Chloride 112 mmol/L (98-107); Glucose 147 mg/dL (74-106); Potassium 4.6 mmol/L (3.5-5.1); Sodium 139 mmol/L (136-145)
[2023-12-27 21:27] LABS: Bilirubin, Total 0.3 mg/dL (0.2-1.0); Total Protein 7.7 g/dL (5.7-8.2)
[2023-12-27] MEDS: ACETAMINOPHEN 325 MG TAB PO ONE (22:00)
[2023-12-27 22:35] VITALS: PULSE 102; RESP 16; O2SAT 91
[2023-12-28] MEDS: IOHEXOL 300 MG/ML 100ML BOTTLE IJ ONE (00:04)
[2023-12-28] MEDS: ACETAMINOPHEN 325 MG TAB PO ONE (00:07)
[2023-12-28 00:09] LABS: Urine Bacteria MANY /hpf (None Seen); Urine Blood Negative /uL (Negative); Urine Clarity Clear (Clear); Urine Color Yellow (Yellow); Urine Protein, UAD Negative (Negative); Urine Urobilinogen Normal (Negative); Urine WBC 3 /hpf (0 - 3); Urine pH 7.5 (5.0-8.0)
[2023-12-28] MEDS ORDERED: IBUPROFEN 600 MG TAB PO PRN (00:15)
[2023-12-28] MEDS ORDERED: ONDANSETRON HCL 4 MG/2 ML VIAL IV PRN (00:15)
[2023-12-28] MEDS ORDERED: ACETAMINOPHEN 325 MG TAB PO PRN (00:15)
[2023-12-28] MEDS ORDERED: DOCUSATE SOD 100 MG CAP PO PRN (00:15)
[2023-12-28] MEDS: cefTRIAXone 1GM/50ML D5W 50 ML IV ONE (00:30)
[2023-12-28] MEDS: levoFLOXacin 500MG 100 ML IV ONE (01:03)
[2023-12-28] MEDS ORDERED: NITROGLYCERIN 0.4 MG SL TAB SL PRN (02:45)
[2023-12-28] MEDS ORDERED: MORPHINE SULFATE INJ 2 MG/ml SYRG IV PRN (02:45)
[2023-12-28] MEDS ORDERED: VANCOMYCIN PER PHARMACY 0 MG IV SCH (03:00)
[2023-12-28] MEDS ORDERED: VANCOMYCIN 1GM/200ML 200 ML IV SCH (03:45)
[2023-12-28 04:45] LABS: Basophils # (auto) 0.1 10 ^3/uL (0-0.2); Basophils % (auto) 0.6 % (0.0-2.0); Eosinophils # (auto) 0 10 ^3/uL (0-0.8); Eosinophils % (auto) 0.1 % (0.0-7.0); Hematocrit 37.5 % (41.0-53.0); Hemoglobin 12.3 g/dL (13.5-17.5); Lymphocytes # (auto) 3.1 10 ^3/uL (0.4-5.4); Lymphocytes % (auto) 14.1 % (10.0-50.0); Mean Corpuscular Hemoglobin 30.5 pg (28.0-32.0); Mean Corpuscular Hgb Conc. 32.8 g/dL (32.0-36.0); Mean Corpuscular Volume 92.9 fL (80.0-100.0); Monocytes # (auto) 1.3 10 ^3/uL (0-1.3); Monocytes % (auto) 6.2 % (0.0-12.0); Neutrophils # (auto) 17.2 10 ^3/uL (1.6-8.6); Red Blood Cells 4.03 10^6/uL (4.5-5.90); Red Cell Distribution Width 14.6 % (11.8-14.3); White Blood Cell 21.8 10^3/uL (4.4-10.8)
[2023-12-28 06:01] LABS: Alanine Aminotransferase 19 U/L (7-40); Albumin 3.6 g/dL (3.2-4.8); Alkaline Phosphatase 79 U/L (46-116); Anion Gap 8 (5-15); Aspartate Aminotransferase 24 U/L (13-40); BUN/Creatinine Ratio 16.4 (10.0-20.0); Blood Urea Nitrogen 18 mg/dL (9-23); Calcium 8.6 mg/dL (8.5-10.1); Carbon Dioxide 19 mmol/L (20-30); Chloride 112 mmol/L (98-107); Glucose 108 mg/dL (74-106); Potassium 4.4 mmol/L (3.5-5.1); Sodium 139 mmol/L (136-145)
[2023-12-28 06:02] LABS: Bilirubin, Total 0.5 mg/dL (0.2-1.0); Total Protein 6.3 g/dL (5.7-8.2)
[2023-12-28] MEDS: SODIUM CHLOR 0.9% PF (SALINE LOCK) 10ML VIAL/SYR IV SCH (06:10)
[2023-12-28 08:00] VITALS: PULSE 65; PULSE 67; RESP 16; TEMP 98; O2SAT 95
[2023-12-28] MEDS: PANTOPRAZOLE 40 MG/10 ML VIAL INJ IV SCH (08:57)
[2023-12-28] MEDS: VANCOMYCIN 1GM/200ML 200 ML IV ONE (08:57)
[2023-12-28] MEDS: APIXABAN 5 MG TAB PO SCH (08:58)
[2023-12-28 09:00] VITALS: BP 112/61; PULSE 67; RESP 18; TEMP 98.4; O2SAT 92
[2023-12-28] MEDS: CARVEDILOL 12.5 MG TAB PO SCH (09:02)
[2023-12-28] MEDS: levETIRAcetam 500 mg/100ml 100 ML IV SCH (10:00)
[2023-12-28 13:00] VITALS: BP 108/58; PULSE 67; RESP 20; TEMP 98.1; O2SAT 93
[2023-12-28 17:00] VITALS: BP 109/62; PULSE 68; RESP 22; TEMP 98.3; O2SAT 95
[2023-12-28] MEDS: VANCOMYCIN 1GM/200ML 200 ML IV SCH (17:25)
[2023-12-28 20:00] VITALS: PULSE 69; RESP 16
[2023-12-28 22:00] VITALS: BP 101/62; PULSE 71; RESP 18; TEMP 97.7; O2SAT 96
[2023-12-28] MEDS: levETIRAcetam 500 MG TAB PO SCH (22:38)
[2023-12-28] MEDS: levoFLOXacin 500MG 100 ML IV SCH (23:55)
[2023-12-29] VITALS (9 sets, daily range): BP systolic 97–118; BP diastolic 54–62; PULSE 65–69; RESP 16–20; TEMP 97.5–97.9; O2SAT 94–97
[2023-12-29 07:04] LABS: Basophils # (auto) 0 10 ^3/uL (0-0.2); Basophils % (auto) 0.3 % (0.0-2.0); Eosinophils # (auto) 0.2 10 ^3/uL (0-0.8); Eosinophils % (auto) 1.7 % (0.0-7.0); Hematocrit 38.5 % (41.0-53.0); Hemoglobin 12.5 g/dL (13.5-17.5); Lymphocytes # (auto) 2.1 10 ^3/uL (0.4-5.4); Lymphocytes % (auto) 14.6 % (10.0-50.0); Mean Corpuscular Hemoglobin 30.1 pg (28.0-32.0); Mean Corpuscular Hgb Conc. 32.5 g/dL (32.0-36.0); Mean Corpuscular Volume 92.8 fL (80.0-100.0); Monocytes # (auto) 1.1 10 ^3/uL (0-1.3); Monocytes % (auto) 7.6 % (0.0-12.0); Neutrophils # (auto) 10.7 10 ^3/uL (1.6-8.6); Neutrophils % (auto) 75.8 % (37.0-80.0); Red Blood Cells 4.15 10^6/uL (4.5-5.90); Red Cell Distribution Width 14.6 % (11.8-14.3); White Blood Cell 14.2 10^3/uL (4.4-10.8)
[2023-12-29 07:19] LABS: Alanine Aminotransferase 14 U/L (7-40); Albumin 3.9 g/dL (3.2-4.8); Alkaline Phosphatase 80 U/L (46-116); Anion Gap 6 (5-15); Aspartate Aminotransferase 20 U/L (13-40); BUN/Creatinine Ratio 15.6 (10.0-20.0); Blood Urea Nitrogen 17 mg/dL (9-23); Calcium 9.2 mg/dL (8.5-10.1); Carbon Dioxide 20 mmol/L (20-30); Chloride 112 mmol/L (98-107); Glucose 104 mg/dL (74-106); Potassium 4.4 mmol/L (3.5-5.1); Sodium 138 mmol/L (136-145)
[2023-12-29 07:20] LABS: Bilirubin, Total 0.3 mg/dL (0.2-1.0)
[2023-12-29] MEDS ORDERED: ALBUTEROL SULF 2.5 MG/0.5ML(0.5%) NEB SOLN NEB PRN (11:15)
[2023-12-30] VITALS (8 sets, daily range): BP systolic 104–114; BP diastolic 52–58; PULSE 57–68; RESP 16–20; TEMP 97.2–98.2; O2SAT 95–96
[2023-12-30] MEDS: VANCOMYCIN 1GM/200ML 200 ML IV SCH ×2 (00:17→01:15)
[2023-12-30 06:19] LABS: Basophils # (auto) 0 10 ^3/uL (0-0.2); Basophils % (auto) 0.3 % (0.0-2.0); Eosinophils # (auto) 0.3 10 ^3/uL (0-0.8); Hematocrit 37.3 % (41.0-53.0); Hemoglobin 12.2 g/dL (13.5-17.5); Lymphocytes # (auto) 1.8 10 ^3/uL (0.4-5.4); Lymphocytes % (auto) 17.5 % (10.0-50.0); Mean Corpuscular Hemoglobin 30.6 pg (28.0-32.0); Mean Corpuscular Hgb Conc. 32.8 g/dL (32.0-36.0); Mean Corpuscular Volume 93.3 fL (80.0-100.0); Monocytes # (auto) 0.8 10 ^3/uL (0-1.3); Monocytes % (auto) 7.7 % (0.0-12.0); Neutrophils # (auto) 7.3 10 ^3/uL (1.6-8.6); Neutrophils % (auto) 71.5 % (37.0-80.0); Red Cell Distribution Width 14.4 % (11.8-14.3); White Blood Cell 10.2 10^3/uL (4.4-10.8)
[2023-12-30 06:20] LABS: Potassium 4.3 mmol/L (3.5-5.1)
[2023-12-30 06:22] LABS: Calcium 9.3 mg/dL (8.7-10.4)
[2023-12-30 06:28] LABS: Albumin 3.6 g/dL (3.2-4.8)
[2023-12-30 06:29] LABS: Phosphorus 3.8 mg/dL (2.4-5.1)
[2023-12-30] MEDS: MEROPENEM 2 GM in SODIUM CHL 0.9% 250 ML IV SCH (14:59)
[2023-12-31] VITALS (9 sets, daily range): BP systolic 93–130; BP diastolic 45–65; PULSE 56–117; RESP 18–20; TEMP 97.3–98.4; O2SAT 92–100
[2023-12-31] MEDS: ERTAPENEM SOD INJ 1 GM in SODIUM CHL 0.9% 50 ML IV ONE (13:57)
[2024-01-01] VITALS (7 sets, daily range): BP systolic 103–122; BP diastolic 49–60; PULSE 57–61; RESP 17–20; TEMP 97.3–98.4; O2SAT 92–96
[2024-01-01] MEDS: ERTAPENEM SOD INJ 1 GM in SODIUM CHL 0.9% 50 ML IV SCH (08:40)
== END 2024-01-01 18:12 | DRG 720 ==
LOC: ER 20:04 → EDBD 20:04 → TELE 12-28 02:43 → TELE-WESTW 12-28 06:26
PROVIDERS: ADMIT Nurse Practitioner Family; ATTEND Internal Medicine Geriatric Medicine
PROC: 05HB33Z Insertion of Infusion Device into Right Basilic Vein, Percutaneous Approach (ICD-10-PCS; principal; 2023-12-31)
PROC: B54MZZA Ultrasonography of Right Upper Extremity Veins, Guidance (ICD-10-PCS; 2023-12-31)
DX: A41.9 Sepsis, unspecified organism (principal); J96.00 Acute respiratory failure, unspecified whether with hypoxia or hypercapnia; J15.69 Pneumonia due to other Gram-negative bacteria; I24.9 Acute ischemic heart disease, unspecified; J15.9 Unspecified bacterial pneumonia; I11.0 Hypertensive heart disease with heart failure; I50.9 Heart failure, unspecified; E66.01 Morbid (severe) obesity due to excess calories; N39.0 Urinary tract infection, site not specified; R73.9 Hyperglycemia, unspecified; Z68.41 Body mass index [BMI] 40.0-44.9, adult; M10.9 Gout, unspecified; B96.20 Unspecified Escherichia coli [E. coli] as the cause of diseases classified elsewhere; Z16.12 Extended spectrum beta lactamase (ESBL) resistance; E03.9 Hypothyroidism, unspecified; E78.5 Hyperlipidemia, unspecified; I25.10 Atherosclerotic heart disease of native coronary artery without angina pectoris; K21.9 Gastro-esophageal reflux disease without esophagitis; R56.9 Unspecified convulsions; Z88.0 Allergy status to penicillin; Z90.5 Acquired absence of kidney; Z95.1 Presence of aortocoronary bypass graft
CPT/HCPCS: 36415; 71045; 71260; 74177; 80053; 80069; 80202; 81001; 81003; 83036; 83880; 84484; 85025; 87040; 87086; 87088; 87186; 93005; 93306; 96365; 96379; 97110; 97116; 97163; 97530; C9113; G0378; J1335; J1956

== ENCOUNTER 2024-06-02 13:59 | Inpatient (IN) | payer MEDICARE, MEDICAID ==
[~2024-06-02] VITALS: Ht 167.6 cm; Wt 126.6 kg
[2024-06-02] MEDS ORDERED: HYDR-4798 PO (16:23)
[2024-06-02] MEDS ORDERED: LIDO5DIS21 TOP (16:23)
[2024-06-02] MEDS ORDERED: NITROGLYCERIN 0.4 MG SL TAB SL PRN (18:15)
[2024-06-02] MEDS: HYDROmorphone HCL 2 MG/ML VL/or syr IV ONE (18:15)
[2024-06-02] MEDS ORDERED: ENOXAPARIN SOD 40 MG/0.4 ML SYRINGE SC SCH (18:15)
[2024-06-02] MEDS ORDERED: ONDANSETRON HCL 4 MG/2 ML VIAL IV PRN (18:15)
[2024-06-02] MEDS: HYDROcodone-ACET 10/325MG TAB PO ONE (19:02)
[2024-06-02] MEDS: CYCLOBENZAPRINE HCL 10 MG TAB PO ONE (19:05)
[2024-06-02 20:00] VITALS: BP 111/53; PULSE 67; RESP 14; TEMP 97.9; O2SAT 95
[2024-06-02 20:14] VITALS: BP 102/50; PULSE 60; RESP 17; TEMP 98.1; O2SAT 95
[2024-06-02 22:00] VITALS: BP 102/56; PULSE 60; RESP 17; TEMP 98.1; O2SAT 95
[2024-06-02] MEDS ORDERED: GABAPENTIN 300 MG CAP PO SCH (22:00)
[2024-06-02] MEDS: APIXABAN 5 MG TAB PO SCH (22:51)
[2024-06-02] MEDS: levETIRAcetam 500 MG TAB PO SCH (22:52)
[2024-06-02] MEDS: ATORVASTATIN 20 MG TAB PO SCH (22:52)
[2024-06-02] MEDS: PANTOPRAZOLE 40 MG TAB PO SCH (22:53)
[2024-06-02] MEDS: GABAPENTIN 300 MG CAP PO SCH (22:53)
[2024-06-02] MEDS: TOPIRAMATE 100 MG TAB PO SCH (22:53)
[2024-06-03] VITALS (8 sets, daily range): BP systolic 96–130; BP diastolic 45–64; PULSE 60–70; RESP 17–22; TEMP 97.3–98.1; O2SAT 93–96
[2024-06-03] MEDS: CYCLOBENZAPRINE HCL 10 MG TAB PO SCH (06:22)
[2024-06-03 06:32] LABS: Basophils # (auto) 0 10 ^3/uL (0-0.2); Basophils % (auto) 0.5 % (0.0-2.0); Eosinophils # (auto) 0.2 10 ^3/uL (0-0.8); Eosinophils % (auto) 3.1 % (0.0-7.0); Hematocrit 35.8 % (41.0-53.0); Lymphocytes # (auto) 2.7 10 ^3/uL (0.4-5.4); Lymphocytes % (auto) 37.9 % (10.0-50.0); Mean Corpuscular Hemoglobin 30.8 pg (28.0-32.0); Mean Corpuscular Hgb Conc. 33.5 g/dL (32.0-36.0); Mean Corpuscular Volume 92.1 fL (80.0-100.0); Monocytes # (auto) 0.6 10 ^3/uL (0-1.3); Neutrophils # (auto) 3.5 10 ^3/uL (1.6-8.6); Neutrophils % (auto) 49.5 % (37.0-80.0); Nucleated Red Blood Cells % 0.1 %; Red Blood Cells 3.89 10^6/uL (4.5-5.90); Red Cell Distribution Width 15.3 % (11.8-14.3)
[2024-06-03 06:45] LABS: Alanine Aminotransferase 15 U/L (7-40); Albumin 3.5 g/dL (3.2-4.8); Alkaline Phosphatase 66 U/L (46-116); Anion Gap 8 (5-15); Aspartate Aminotransferase 15 U/L (13-40); BUN/Creatinine Ratio 13.9 (10.0-20.0); Blood Urea Nitrogen 15 mg/dL (9-23); Carbon Dioxide 22 mmol/L (20-30); Chloride 112 mmol/L (98-107); Glucose 94 mg/dL (74-106); Potassium 3.8 mmol/L (3.5-5.1); Sodium 142 mmol/L (136-145)
[2024-06-03 06:46] LABS: Bilirubin, Total 0.3 mg/dL (0.2-1.0); Total Protein 6.2 g/dL (5.7-8.2)
[2024-06-03] MEDS: HYDROmorphone HCL 2 MG/ML VL/or syr IV PRN (09:59)
[2024-06-03] MEDS: CLOPIDOGREL BISULFATE 75 MG TAB PO SCH (10:00)
[2024-06-03] MEDS: ALLOPURINOL 100 MG TAB PO SCH (10:00)
[2024-06-03] MEDS: LORATADINE 10 MG TAB PO SCH (10:01)
[2024-06-03] MEDS: FINASTERIDE 5 MG TAB PO SCH (10:01)
[2024-06-03] MEDS: METOPROLOL SUCCINATE XL 50 MG TAB PO SCH (10:01)
[2024-06-03] MEDS ORDERED: HYDROcodone-ACET 10/325MG TAB PO PRN (10:15)
[2024-06-03] MEDS ORDERED: traMADol HCL 50 MG TAB PO PRN (10:15)
[2024-06-03] MEDS: FOLIC ACID 1 MG TAB PO SCH (10:20)
[2024-06-03] MEDS: CYANOCOBALAMIN 500 MCG TAB PO SCH (10:20)
[2024-06-03] MEDS: LIDOCAINE 5% TOPICAL PATCH TOP SCH (12:45)
[2024-06-03] MEDS: DULoxetine HCL 30 MG CAP PO ONE (14:39)
[2024-06-03] MEDS: ACETAMINOPHEN 500 MG TAB PO SCH (14:40)
[2024-06-03] MEDS: IBUPROFEN 400 MG TAB PO SCH (14:40)
[2024-06-03] MEDS: DOCUSATE SOD 100 MG CAP PO PRN (21:34)
[2024-06-04 01:00] VITALS: BP 125/47; PULSE 67; RESP 19; TEMP 97.8; O2SAT 95
[2024-06-04 05:00] VITALS: BP 102/46; PULSE 65; RESP 18; TEMP 98.5; O2SAT 93
[2024-06-04 05:37] LABS: Basophils # (auto) 0 10 ^3/uL (0-0.2); Basophils % (auto) 0.5 % (0.0-2.0); Eosinophils # (auto) 0.3 10 ^3/uL (0-0.8); Eosinophils % (auto) 3.4 % (0.0-7.0); Hematocrit 37.1 % (41.0-53.0); Hemoglobin 12.5 g/dL (13.5-17.5); Lymphocytes # (auto) 2.2 10 ^3/uL (0.4-5.4); Lymphocytes % (auto) 29.4 % (10.0-50.0); Mean Corpuscular Hemoglobin 31.4 pg (28.0-32.0); Mean Corpuscular Hgb Conc. 33.8 g/dL (32.0-36.0); Mean Corpuscular Volume 92.9 fL (80.0-100.0); Monocytes # (auto) 0.6 10 ^3/uL (0-1.3); Monocytes % (auto) 7.7 % (0.0-12.0); Neutrophils # (auto) 4.4 10 ^3/uL (1.6-8.6); Nucleated Red Blood Cells % 0.1 %; Red Blood Cells 3.99 10^6/uL (4.5-5.90); Red Cell Distribution Width 15.3 % (11.8-14.3); White Blood Cell 7.4 10^3/uL (4.4-10.8)
[2024-06-04 05:48] LABS: Chloride 112 mmol/L (98-107); Potassium 4.4 mmol/L (3.5-5.1); Sodium 141 mmol/L (136-145)
[2024-06-04 05:49] LABS: Anion Gap 7 (5-15); Carbon Dioxide 22 mmol/L (20-30)
[2024-06-04 05:54] LABS: BUN/Creatinine Ratio 16.5 (10.0-20.0); Blood Urea Nitrogen 16 mg/dL (9-23); Glucose 106 mg/dL (74-106)
[2024-06-04 08:37] VITALS: BP 138/58; PULSE 62; RESP 16; TEMP 97.4; O2SAT 93
[2024-06-04] MEDS: DULoxetine HCL 30 MG CAP PO SCH (09:17)
[2024-06-04 13:00] VITALS: BP 109/35; PULSE 57; RESP 16; TEMP 97.6; O2SAT 94
[2024-06-04 17:00] VITALS: BP 95/31; PULSE 54; RESP 16; TEMP 97.7; O2SAT 92
[2024-06-04 21:00] VITALS: BP 100/61; PULSE 63; RESP 20; TEMP 98.3; O2SAT 91
[2024-06-05 01:00] VITALS: BP 95/48; PULSE 61; RESP 16; TEMP 98.1; O2SAT 94
[2024-06-05 05:00] VITALS: BP 115/53; PULSE 62; RESP 18; TEMP 97.9; O2SAT 92
[2024-06-05 05:29] LABS: Basophils # (auto) 0.1 10 ^3/uL (0-0.2); Basophils % (auto) 1.5 % (0.0-2.0); Eosinophils # (auto) 0.2 10 ^3/uL (0-0.8); Eosinophils % (auto) 2.7 % (0.0-7.0); Hematocrit 38.4 % (41.0-53.0); Lymphocytes # (auto) 2.6 10 ^3/uL (0.4-5.4); Lymphocytes % (auto) 31.2 % (10.0-50.0); Mean Corpuscular Hemoglobin 31.4 pg (28.0-32.0); Mean Corpuscular Hgb Conc. 33.9 g/dL (32.0-36.0); Mean Corpuscular Volume 92.4 fL (80.0-100.0); Monocytes # (auto) 0.5 10 ^3/uL (0-1.3); Monocytes % (auto) 5.7 % (0.0-12.0); Neutrophils # (auto) 4.9 10 ^3/uL (1.6-8.6); Neutrophils % (auto) 58.9 % (37.0-80.0); Nucleated Red Blood Cells % 0.1 %; Red Blood Cells 4.15 10^6/uL (4.5-5.90); White Blood Cell 8.2 10^3/uL (4.4-10.8)
[2024-06-05 05:37] LABS: Anion Gap 6 (5-15); Carbon Dioxide 22 mmol/L (20-30); Chloride 111 mmol/L (98-107); Potassium 4.2 mmol/L (3.5-5.1); Sodium 139 mmol/L (136-145)
[2024-06-05 05:38] LABS: Calcium 9.1 mg/dL (8.7-10.4)
[2024-06-05 05:42] LABS: Glucose 111 mg/dL (74-106)
[2024-06-05 05:43] LABS: BUN/Creatinine Ratio 11.3 (10.0-20.0); Blood Urea Nitrogen 13 mg/dL (9-23)
[2024-06-05 08:37] VITALS: BP 100/30; PULSE 60; RESP 17; TEMP 98.1; O2SAT 91
[2024-06-05 12:40] VITALS: BP 128/38; PULSE 70; RESP 17; TEMP 97.7; O2SAT 91
[2024-06-05] MEDS ORDERED: IBUP1TAB5 PO (13:57)
[2024-06-05] MEDS ORDERED: DULO20CA PO (13:57)
[2024-06-05] MEDS ORDERED: ACET650T12 PO (13:57)
[2024-06-05 16:57] VITALS: BP 115/54; PULSE 90; RESP 17; TEMP 97.7; O2SAT 93
== END 2024-06-05 18:18 | disposition home health service (06) | DRG 347 ==
LOC: ER 14:01 → OVERFLOW 18:10 → CENTRAL 22:00
PROVIDERS: ADMIT Student in an Organized Health Care Education/Training Program; ATTEND Student in an Organized Health Care Education/Training Program
DX: M54.42 Lumbago with sciatica, left side (principal); I50.32 Chronic diastolic (congestive) heart failure; E87.8 Other disorders of electrolyte and fluid balance, not elsewhere classified; E03.9 Hypothyroidism, unspecified; I11.0 Hypertensive heart disease with heart failure; M54.41 Lumbago with sciatica, right side; M1A.9XX0 Chronic gout, unspecified, without tophus (tophi); E78.5 Hyperlipidemia, unspecified; I25.10 Atherosclerotic heart disease of native coronary artery without angina pectoris; E66.01 Morbid (severe) obesity due to excess calories; K21.9 Gastro-esophageal reflux disease without esophagitis; Z88.0 Allergy status to penicillin; Z95.1 Presence of aortocoronary bypass graft; Z79.899 Other long term (current) drug therapy; Z68.41 Body mass index [BMI] 40.0-44.9, adult
CPT/HCPCS: 36415; 72131; 80048; 80053; 85025; 87081; 97110; 97116; 97163; 97530; G0378

== ENCOUNTER 2024-08-31 17:07 | Inpatient (IN) | payer MEDICARE, MEDICAID ==
[~2024-08-31] VITALS: Ht 167.6 cm; Wt 119.5 kg
[~2024-08-31 17:07] MED LIST changes: +ACET650T12 PO; +DULO20CA PO; +IBUP1TAB5 PO
[2024-08-31] MEDS: LORazepam 2MG/ML-1ML VIAL ONE (18:09)
[2024-08-31] MEDS: levETIRAcetam 1000 mg/100ml 100 ML IV ONE (18:28)
--- NOTE | 2024-08-31 18:40 | ED.PDOC ---
History of Present Illness HPI Comments This is a 69-year-old male who comes in with chief complaint of seizures x2 today. According to the family they noticed that the patient had a tonic-clonic seizure lasting approximately 1 minute. The patient was not had a seizure for approximately three years. The patient then had another seizure lasting for approximately [address] minute[address] EN route, the patient's Accu-Chek was 115. He is also complaining of some abdominal pain as well as nausea upon arrival. Upon arrival, the patient was postictal but was attempting to answer some questions. We attempted to take a history on this patient but he still seems to be somewhat postictal. Chief Complaint: Seizure Time Seen by MD: 17:59 Primary Care Provider: BRADLEY Reviewed Notes: Nurses Notes, Configuration Specialist Notes, Medications, Allergies (Allergies to codeine and penicillin) Allergies: Coded Allergies: Codeine (Verified Allergy, Unknown, 05/26/19) Penicillins (Verified Allergy, Unknown, 05/26/19) Home Meds Active Scripts Duloxetine Hcl (Cymbalta) 20 Mg Cap, 1 CAP PO DAILY for 30 Days, #30 CAP 2 Refills Prov:QIAN JOHNSON RESIDENT 06/05/24 Acetaminophen (Acetaminophen Er) 650 Mg Tab, 650 MG PO Q8HP PRN for 30 Days, #90 TAB Prov:QIAN JOHNSON RESIDENT 06/05/24 Ibuprofen Micronized (Ibuprofen) 600 Mg Tab, 600 MG PO Q8HP PRN for 14 Days, #42 TAB Prov:QIAN JOHNSON RESIDENT 06/05/24 Ondansetron Odt 4MG Tab (ZOFRAN PO) 4 Mg Tb, 4 MG PO Q6HP PRN, #30 TAB ODT TAB-DISSOLVE IN MOUTH, THEN SWALLOW Prov:CHARLIE ALTAMIRANO MD 11/25/23 Pantoprazole Sodium Sesquihydr (Pantoprazole Sodium) 40 Mg Tab, 40 MG PO BID, #60 TAB Prov:CHARLIE ALTAMIRANO MD 11/25/23 Metoprolol Succinate (Toprol Xl) 50 Mg Tab, 25 MG PO DAILY, #30 TAB Prov:JEN ELIZABETH MD 06/16/20 Cyanocobalamin (Gnp Vitamin B12) 500 Mcg Tab, 1000 MCG PO DAILY for 30 Days, #60 TAB Prov:KISHORE TRINH MD 07/17/19 Atorvastatin Calcium (ATORVASTATIN CALCIUM) 20 Mg Tab, 40 MG PO HS for 20 Days, #40 TAB Prov:BENNIE FLOWERS MD 06/06/19 Clopidogrel Bisulfate (Plavix) 75 Mg Tab, 75 MG PO DAILY for 20 Days, #20 TAB Prov:BENNIE FLOWERS MD 06/06/19 Reported Medications Apixaban Base (ELIQUIS) 5 Mg Tab, 5 MG PO BID, TAB 01/25/21 Loratadine (Claritin) 10 Mg Tab, 1 TAB PO DAILY, #30 TAB 5 Refills 03/21/20 Finasteride (Finasteride) 5 Mg Tab, 5 MG PO DAILY for 30 Days, MG 05/27/19 Folic Acid (Folic Acid) 1 Mg Tab, 1 MG PO DAILY for 30 Days, MG 05/27/19 Topiramate (Topiramate) 100 Mg Tab, 100 MG PO BID for 30 Days, MG 05/27/19 Gabapentin (Gabapentin) 300 Mg Cap, 300 MG PO TID for 30 Days, MG 05/27/19 Allopurinol (Allopurinol) 100 Mg Tab, 100 MG PO DAILY for 30 Days, MG 05/27/19 Levetiracetam (Keppra) 500 Mg Tab, 500 MG PO BID for 30 Days, MG 05/27/19 Information Source: Patient, Emergency Med Personnel Mode of Arrival: EMS Severity: Moderate Timing: Minutes Duration: Intermittent Prehospital treatment: Accucheck (115), Corporate Webmaster, IVF Associated signs and symptoms Associated nausea and abdominal pain Past Medical History PAST MEDICAL HISTORY: Anemia, CAD, CHF, GERD, Gout, High Lipids, HTN, MD, Seizures, Thyroid Surgical History: CABG, PTCA Family History Family History: Reviewed,noncontributory to illness, Family hx of HTN Social History Smoker: Non-Smoker Alcohol: Rarely Drugs: Denies Drug Use Lives In: Home Constitutional: denies: chills, diaphoresis, fatigue, fever, malaise, sweats, weakness, others EENTM: denies: blurred vision, double vision, ear bleeding, ear discharge, ear drainage, ear pain, ear ringing, eye pain, eye redness, hearing loss, mouth pain, mouth swelling, nasal discharge, nose bleeding, nose congestion, nose pain, photophobia, tearing, throat pain, throat swelling, voice changes, others Respiratory: denies: cough, hemoptysis, orthopnea, SOB at rest, shortness of breath, SOB with excertion, stridor, wheezing, others Cardiovascular: denies: chest pain, dizzy spells, diaphoresis, Dyspnea on exe rtion, edema, irregular heart beat, left arm pain, lightheadedness, palpitations, PND, syncope, others Gastrointestinal: reports: abdominal pain, nausea; denies: abdomen distended, blood streaked bowels, constipated, diarrhea, dysphagia, difficulty swallowing, hematemesis, melena, poor appetite, poor fluid intake, rectal bleeding, rectal pain, vomiting, others Genitourinary: denies: burning, dysuria, flank pain, frequency, hematuria, incontinence, penile discharge, penile sore, pain, testicle pain, testicle swelling, urgency, others Neurological: reports: seizure; denies: dizziness, fainting, headache, left sided numbness, left sided weakness, numbness, paresthesia, pre-existing deficit, right sided numbness, right sided weakness, speech problems, tingling, tremors, weakness, others Musculoskeletal: denies: back pain, gout, joint pain, joint swelling, muscle pa in, muscle stiffness, neck pain, others Integumetry: denies: bruises, change in color, change in hair/nails, dryness, laceration, lesions, lumps, rash, wounds, others Allergic/Immunocompromised: denies: Difficulty Healing, Frequent Infections, Hives, Itching, others Hematologic/Lymphatic: denies: anemia, blood clots, easy bleeding, easy bruising, swollen glands, others Endocrine: denies: excessive hunger, excessive sweating, excessive thirst, excessive urination, flushing, intolerance to cold, intolerance to heat, unexplained weight gain, unexplained weight loss, others Psychiatric: denies: anxiety, bipolar disorder, depression, hopeless, panic disorder, schizophrenia, sleepless, suicidal, others Physical Exam General Appearance: Moderate Distress, Obese HEENT: Normal ENT Inspection, Pharynx Normal, TMs Normal Neck: Full Range of Motion, Non-Tender, Normal, Normal Inspection Respiratory: Chest Non-Tender, Lungs Clear, No Accessory Muscle Use, No Respiratory Distress, Normal Breath Sounds Cardiovascular: No Edema, No JVD, No Murmur, No Gallop, Normal Peripheral Pulses, Regular Rate/Rhythm Breast Exam: Deferred Gastrointestinal: Diffuse, No Organomegaly, No Pulsatile Mass, Normal Bowel Sounds, Soft, Tenderness Genitalia: Deferred Pelvic: Deferred Rectal: Deferred Extremities: No calf tenderness, Normal capillary refill, Normal inspection, Normal range of motion, Non-tender, No pedal edema Musculoskeletal : Apperance: Normal Neurologic: Alert, home health lvn II-XII nml as Tested, No Motor Deficits, Normal Affect, Normal Mood, No Sensory Deficits Cerebellar Function: Normal Reflexes: Normal Skin: Dry, Normal Color, Warm Lymphatic: No Adenopathy Was a procedure done? Was a procedure done?: No Differential Dx Considerations may include: Generalized weakness, electrolyte imbalance, seizures, altered mental status X-Ray, Labs, Meds, VS Vital Signs Date Time Temp Pulse Resp B/P (MAP) Pulse Ox O2 Delivery O2 Flow Rate FiO2 08/31/24 18:47 86 16 176/90 (118) 95 08/31/24 17:28 Room Air* 0 21 08/31/24 17:12 98.0 93 18 189/101 (130) 97 Lab Test 08/31/24 18:35 Range/Units White Blood Count 10.2 4.4-10.8 10^3/uL Red Blood Count 4.34 L 4.5-5.90 10^6/uL Hemoglobin 14.0 13.5-17.5 g/dL Hematocrit 42.1 41.0-53.0 % Mean Corpuscular Volume 97.1 80.0-100.0 fL Mean Corpuscular Hemoglobin 32.3 H 28.0-32.0 pg Mean Corpuscular Hemoglobin Concent 33.3 32.0-36.0 g/dL Red Cell Distribution Width 14.6 H 11.8-14.3 % Platelet Count 216 140-450 10^3/uL Mean Platelet Volume 7.9 6.9-10.8 fL Neutrophils (%) (Auto) 71.9 37.0-80.0 % Lymphocytes (%) (Auto) 20.7 10.0-50.0 % Monocytes (%) (Auto) 6.4 0.0-12.0 % Eosinophils (%) (Auto) 0.6 0.0-7.0 % Basophils (%) (Auto) 0.4 0.0-2.0 % Neutrophils # (Auto) 7.3 1.6-8.6 10 ^3/uL Lymphocytes # (Auto) 2.1 0.4-5.4 10 ^3/uL Monocytes # (Auto) 0.6 0-1.3 10 ^3/uL Eosinophils # (Auto) 0.1 0-0.8 10 ^3/uL Basophils # (Auto) 0 0-0.2 10 ^3/uL Nucleated Red Blood Cells 0.1 % Sodium Level 140 136-145 mmol/L Potassium Level 4.3 3.5-5.1 mmol/L Chloride Level 112 H 98-107 mmol/L Carbon Dioxide Level 21 20-31 mmol/L Anion Gap 7 5-15 Blood Urea Nitrogen 12 9-23 mg/dL Creatinine 1.03 0.700-1.30 mg/dL Glomerular Filtration Rate Calc 79 >90 mL/min BUN/Creatinine Ratio 11.7 10.0-20.0 Serum Glucose 124 H 74-106 mg/dL Calcium Level 9.6 8.7-10.4 mg/dL Total Bilirubin 0.3 0.2-1.0 mg/dL Aspartate Amino Transferase (AST) 45 H 13-40 U/L Alanine Aminotransferase (ALT) 45 H 7-40 U/L Alkaline Phosphatase 89 46-116 U/L Total Protein 7.4 5.7-8.2 g/dL Albumin 4.0 3.2-4.8 g/dL Current Medications Medications (Trade) Dose Ordered Sig/Virginie Route Start Time Stop Time Status Last Admin Levetiracetam 100 ml @ 400 mls/hr ONCE ONCE IV 08/31/24 18:15 08/31/24 18:29 DC 08/31/24 18:28 PROCEDURE(s): ABPL - CT AB PEL WO CON-NO ORAL OR IV IMPRESSION: No acute abdominal or pelvic findings. Angela mesentery which is a nonspecific finding with a broad differential which includes mesenteric panniculitis, idiopathic, or inflammatory bowel disease. Other etiologies not excluded. END IMPRESSION: The patient was started on Keppra 1 g IV piggyback The patient's CBC and chemistry panel are within normal limits The patient's mental status remains same as altered The patient is being admitted at this time. Images Reviewed?: Images reviewed and evaluated by me Time of 1ST Reevaluation: 18:39 Reevaluation 1ST: Unchanged Patient Education/Counseling: Diagnosis, Treatment, Prognosis Family Education/Counseling: No Family Present Departure 1 Departure Time of Disposition: 20:24 Impression: Primary Impression: Breakthrough seizure Additional Impression: Altered mental status Qualified Codes: R41.82 - Altered mental status, unspecified Disposition: 09 ADMITTED INPATIENT Admit to: Tele Condition: Fair Critical Care Note Critical Care Time?: Yes (35 min-critical care time only) Stability Stability form required: Yes Unstable for transfer: Telemetry monitoring (Telemetry monitoring required), ED Physician Assesment (Clinical assesment) Heart Score Heart Score: Heart Score Response (Comments) Value History N/A 0 EKG N/A 0 Age N/A 0 Risk Factors N/A 0 Troponin N/A 0 Total 0 I personally scribed for DONTRELL CHACON MD ([email or web address]) on 08/31/24 at 20:23. Electronically submitted by Tori Waters ([email or web address]). DONTRELL CHACON MD Aug 31, 2024 18:40
[2024-08-31 18:45] LABS: Basophils # (auto) 0 10 ^3/uL (0-0.2); Basophils % (auto) 0.4 % (0.0-2.0); Eosinophils # (auto) 0.1 10 ^3/uL (0-0.8); Eosinophils % (auto) 0.6 % (0.0-7.0); Hematocrit 42.1 % (41.0-53.0); Lymphocytes # (auto) 2.1 10 ^3/uL (0.4-5.4); Lymphocytes % (auto) 20.7 % (10.0-50.0); Mean Corpuscular Hemoglobin 32.3 pg (28.0-32.0); Mean Corpuscular Hgb Conc. 33.3 g/dL (32.0-36.0); Mean Corpuscular Volume 97.1 fL (80.0-100.0); Monocytes # (auto) 0.6 10 ^3/uL (0-1.3); Monocytes % (auto) 6.4 % (0.0-12.0); Neutrophils # (auto) 7.3 10 ^3/uL (1.6-8.6); Neutrophils % (auto) 71.9 % (37.0-80.0); Nucleated Red Blood Cells % 0.1 %; Platelet Count (auto) 216 10^3/uL (140-450); Red Blood Cells 4.34 10^6/uL (4.5-5.90); Red Cell Distribution Width 14.6 % (11.8-14.3); White Blood Cell 10.2 10^3/uL (4.4-10.8)
[2024-08-31 18:59] LABS: Alanine Aminotransferase 45 U/L (7-40); Alkaline Phosphatase 89 U/L (46-116); Anion Gap 7 (5-15); BUN/Creatinine Ratio 11.7 (10.0-20.0); Blood Urea Nitrogen 12 mg/dL (9-23); Calcium 9.6 mg/dL (8.7-10.4); Carbon Dioxide 21 mmol/L (20-31); Chloride 112 mmol/L (98-107); Glucose 124 mg/dL (74-106); Potassium 4.3 mmol/L (3.5-5.1); Sodium 140 mmol/L (136-145)
[2024-08-31 19:00] LABS: Aspartate Aminotransferase 45 U/L (13-40); Bilirubin, Total 0.3 mg/dL (0.2-1.0); Total Protein 7.4 g/dL (5.7-8.2)
[2024-08-31 19:25] VITALS: PULSE 80; RESP 20; O2SAT 95
--- NOTE | 2024-08-31 20:05 | DVH ---
Exam: CT CT AB PEL WO CON-NO ORAL OR IV History: pain Comparison Study: None available at time of dictation. Technique: Multidetector spiral CT of the abdomen was performed from lung bases to pubic symphysis. Imaging was performed without IV contrast. Axial, coronal and sagittal multiplanar reformats were ob tained from the axial data set by the technologist. Radiation Dose : 1. Abdomen/Pelvis: CTDIvol 27 mGy, DLP 1500 mGy*cm. Findings: Evaluation of solid organs is limited due to lack of intravenous contrast use. Lung Bases: No acute or significant lung base finding. Normal heart size. No pleural or pericardial effusion. Liver: The liver is normal in size. No focal lesions. Gallbladder and Biliary Tree: Gallbladder is surgically absent. Spleen: Unremarkable Pancreas: The pancreas is grossly normal in appearance. Adrenal Glands: Unremarkable Kidneys: Severely atrophic and lobulated left kidney Bladder: Grossly unremarkable for degree of distention. Bowel: The stomach is grossly normal in appearance. Small bowel and colon are normal in caliber and d istribution. The appendix is not visualized; however, no secondary findings of acute appendicitis id entified. Diverticulosis. Ascites: Absent Lymphadenopathy: No mesenteric, retroperitoneal or periportal lymphadenopathy. Abdominal Wall and Mesentery: .Subtle ground-glass opacification involving the mid mesentery. Vasculature: The visualized abdominal aorta is normal in size and caliber. Evaluation of abdominal a nd pelvic vessels is limited due to lack of intravenous contrast. Pelvic Organs: Unremarkable Musculoskeletal: No aggressive focal bony lesions, acute fractures or dislocation. IMPRESSION: No acute abdominal or pelvic findings. Angela mesentery which is a nonspecific finding with a broad di fferential which includes mesenteric panniculitis, idiopathic, or inflammatory bowel disease. Other e tiologies not excluded. END IMPRESSION:
[2024-08-31 21:23] LABS: Urine Bacteria None Seen /hpf (None Seen)
[2024-08-31] MEDS ORDERED: MORPHINE SULFATE INJ 2 MG/ml SYRG IV PRN (21:30)
[2024-08-31] MEDS ORDERED: ONDANSETRON HCL 4 MG/2 ML VIAL IV PRN (21:30)
[2024-08-31] MEDS ORDERED: NITROGLYCERIN 0.4 MG SL TAB SL PRN (21:30)
[2024-08-31] MEDS ORDERED: ACETAMINOPHEN 325 MG TAB PO PRN (21:30)
[2024-08-31 21:34] LABS: Urine Blood Negative /uL (Negative); Urine Clarity Clear (Clear); Urine Color Light-Yellow (Yellow); Urine Protein, UAD TRACE (Negative); Urine Specific Gravity 1.021 (1.001-1.035); Urine Urobilinogen Normal (Negative); Urine WBC 1 /hpf (0 - 3)
--- NOTE | 2024-08-31 21:50 | DVHHPRES ---
History of Present Illness Resident Creating Document: SHILOH DIALLO RESIDENT History of Present Illness This is a 69 years old male with past medical history of coronary artery disease with s/p PTCA , CVA, seizure disorder, Afib , CHF, hypertension, hyperlipidemia, GERD, gout, Chronic back pain, hypothyroidism presented to the ED with a complaint of breakthrough seizure 2 times prior to this admission. According to the patient he has 2 episodes of unprovoked generalized tonic-clonic seizure lasts less than 1 minute followed by postictal confusion and witnessed by family since morning but denies any tongue bite, incontinence or any trauma to the head or other parts of the body. Patient has 2 more episodes of seizure in the ED last less than 45 seconds. The patient mentioned that his last seizure was 3 years ago and he is compliant with medication and following with neurologist in [place]. He denies any chest pain, dizziness, diaphoresis, headache, blurring of vision, any weakness any parts of the body, abdominal pain, nausea, vomiting or any change in bowel and bladder habit . Past Medical History Coronary artery disease with s/p PTCA ,seizure disorder, DVT, CHF, hypertension, hyperlipidemia, GERD, gout, Chronic back pain, hypothyroidism Past Surgical History PTCA Family History: None Smoke: No ALCOHOL: none Drugs: None Lives: with Family Review of Systems Constitutional: No: Fever, Chills, Sweats, Weakness, Malaise, Other Eyes: No: Pain, Vision change, Conjunctivae inflammation, Eyelid inflammation, Other, Redness ENT: No: Ear pain, Ear discharge, Nose pain, Nose discharge, Nose congestion, Mouth pain, Mouth swelling, Throat pain, Throat swelling, Other Respiratory: No: Cough, Dry, Shortness of breath, SOB with excertion, Wheezing, Hemoptysis, Pleuritic Pain, Sputum, Wheezing, Other Cardiovascular: No: Chest Pain, Palpitations, Orthopnea, Paroxysmal Noc. Dyspnea, Edema, Lt Headedness, Other Gastrointestinal: No: Nausea, Vomiting, Abdominal Pain, Diarrhea, Constipation, Melena, Hematochezia, Other Genitourinary: No Dysuria, No Frequency, No Incontinence, No Hematuria, No Retention, No Other Musculoskeletal: shoulder pain, arm pain, back pain, leg pain Skin: No: Rash, Lesions, Jaundice, Bruising, Other Neurological: Seizures; No: Weakness, Numbness, Incoordination, Change in speech, Confusion, Other Allergies: Coded Allergies: Codeine (Verified Allergy, Unknown, 05/26/19) Penicillins (Verified Allergy, Unknown, 05/26/19) Medications Current Medications Medications Dose Ordered Sig/Virginie Route Start Time Stop Time Status Last Admin Dose Admin Sodium Chloride 1,000 ml @ 75 mls/hr [id number] IV 08/31/24 21:30 Acetaminophen 325 mg Q4HP PRN PO 08/31/24 21:30 Acetaminophen/ Hydrocodone Bitart 1 tab Q4HP PRN PO 08/31/24 21:30 Ondansetron HCl 4 mg Q4HP PRN IV 08/31/24 21:30 Nitroglycerin 0.4 mg Q5MINP PRN SL 08/31/24 21:30 Morphine Sulfate 2 mg Q30M PRN IV 08/31/24 21:30 Exam Vital Signs Vital Signs Date Time Temp Pulse Resp B/P (MAP) Pulse Ox O2 Delivery O2 Flow Rate FiO2 08/31/24 20:00 82 08/31/24 18:47 16 176/90 (118) 95 08/31/24 17:28 Room Air* 0 21 08/31/24 17:12 98.0 Exam Physical examination: General Appearance: Alert, Oriented X3, Cooperative, No acute distress HEENT: Atraumatic, PERRLA, EOMI, Mucous membrane moist/pink Respiratory: Clear to auscultation, Normal air movement Cardiovascular: Regular rate, Normal S1, Normal S2, No murmurs, no chest wall tenderness Abdominal: Normal bowel sounds, Soft, No tenderness, No hepatospenomegaly, No masses Extremities: Back pain, SLR+ bilaterally, No clubbing, No cyanosis, No edema, Normal pulses, No tenderness/swelling Skin: No rashes, No breakdown, No significant lesion Neuro: Use electrical scooter, Normal speech, Strength at 5/5 X4 ext, Normal tone, Sensation intact Psych/Mental Status: Mental status NL, Mood NL Labs/Xrays Labs Test 08/31/24 21:15 08/31/24 18:35 Range/Units Urine Color Light-yellow Yellow Urine Clarity Clear Clear Urine pH 7.0 5.0-9.0 Urine Specific [place] 1.021 1.001-1.035 Urine Protein Trace H Negative Urine Ketones Negative Negative Urine Blood Negative Negative /uL Urine Nitrite Negative Negative Urine Bilirubin Negative Negative Urine Urobilinogen Normal Negative mg/dL Urine Leukocyte Esterase Negative Negative /uL Urine RBC 2 0 - 3 /hpf Urine WBC 1 0 - 3 /hpf Urine Squamous Epithelial Cells Few <5 /hpf Urine Bacteria None seen None Seen /hpf Urine Glucose Normal Normal mg/dL White Blood Count 10.2 4.4-10.8 10^3/uL Red Blood Count 4.34 L 4.5-5.90 10^6/uL Hemoglobin 14.0 13.5-17.5 g/dL Hematocrit 42.1 41.0-53.0 % Mean Corpuscular Volume 97.1 80.0-100.0 fL Mean Corpuscular Hemoglobin 32.3 H 28.0-32.0 pg Mean Corpuscular Hemoglobin Concent 33.3 32.0-36.0 g/dL Red Cell Distribution Width 14.6 H 11.8-14.3 % Platelet Count 216 140-450 10^3/uL Mean Platelet Volume 7.9 6.9-10.8 fL Neutrophils (%) (Auto) 71.9 37.0-80.0 % Lymphocytes (%) (Auto) 20.7 10.0-50.0 % Monocytes (%) (Auto) 6.4 0.0-12.0 % Eosinophils (%) (Auto) 0.6 0.0-7.0 % Basophils (%) (Auto) 0.4 0.0-2.0 % Neutrophils # (Auto) 7.3 1.6-8.6 10 ^3/uL Lymphocytes # (Auto) 2.1 0.4-5.4 10 ^3/uL Monocytes # (Auto) 0.6 0-1.3 10 ^3/uL Eosinophils # (Auto) 0.1 0-0.8 10 ^3/uL Basophils # (Auto) 0 0-0.2 10 ^3/uL Nucleated Red Blood Cells 0.1 % Sodium Level 140 136-145 mmol/L Potassium Level 4.3 3.5-5.1 mmol/L Chloride Level 112 H 98-107 mmol/L Carbon Dioxide Level 21 20-31 mmol/L Anion Gap 7 5-15 Blood Urea Nitrogen 12 9-23 mg/dL Creatinine 1.03 0.700-1.30 mg/dL Glomerular Filtration Rate Calc 79 >90 mL/min BUN/Creatinine Ratio 11.7 10.0-20.0 Serum Glucose 124 H 74-106 mg/dL Calcium Level 9.6 8.7-10.4 mg/dL Total Bilirubin 0.3 0.2-1.0 mg/dL Aspartate Amino Transferase (AST) 45 H 13-40 U/L Alanine Aminotransferase (ALT) 45 H 7-40 U/L Alkaline Phosphatase 89 46-116 U/L Total Protein 7.4 5.7-8.2 g/dL Albumin 4.0 3.2-4.8 g/dL Assessment/Plan Assessment/Plan Assessment and plan: # Breakthrough seizure - admitted the patient in telemetry - NPO except medication - IV lorazepam 1 mg Q 5 minutes p.r.n. - IV Keppra 500 mg b.i.d. - Topiramate 100 mg p.o. b.i.d. - Consulted neurology # History of atrial fibrillation with secondary hypercoagulable state - Apixaban 5 mg b.i.d. # History of coronary artery disease with s/p PTCA 6 stents - Aspirin 81 mg daily and Plavix 75 mg daily - Atorvastatin 40 mg at HS # Prediabetes, hemoglobin A1c 6.1 - Counseled patient regarding healthy low carb diet, lifestyle modification and physical exercise # chronic back pain likely due to sciatica - Gabapentin 300 mg PO TID # History of gout - Patient is on allopurinol 100 mg daily # History of hypertension and chronic diastolic heart failure( HFpEF) - Echo on 12/28/2023 revealed ejection fraction 55% with grade 1 diastolic dysfunction - Metoprolol 25 mg daily. # Morbid obesity ( BMI 40.7 kg/m2) - Drum Attendant regarding wt reduction and lifestyle modification. # DVT prophylaxis - Patient is on apixaban. Goal of care discussed with the patient for more than 20 minutes full code Plan of treatment discussed with Dr. Guzmán Plan discussed with: Patient, Other My Orders Orders - SHILOH DIALLO RESIDENT Procedure Category Date Status Time Admit ADMIT 08/31/24 Transmitted 21:23 Code Status CODE 08/31/24 Transmitted 21:23 Sodium Chloride 0.9% PHA 08/31/24 In Process 21:30 Oxygen Per Hour RT 08/31/24 Transmitted 21:23 Acetaminophen Tablet PHA 08/31/24 In Process (Tylenol Tablet) 21:30 Hydrocodone-Acet PHA 08/31/24 In Process 5/325mg Tab ([place] 21:30 Ondansetron Hcl PHA 08/31/24 In Process (Zofran) 21:30 Complete Blood Count LAB 09/01/24 Verified 04:00 Comprehensive LAB 09/01/24 Verified Metabolic Panel 04:00 Clear Liq Diet DIET 09/01/24 Transmitted Breakfast Nitroglycerin PHA 08/31/24 In Process Sublingual (Ntrostat 21:30 Morphine Sulfate PHA 08/31/24 In Process Injection 21:30 Oxygen By Nasal RT 08/31/24 Transmitted Cannula 21:23 Stat Ekg For Chest [facility] 08/31/24 In Process Pain 21:23 Notify Md Of Changes [facility] 08/31/24 In Process From Base 21:23 Farm Helper For [facility] 08/31/24 In Process 24 Hours 21:23 Emergency Dysrhythmia [facility] 08/31/24 In Process Protocol 21:23 Rhythm Strips Once [facility] 08/31/24 In Process Every Shift 21:23 Date of Service: Aug 31, 2024 Billing Provider: DIMITRY GUZMÁN MD Common Visit Codes: [id number] INP/OBS CARE (HIGH) Secondary Visit Codes: [id number] CARE PLAN 30 MINUTES SHILOH DIALLO RESIDENT Aug 31, 2024 21:50 DIMITRY GUZMÁN MD Sep 01, 2024 09:35
[2024-08-31] MEDS: SODIUM CHLORIDE 0.9% 1,000 ML IV SCH (22:14)
[2024-08-31] MEDS: levETIRAcetam 500 mg/100ml 100 ML IV SCH (22:43)
[2024-08-31] MEDS: TOPIRAMATE 100 MG TAB PO SCH (22:44)
[2024-08-31] MEDS: GABAPENTIN 300 MG CAP PO SCH (22:44)
[2024-08-31] MEDS: APIXABAN 5 MG TAB PO SCH (22:44)
[2024-08-31] MEDS: ATORVASTATIN 20 MG TAB PO SCH (22:45)
[2024-08-31] MEDS ORDERED: LORazepam 2MG/ML-1ML VIAL IV PRN (23:45)
[2024-09-01] VITALS (9 sets, daily range): BP systolic 103–157; BP diastolic 53–79; PULSE 72–89; RESP 17–21; TEMP 97.4–98.5; O2SAT 91–97
[2024-09-01] MEDS: ERGOCALCIFEROL 50,000 UNIT(1.25MG) CAP PO SCH (04:56)
[2024-09-01] MEDS: HYDROcodone-ACET 5/325MG TAB PO PRN (06:30)
[2024-09-01 06:41] LABS: Basophils # (auto) 0 10 ^3/uL (0-0.2); Basophils % (auto) 0.2 % (0.0-2.0); Eosinophils # (auto) 0.2 10 ^3/uL (0-0.8); Eosinophils % (auto) 1.9 % (0.0-7.0); Hematocrit 38.6 % (41.0-53.0); Hemoglobin 12.8 g/dL (13.5-17.5); Lymphocytes # (auto) 2.3 10 ^3/uL (0.4-5.4); Lymphocytes % (auto) 24.7 % (10.0-50.0); Mean Corpuscular Hemoglobin 32.1 pg (28.0-32.0); Mean Corpuscular Hgb Conc. 33.2 g/dL (32.0-36.0); Mean Corpuscular Volume 96.8 fL (80.0-100.0); Monocytes # (auto) 0.7 10 ^3/uL (0-1.3); Monocytes % (auto) 7.4 % (0.0-12.0); Neutrophils # (auto) 6.2 10 ^3/uL (1.6-8.6); Neutrophils % (auto) 65.8 % (37.0-80.0); Platelet Count (auto) 201 10^3/uL (140-450); Red Blood Cells 3.99 10^6/uL (4.5-5.90); Red Cell Distribution Width 14.5 % (11.8-14.3); White Blood Cell 9.4 10^3/uL (4.4-10.8)
[2024-09-01 06:58] LABS: Alanine Aminotransferase 40 U/L (7-40); Alkaline Phosphatase 83 U/L (46-116); Anion Gap 6 (5-15); BUN/Creatinine Ratio 12.5 (10.0-20.0); Blood Urea Nitrogen 12 mg/dL (9-23); Calcium 8.9 mg/dL (8.7-10.4); Carbon Dioxide 23 mmol/L (20-31); Chloride 111 mmol/L (98-107); Glucose 102 mg/dL (74-106); Potassium 4.4 mmol/L (3.5-5.1); Sodium 140 mmol/L (136-145)
[2024-09-01 06:59] LABS: Albumin 3.6 g/dL (3.2-4.8)
[2024-09-01 07:00] LABS: Aspartate Aminotransferase 34 U/L (13-40); Bilirubin, Total 0.4 mg/dL (0.2-1.0); Total Protein 6.3 g/dL (5.7-8.2)
[2024-09-01] MEDS: CLOPIDOGREL BISULFATE 75 MG TAB PO SCH (09:54)
[2024-09-01] MEDS: ALLOPURINOL 100 MG TAB PO SCH (09:55)
[2024-09-01] MEDS: FINASTERIDE 5 MG TAB PO SCH (09:55)
[2024-09-01] MEDS: METOPROLOL SUCCINATE XL 50 MG TAB PO SCH (09:56)
--- NOTE | 2024-09-01 13:41 | ECG ---
[facility] Test Date: 2024-08-31 Test Time: 17:14:03 Pat Name: ELENA VASQUEZ Department: ER Room: 0248T A Gender: M Candy Counter Clerk: DEVIN : 1955 Requested By: DONTRELL CHACON Order Number: [id number] Reading MD: Roberto Guevara Measurements Intervals [place] Rate: 93 P: 0 DC: 237 QRS: -71 QRSD: 127 T: 19 QT: 403 QTc: 502 Interpretive Statements Sinus rhythm, first-degree AV block. Prolonged DC interval Consider right atrial enlargement RBBB and LAFB Electronically Signed On 09-03-2024 11:17:40 PST by Roberto Guevara Please click the below link to view image of tracing.
--- NOTE | 2024-09-01 15:43 | DVHPNRES ---
Progress Note Date Seen: Sep 01, 2024 Resident Creating Document: YOLY LOPEZ RESIDENT Medical Necessity Reason Pt with a Central, PICC or Fol: No Subjective Review of Systems Patient is 69 years old male with past medical history of seizure disorder, DVT, atrial fibrillation on Eliquis, coronary artery disease, status post PTCA x2 6, CVA, HFpEF,, hypertension, hypothyroidism, chronic back pain, GERD came with a complaint of having seizure 2 times in the afternoon 1 day ago. As per patient and her patient had seizure 2 times lasted for 1-2 minutes, with post seizure confusion. As per patient and his swelling his last seizure was 3 years before. Patient denied any procedure nausea, vomiting, aura, dizziness. Patient also reported having to seizure last night at the ER which lasted for 45 seconds as per patient's . Patient denied any chest pain, shortness of breath, acute joint pain or swelling, dysuria, acute dysarthria or change in vision. Initial lab workup ruled out leukocytosis or UTI. HGB A1c 6.1. PMH-seizure disorder, DVT, atrial fibrillation on Eliquis, coronary artery disease, status post PTCA x2 6, CVA, HFpEF,, hypertension, hypothyroidism, chronic back pain, GERD PSH- cholecystectomy, Allergy- penicillin, codeine Personal History/ Social History- denies smoking, alcoholism, drug abuse Patient was seen today at the bedside. Patient reports feeling better today Cardiovascular- deny acute chest pain or shortness of breath or cough or palpitation Respiratory- denies cough or short of breath or wheezing Gastrointestinal- denies any rectal bleeding, nausea or vomiting Musculoskeletal-denies acute joint swelling or tenderness or redness Neurological- denies acute dysarthria, dysphagia, change in vision Psychiatry- denies depression or SI or HI Skin- denies acute rash or purpura Patient is seen today for clinical evaluation. Labs and chart reviewed. Patient protein any seizure extremities morning. Patient's diet was changed to regular cardiac diet. Pending neurology consult. Patient on Keppra 500 mg IV b.i.d.. Objective vital signs Vital Sign Date Time Temp Pulse Resp B/P (MAP) Pulse Ox O2 Delivery O2 Flow Rate FiO2 09/01/24 13:00 98.3 72 21 103/56 (72) 94 98.3 09/01/24 08:00 Nasal Cannula* 2 28 Total Intake and Output 08/31/24 08/31/24 09/01/24 15:00 23:00 07:00 Intake Total 100 ml 600 ml Output Total 480 ml Balance 100 ml 120 ml medications Current Medications Medications Dose Ordered Sig/Virginie Route Start Time Stop Time Status Last Admin Dose Admin Sodium Chloride 1,000 ml @ 75 mls/hr [id number] IV 08/31/24 21:30 09/01/24 09:57 75 MLS/HR Acetaminophen 325 mg Q4HP PRN PO 08/31/24 21:30 Acetaminophen/ Hydrocodone Bitart 1 tab Q4HP PRN PO 08/31/24 21:30 09/01/24 06:30 1 TAB Ondansetron HCl 4 mg Q4HP PRN IV 08/31/24 21:30 Nitroglycerin 0.4 mg Q5MINP PRN SL 08/31/24 21:30 Morphine Sulfate 2 mg Q30M PRN IV 08/31/24 21:30 Allopurinol 100 mg DAILY PO 09/01/24 10:00 09/01/24 09:55 100 MG Apixaban 5 mg BID PO 08/31/24 22:00 Hold 09/01/24 09:55 5 MG Atorvastatin Calcium 40 mg HS PO 08/31/24 22:00 08/31/24 22:45 40 MG Clopidogrel Bisulfate 75 mg DAILY PO 09/01/24 10:00 09/01/24 09:54 75 MG Finasteride 5 mg DAILY PO 09/01/24 10:00 09/01/24 09:55 5 MG Gabapentin 300 mg TID PO 08/31/24 22:00 09/01/24 14:56 300 MG Metoprolol Succinate 25 mg DAILY PO 09/01/24 10:00 09/01/24 09:56 25 MG Topiramate 100 mg BID PO 08/31/24 22:00 09/01/24 09:55 100 MG Patient Own Medication 1 cap DAILY PO 09/01/24 10:00 Lorazepam 1 mg Q5MINP PRN IV 08/31/24 23:45 Ergocalciferol 50,000 unit Q7D PO 09/01/24 03:15 09/01/24 04:56 50,000 UNIT Levetiracetam 500 mg BID PO 09/01/24 22:00 Pantoprazole Sodium 40 mg BID PO 09/01/24 22:00 Examination General examination- HEENT- PEERLA, no acute nasal discharge Cardiovascular- S1-S2 audible, rate and rhythm regular, no murmur Respiratory- CTAB, no wheeze or rhonchi Gastrointestinal-nontender, bowel sound+. Nondistended Musculoskeletal-no acute joint swelling or tenderness or redness# Lower extremity- Neurological- cranial nerves intact, no acute dysarthria or dysphagia Psychiatry- denies depression or SI or HI Skin- no acute rash or purpura laboratory and microbiology Laboratory Tests 09/01/24 06:06 Test 09/01/24 06:06 Range/Units Serum Glucose 102 74-106 mg/dL Problem List/Assessment/Plan Problem List/Assessment/Plan Acute breakthrough seizure, history of seizure -pending CT head of the brain to rule out any acute infarction or hemorrhage or any other intracranial pathology -continue Keppra 500 mg p.o. b.i.d. -continue lorazepam as prescribed p.r.n. -continue topiramate 100 mg p.o. b.i.d. -seizure precaution -pending urology consult -continue telemetry #history of seizure --pending CT head of the brain to rule out any acute infarction or hemorrhage or any other intracranial pathology -continue Keppra 500 mg p.o. b.i.d. -continue lorazepam as prescribed p.r.n. -continue topiramate 100 mg p.o. b.i.d. -seizure precaution -pending urology consult -continue telemetry # history of atrial fibrillation -hold Eliquis until CT scan of the head is done and ruled out intracranial hemorrhage # CAD, status post PTCA x6 -continue atorvastatin 40 mg p.o. q.h.s. -continue Plavix 75 mg p.o. daily -continue metoprolol succinate XL25 mg p.o. daily # hypertension -continue metoprolol succinate XL 25 p.o. daily -monitor BP #HFpEF, NO ACUTE EXACERBATION --continue metoprolol succinate XL25 mg p.o. daily # hyperlipidemia -continue atorvastatin 40 mg p.o. q.h.s. # GERD -continue pantoprazole 40 mg p.o. QD # history of DVT -hold Eliquis until CT scan of the head is done and ruled out intracranial hemorrhage # history of hypothyroidism -TSH 1.22 Goals of care/advance care planning; FULL CODE; discussed with the patient PUD prophylaxis: Pantoprazole DVT prophylaxis: Plan discussed with Dr. Rosado,,, nursing staff, patient Total time spent on patient evaluation, chart review, assessment and plan, discussion discussion >20 minutes Plan discussed with: Patient Plan discussed with: Patient, Other (RN) My Orders My Orders Orders - YOLY LOPEZ Procedure Category Date Status Time Levetiracetam Tablet PHA 09/01/24 In Process (Keppra Tablet) 22:00 Pantoprazole Tablet PHA 09/01/24 In Process (Protonix Tablet) 22:[address] 09/01/24 Logged 10:28 Cardiac DIET 09/01/24 Transmitted Diet-2gna,Lofat,Lochol Lunch Date of Service: Sep 01, 2024 Billing Provider: CASSIE ROSADO MD Common Visit Codes: [id number] INP/OBS CARE(HIGH) Secondary Visit Codes: [id number] CARE PLAN 30 MINUTES YOLY LOPEZ Sep 01, 2024 15:43 CASSIE ROSADO MD Sep 01, 2024 19:06
--- NOTE | 2024-09-01 19:07 | DVH ---
Exam: CT HEAD WITHOUT CONTRAST History: History of seizure, breakthrough seizure Technique: [address] images through the posterior fossa and the supratentorial compart ment were acquired without contrast and imaged using soft tissue and bone algorithms. RADIATION DOSE: DLP 1717.53 mGy.cm; CTDI vol 66.82 mGy. Comparison: None Findings: There is no evidence of an intracranial hemorrhage, acute large vessel infarct, mass effect, or midli ne shift. The calvarium, orbits, paranasal sinuses, sella, middle ears, and mastoids are unremarkable. The superficial soft tissues are within normal limits. Impression: 1. No acute intracranial abnormality.
--- NOTE | 2024-09-01 21:40 | DVHINCON2 ---
Date of service: Sep 01, [address] Neely Reason for Consultation Breakthrough seizure: History of Present Illness Mr. Krishna is a 69 years old right-handed gentleman with a history of hypertension, dyslipidemia, coronary artery disease, heart attack, congestive heart failure, GERD, gout, obesity, seizure, he was brought to the [facility] on 08/31/2024 with a chief company of seizure activity, at this time, he is alert and fully oriented, he provided the following history He had three seizures yesterday, 2 were at home, 1 was in the emergency room, he reports complete amnesia about all the seizure activity, but he was said to have shaking all over body, and he woke up after all the seizure activity very confused. These seizures are the only seizures he had in 2023 He was born with a seizure disorder, in that he was spells of convulsion with company amnesia, he was seen many doctors, specialists, he was seizure-free in 2020, 2021, 2022. He sees a [place] doctor, he is on Keppra 500 mg b.i.d., topiramate 100 mg b.i.d. Since 2020, he has numbness in the feet, burning pain in the saw, he reported to but did not get his doctor attention He is on Eliquis 5 mg b.i.d. but he was not aware of the indication, he reports he had seven stent in his heart Urinalysis, 08/31/2024: No UTI CBC, 08/31/2024: Unremarkable CMP, 09/01/2024: Unremarkable HGB A1c, 08/31/2024: 6.1 TG/HDL/LDL/HDL, 10/2023: 56/95/36/43 Vitamin B12, 08/31/2024: 1663 TSH, 08/31/2024: 1.22 CT head, 09/01/2024: No acute intracranial abnormality. Past Medical History Hypertension, dyslipidemia, coronary artery disease, heart attack, congestive heart failure,GERD, gout, obesity, seizure Past Surgical History CABG, PTCA Family History: FH: cancer G8 FATHER G8 MOTHER FH: schizophrenia 19 CHILD Family History Hypertension, diabetes, cancer, schizophrenia Social History He is not a tobacco smoker, no history of alcohol or recreational substance abuse Allergies: Coded Allergies: Codeine (Verified Allergy, Unknown, 05/26/19) Penicillins (Verified Allergy, Unknown, 05/26/19) Home Meds Active Scripts Duloxetine Hcl (Cymbalta) 20 Mg Cap, 1 CAP PO DAILY for 30 Days, #30 CAP 2 Refills Prov:QIAN JOHNSON RESIDENT 06/05/24 Acetaminophen (Acetaminophen Er) 650 Mg Tab, 650 MG PO Q8HP PRN for 30 Days, #90 TAB Prov:QIAN JOHNSON RESIDENT 06/05/24 Ibuprofen Micronized (Ibuprofen) 600 Mg Tab, 600 MG PO Q8HP PRN for 14 Days, #42 TAB Prov:QIAN JOHNSON RESIDENT 06/05/24 Ondansetron Odt 4MG Tab (ZOFRAN PO) 4 Mg Tb, 4 MG PO Q6HP PRN, #30 TAB ODT TAB-DISSOLVE IN MOUTH, THEN SWALLOW Prov:CHARLIE ALTAMIRANO MD 11/25/23 Pantoprazole Sodium Sesquihydr (Pantoprazole Sodium) 40 Mg Tab, 40 MG PO BID, #60 TAB Prov:CHARLIE ALTAMIRANO MD 11/25/23 Metoprolol Succinate (Toprol Xl) 50 Mg Tab, 25 MG PO DAILY, #30 TAB Prov:JEN ELIZABETH MD 06/16/20 Cyanocobalamin (Gnp Vitamin B12) 500 Mcg Tab, 1000 MCG PO DAILY for 30 Days, #60 TAB Prov:KISHORE TRINH MD 07/17/19 Atorvastatin Calcium (ATORVASTATIN CALCIUM) 20 Mg Tab, 40 MG PO HS for 20 Days, #40 TAB Prov:BENNIE FLOWERS MD 06/06/19 Clopidogrel Bisulfate (Plavix) 75 Mg Tab, 75 MG PO DAILY for 20 Days, #20 TAB Prov:BENNIE FLOWERS MD 06/06/19 Reported Medications Apixaban Base (ELIQUIS) 5 Mg Tab, 5 MG PO BID, TAB 01/25/21 Loratadine (Claritin) 10 Mg Tab, 1 TAB PO DAILY, #30 TAB 5 Refills 03/21/20 Finasteride (Finasteride) 5 Mg Tab, 5 MG PO DAILY for 30 Days, MG 05/27/19 Folic Acid (Folic Acid) 1 Mg Tab, 1 MG PO DAILY for 30 Days, MG 05/27/19 Topiramate (Topiramate) 100 Mg Tab, 100 MG PO BID for 30 Days, MG 05/27/19 Gabapentin (Gabapentin) 300 Mg Cap, 300 MG PO TID for 30 Days, MG 05/27/19 Allopurinol (Allopurinol) 100 Mg Tab, 100 MG PO DAILY for 30 Days, MG 05/27/19 Levetiracetam (Keppra) 500 Mg Tab, 500 MG PO BID for 30 Days, MG 05/27/19 Current Medications Current Medications Medications (Trade) Dose Ordered Sig/Virginie Route PRN Reason Start Time Stop Time Status Last Admin Levetiracetam 100 ml @ 400 mls/hr BID IV 08/31/24 22:00 09/01/24 11:59 DC 09/01/24 09:54 Allopurinol (Zyloprim Tablet) 100 mg DAILY PO 09/01/24 10:00 09/01/24 09:55 Apixaban (Eliquis) 5 mg BID PO 08/31/24 22:00 Hold 09/01/24 09:55 Atorvastatin Calcium (Lipitor) 40 mg HS PO 08/31/24 22:00 08/31/24 22:45 Clopidogrel Bisulfate (Plavix) 75 mg DAILY PO 09/01/24 10:00 09/01/24 09:54 Finasteride (Proscar Tablet) 5 mg DAILY PO 09/01/24 10:00 09/01/24 09:55 Gabapentin (Neurontin Capsule) 300 mg TID PO 08/31/24 22:00 09/01/24 14:56 Metoprolol Succinate (Toprol Xl) 25 mg DAILY PO 09/01/24 10:00 09/01/24 09:56 Topiramate (Topamax) 100 mg BID PO 08/31/24 22:00 09/01/24 09:55 Patient Own Medication 1 cap DAILY PO 09/01/24 10:00 Lorazepam (Ativan Inj) 1 mg Q5MINP PRN IV SEIZURES 08/31/24 23:45 Ergocalciferol (Vitamin D 50,000 Unit) 50,000 unit Q7D PO 09/01/24 03:15 09/01/24 04:56 Levetiracetam (Keppra Tablet) 500 mg BID PO 09/01/24 22:00 09/01/24 15:57 DC Pantoprazole Sodium (Protonix Tablet) 40 mg BID PO 09/01/24 22:00 09/01/24 15:40 DC Pantoprazole Sodium (Protonix Tablet) 20 mg BID PO 09/01/24 22:00 UNV Pantoprazole Sodium (Protonix Tablet) 40 mg DAILY PO 09/02/24 10:00 Levetiracetam 100 ml @ 400 mls/hr BID IV 09/01/24 22:00 Review of Systems As above, the other systems are negative Vital Signs Vital Signs Date Time Temp Pulse Resp B/P (MAP) Pulse Ox O2 Delivery O2 Flow Rate FiO2 09/01/24 21:00 97.4 78 20 119/53 (75) 91 97.4 09/01/24 08:00 Nasal Cannula* 2 28 Physical Exam GENERAL EXAM: General: the patient is well developed and nourished. No acute distress. HEENT: Normocephalic, neck is supple, no carotid bruits. No mass. RESPIRATORY: Normal respiratory effort with symmetrical lung expansion. Lungs clear to auscultation. CARDIOVASCULAR: Regular rate and rhythm with no murmurs. S1, S2. ABDOMEN: Soft, nontender, normal bowel sound NEUROLOGICAL: MENTAL STATUS: Awake and alert. Oriented to person, place, time and general cir cumstances. Able to give personal history SPEECH, LANGUAGE, HIGHER CORTICAL FUNCTION: no aphasia or dysathria. CRANIAL NERVES: #2: Intact visual maradiaga to confrontation. The optic discs were sharp #3,4,6: Pupils are equal, round and reactive. EOMs full and conjugate. No nystagmus. #5: Facial sensation intact in all three divisions bilaterally. Mandibular strength intact. #7: Facial muscles symmetrical and strength intact. #8: Hearing grossly normal to voice. #9,10: Uvula and soft palate rise in the midline. Swallow and voice are normal. #11: Trapezius and sternomastoid strength intact bilaterally. #12: Tongue midline. No fasciculations or atrophy. SENSATION: Sensation to touch and pinprick is diminished distally in the lower extremities MOTOR: Normal tone in the upper and lower extremity. Normal muscle bulk. No fasciculations. No abnormal movements or posturing. Muscle strength of the major groups in the upper extremities is 5/5. Muscle strength of the major groups in the lower extremities is 5/5. REFLEXES: Deep tendon reflexes are symmetrically diminished. No pathological reflexes. CEREBELLAR/COORDINATION: Finger to nose is normal bilaterally. GAIT/STATION: deferred. Labs/Diagnostic Data Labs Test 09/01/24 06:06 08/31/24 21:15 08/31/24 18:35 Range/Units White Blood Count 9.4 4.4-10.8 10^3/uL Red Blood Count 3.99 L 4.5-5.90 10^6/uL Hemoglobin 12.8 L 13.5-17.5 g/dL Hematocrit 38.6 L 41.0-53.0 % Mean Corpuscular Volume 96.8 80.0-100.0 fL Mean Corpuscular Hemoglobin 32.1 H 28.0-32.0 pg Mean Corpuscular Hemoglobin Concent 33.2 32.0-36.0 g/dL Red Cell Distribution Width 14.5 H 11.8-14.3 % Platelet Count 201 140-450 10^3/uL Mean Platelet Volume 8.0 6.9-10.8 fL Neutrophils (%) (Auto) 65.8 37.0-80.0 % Lymphocytes (%) (Auto) 24.7 10.0-50.0 % Monocytes (%) (Auto) 7.4 0.0-12.0 % Eosinophils (%) (Auto) 1.9 0.0-7.0 % Basophils (%) (Auto) 0.2 0.0-2.0 % Neutrophils # (Auto) 6.2 1.6-8.6 10 ^3/uL Lymphocytes # (Auto) 2.3 0.4-5.4 10 ^3/uL Monocytes # (Auto) 0.7 0-1.3 10 ^3/uL Eosinophils # (Auto) 0.2 0-0.8 10 ^3/uL Basophils # (Auto) 0 0-0.2 10 ^3/uL Nucleated Red Blood Cells 0.0 % Sodium Level 140 136-145 mmol/L Potassium Level 4.4 3.5-5.1 mmol/L Chloride Level 111 H 98-107 mmol/L Carbon Dioxide Level 23 20-31 mmol/L Anion Gap 6 5-15 Blood Urea Nitrogen 12 9-23 mg/dL Creatinine 0.96 0.700-1.30 mg/dL Glomerular Filtration Rate Calc 86 >90 mL/min BUN/Creatinine Ratio 12.5 10.0-20.0 Serum Glucose 102 74-106 mg/dL Calcium Level 8.9 8.7-10.4 mg/dL Total Bilirubin 0.4 0.2-1.0 mg/dL Aspartate Amino Transferase (AST) 34 13-40 U/L Alanine Aminotransferase (ALT) 40 7-40 U/L Alkaline Phosphatase 83 46-116 U/L Total Protein 6.3 5.7-8.2 g/dL Albumin 3.6 3.2-4.8 g/dL Urine Color Light-yellow Yellow Urine Clarity Clear Clear Urine pH 7.0 5.0-9.0 Urine Specific [place] 1.021 1.001-1.035 Urine Protein Trace H Negative Urine Ketones Negative Negative Urine Blood Negative Negative /uL Urine Nitrite Negative Negative Urine Bilirubin Negative Negative Urine Urobilinogen Normal Negative mg/dL Urine Leukocyte Esterase Negative Negative /uL Urine RBC 2 0 - 3 /hpf Urine WBC 1 0 - 3 /hpf Urine Squamous Epithelial Cells Few <5 /hpf Urine Bacteria None seen None Seen /hpf Urine Glucose Normal Normal mg/dL Hemoglobin A1c 6.1 H <5.7 % A1C Vitamin B12 Level 1663 H 211-911 pg/mL Vitamin D 25-Hydroxy 35.2 30.0-100 ng/mL Thyroid Stimulating Hormone (TSH) 1.22 0.55-4.78 uIU/mL Assessment Status epileptics Grand mal seizure Obesity Painful diabetic polyneuropathy He does not drive Plan/Recommendation Monitoring Supportive treatment Telemetry Keppra 500 mg b.i.d. Topamax 100 mg b.i.d. Ativan for seizure breakthrough A trial of Lyrica 50 mg b.i.d. Discontinue gabapentin (obesity) Follow up with his doctors on discharge More recommendation per clinical course Prognosis: Poor This medical document was created using an electronic medical record system with [email or web address] dictation system. Although this document has been carefully reviewed, there may still be some phonetic and typographical errors. These areas are purely typographical due to imperfections of the software programs, and do not reflect any compromise in the patient's medical care. Plan discussed with: Patient, Other TAMIKO HERNÁNDEZ MD Sep 01, 2024 21:40
[2024-09-01] MEDS ORDERED: levETIRAcetam 500 MG TAB PO SCH (22:00)
[2024-09-01] MEDS ORDERED: PANTOPRAZOLE 40 MG TAB PO SCH ×2 (22:00)
[2024-09-01] MEDS ORDERED: levETIRAcetam 500 mg/100ml 100 ML IV SCH (22:00)
[2024-09-02] VITALS (7 sets, daily range): BP systolic 101–122; BP diastolic 53–90; PULSE 66–86; RESP 17–20; TEMP 97.3–99.1; O2SAT 92–99
[2024-09-02 06:21] LABS: Basophils # (auto) 0 10 ^3/uL (0-0.2); Basophils % (auto) 0.2 % (0.0-2.0); Eosinophils # (auto) 0.3 10 ^3/uL (0-0.8); Eosinophils % (auto) 2.7 % (0.0-7.0); Hematocrit 37.7 % (41.0-53.0); Hemoglobin 12.7 g/dL (13.5-17.5); Lymphocytes # (auto) 2.5 10 ^3/uL (0.4-5.4); Lymphocytes % (auto) 25.7 % (10.0-50.0); Mean Corpuscular Hemoglobin 32.5 pg (28.0-32.0); Mean Corpuscular Hgb Conc. 33.7 g/dL (32.0-36.0); Mean Corpuscular Volume 96.5 fL (80.0-100.0); Monocytes # (auto) 0.8 10 ^3/uL (0-1.3); Monocytes % (auto) 7.8 % (0.0-12.0); Neutrophils # (auto) 6.2 10 ^3/uL (1.6-8.6); Neutrophils % (auto) 63.6 % (37.0-80.0); Platelet Count (auto) 189 10^3/uL (140-450); Red Blood Cells 3.91 10^6/uL (4.5-5.90); Red Cell Distribution Width 14.2 % (11.8-14.3); White Blood Cell 9.8 10^3/uL (4.4-10.8)
[2024-09-02 06:25] LABS: Chloride 110 mmol/L (98-107); Potassium 4.3 mmol/L (3.5-5.1); Sodium 139 mmol/L (136-145)
[2024-09-02 06:26] LABS: Anion Gap 4 (5-15); Carbon Dioxide 25 mmol/L (20-31)
[2024-09-02 06:27] LABS: Calcium 9.1 mg/dL (8.7-10.4)
[2024-09-02 06:31] LABS: BUN/Creatinine Ratio 15.4 (10.0-20.0); Blood Urea Nitrogen 19 mg/dL (9-23); Glucose 98 mg/dL (74-106)
--- NOTE | 2024-09-02 09:03 | DVHPN2 ---
Progress Note - Dictate Date Seen: Sep 02, 2024 Medical Necessity Reason Pt with a Central, PICC or Fol: No Subjective Mr. Krishna is a 69 years old right-handed gentleman with a history of hypertension, dyslipidemia, coronary artery disease, heart attack, congestive heart failure, GERD, gout, obesity, seizure, he was [facility] on 08/31/2024 with a chief company of seizure activity, I have seen and examined the patient, I have talked to her nurse, the patient was fine, alert and oriented x3 He reports taking during the at home, but has run out I have advised him to discuss with [facility] Re: Replace the gabapentin with Lyrica for pain control Urinalysis, 08/31/2024: No UTI CBC, 08/31/2024: Unremarkable CMP, 09/01/2024: Unremarkable HGB A1c, 08/31/2024: 6.1 TG/HDL/LDL/HDL, 10/2023: 56/95/36/43 Vitamin B12, 08/31/2024: 1663 TSH, 08/31/2024: 1.22 CT head, 09/01/2024: No acute intracranial abnormality. vital signs Vital Sign Date Time Temp Pulse Resp B/P (MAP) Pulse Ox O2 Delivery O2 Flow Rate FiO2 09/02/24 05:00 98.3 73 20 101/53 (69) 96 98.3 09/01/24 20:00 Room Air* 0 21 Total Intake and Output 09/01/24 09/01/24 09/02/24 15:00 23:00 07:00 Intake Total 75 ml 540 ml 1800 ml Output Total 780 ml Balance 75 ml -240 ml 1800 ml medications Current Medications Medications Dose Ordered Sig/Virginie Route Start Time Stop Time Status Last Admin Dose Admin Sodium Chloride 1,000 ml @ 75 mls/hr [id number] IV 08/31/24 21:30 09/02/24 00:50 75 MLS/HR Acetaminophen 325 mg Q4HP PRN PO 08/31/24 21:30 Acetaminophen/ Hydrocodone Bitart 1 tab Q4HP PRN PO 08/31/24 21:30 09/01/24 06:30 1 TAB Ondansetron HCl 4 mg Q4HP PRN IV 08/31/24 21:30 Nitroglycerin 0.4 mg Q5MINP PRN SL 08/31/24 21:30 Morphine Sulfate 2 mg Q30M PRN IV 08/31/24 21:30 Allopurinol 100 mg DAILY PO 09/01/24 10:00 09/01/24 09:55 100 MG Apixaban 5 mg BID PO 08/31/24 22:00 09/01/24 09:55 5 MG Atorvastatin Calcium 40 mg HS PO 08/31/24 22:00 09/01/24 21:50 40 MG Clopidogrel Bisulfate 75 mg DAILY PO 09/01/24 10:00 09/01/24 09:54 75 MG Finasteride 5 mg DAILY PO 09/01/24 10:00 09/01/24 09:55 5 MG Metoprolol Succinate 25 mg DAILY PO 09/01/24 10:00 09/01/24 09:56 25 MG Topiramate 100 mg BID PO 08/31/24 22:00 09/01/24 21:50 100 MG Patient Own Medication 1 cap DAILY PO 09/01/24 10:00 Lorazepam 1 mg Q5MINP PRN IV 08/31/24 23:45 Ergocalciferol 50,000 unit Q7D PO 09/01/24 03:15 09/01/24 04:56 50,000 UNIT Pantoprazole Sodium 20 mg BID PO 09/01/24 22:00 UNV Pantoprazole Sodium 40 mg DAILY PO 09/02/24 10:00 Levetiracetam 500 mg BID PO 09/02/24 10:00 Pregabalin 50 mg BID PO 09/02/24 10:00 objective General: the patient is well developed and nourished. No acute distress. MENTAL STATUS: Subjective SPEECH, LANGUAGE, HIGHER CORTICAL FUNCTION: no aphasia or dysathria. CRANIAL NERVES: Pupils are equal, round and reactive. EOMs full and conjugate. No nystagmus. Facial sensation intact in all three divisions bilaterally. Mandibular strength intact. Facial muscles symmetrical and strength intact. SENSATION: Sensation to touch and pinprick is diminished distally in the lower extremities MOTOR: Normal tone in the upper and lower extremity. Normal muscle bulk. No fasciculations. No abnormal movements or posturing. Muscle strength of the major groups in the extremities is 5/5. REFLEXES: Deep tendon reflexes are symmetrically diminished. No pathological reflexes. CEREBELLAR/COORDINATION: Finger to nose is normal bilaterally. GAIT/STATION: deferred. laboratory and microbiology Laboratory Tests 09/02/24 05:26 Test 09/02/24 05:26 Range/Units Serum Glucose 98 74-106 mg/dL Problem List Status epileptics Grand mal seizure Obesity Painful diabetic polyneuropathy He does not drive Assessment/Plan Monitoring Supportive treatment Telemetry Keppra 500 mg b.i.d. Topamax 100 mg b.i.d. Ativan for seizure breakthrough A trial of Lyrica 50 mg b.i.d. Discontinue gabapentin (obesity) Follow up with his doctors on discharge More recommendation per clinical course This medical document was created using an electronic medical record system with [employer] dictation system. Although this document has been carefully reviewed, there may still be some phonetic and typographical errors. These areas are purely typographical due to imperfections of the software programs, and do not reflect any compromise in the patient's medical care. Prognosis poor Plan discussed with: Patient, Other TAMIKO HERNÁNDEZ MD Sep 02, 2024 09:03
[2024-09-02] MEDS: levETIRAcetam 500 MG TAB PO SCH (10:44)
[2024-09-02] MEDS: PANTOPRAZOLE 40 MG TAB PO SCH (10:45)
[2024-09-02] MEDS: PREGABALIN 25 MG CAP PO SCH (10:57)
[2024-09-02] MEDS ORDERED: PREG50CA PO ×2 (13:17→14:15)
[2024-09-02] MEDS ORDERED: PREG50CA80 PO (13:18)
[2024-09-02] MEDS ORDERED: TOPI100T68 PO (13:18)
[2024-09-02] MEDS ORDERED: KEP500T PO (13:18)
--- NOTE | 2024-09-02 14:56 | DVHDSRES ---
Discharge Summary Date of Admission Resident Creating Document: YOLY LOPEZ Aug 31, 2024 at 21:23 Date of Discharge: Sep 02, 2024 Admitting Diagnosis Seizure episode Labs/Diagnostic Data: Laboratory Results Test 09/02/24 05:26 09/01/24 06:06 08/31/24 21:15 08/31/24 18:35 White Blood Count 9.8 10^3/uL (4.4-10.8) Red Blood Count 3.91 10^6/uL (4.5-5.90) Hemoglobin 12.7 g/dL (13.5-17.5) Hematocrit 37.7 % (41.0-53.0) Mean Corpuscular Volume 96.5 fL (80.0-100.0) Mean Corpuscular Hemoglobin 32.5 pg (28.0-32.0) Mean Corpuscular Hemoglobin Concent 33.7 g/dL (32.0-36.0) Red Cell Distribution Width 14.2 % (11.8-14.3) Platelet Count 189 10^3/uL (140-450) Mean Platelet Volume 8.0 fL (6.9-10.8) Neutrophils (%) (Auto) 63.6 % (37.0-80.0) Lymphocytes (%) (Auto) 25.7 % (10.0-50.0) Monocytes (%) (Auto) 7.8 % (0.0-12.0) Eosinophils (%) (Auto) 2.7 % (0.0-7.0) Basophils (%) (Auto) 0.2 % (0.0-2.0) Neutrophils # (Auto) 6.2 10 ^3/uL (1.6-8.6) Lymphocytes # (Auto) 2.5 10 ^3/uL (0.4-5.4) Monocytes # (Auto) 0.8 10 ^3/uL (0-1.3) Eosinophils # (Auto) 0.3 10 ^3/uL (0-0.8) Basophils # (Auto) 0 10 ^3/uL (0-0.2) Nucleated Red Blood Cells 0.0 % Sodium Level 139 mmol/L (136-145) Potassium Level 4.3 mmol/L (3.5-5.1) Chloride Level 110 mmol/L (98-107) Carbon Dioxide Level 25 mmol/L (20-31) Anion Gap 4 (5-15) Blood Urea Nitrogen 19 mg/dL (9-23) Creatinine 1.23 mg/dL (0.700-1.30) Glomerular Filtration Rate Calc 64 mL/min (>90) BUN/Creatinine Ratio 15.4 (10.0-20.0) Serum Glucose 98 mg/dL (74-106) Calcium Level 9.1 mg/dL (8.7-10.4) Total Bilirubin 0.4 mg/dL (0.2-1.0) Aspartate Amino Transferase (AST) 34 U/L (13-40) Alanine Aminotransferase (ALT) 40 U/L (7-40) Alkaline Phosphatase 83 U/L (46-116) Total Protein 6.3 g/dL (5.7-8.2) Albumin 3.6 g/dL (3.2-4.8) Urine Color Light-yellow (Yellow) Urine Clarity Clear (Clear) Urine pH 7.0 (5.0-9.0) Urine Specific [place] 1.021 (1.001-1.035) Urine Protein Trace (Negative) Urine Ketones Negative (Negative) Urine Blood Negative /uL (Negative) Urine Nitrite Negative (Negative) Urine Bilirubin Negative (Negative) Urine Urobilinogen Normal mg/dL (Negative) Urine Leukocyte Esterase Negative /uL (Negative) Urine RBC 2 /hpf (0 - 3) Urine WBC 1 /hpf (0 - 3) Urine Squamous Epithelial Cells Few /hpf (<5) Urine Bacteria None seen /hpf (None Seen) Urine Glucose Normal mg/dL (Normal) Hemoglobin A1c 6.1 % A1C (<5.7) Vitamin B12 Level 1663 pg/mL (211-911) Vitamin D 25-Hydroxy 35.2 ng/mL (30.0-100) Thyroid Stimulating Hormone (TSH) 1.22 uIU/mL (0.55-4.78) Other Laboratory Tests 09/02/24 05:26 Brief Hx & Hospital Course: Patient is 69 years old male with past medical history of seizure disorder, DVT, atrial fibrillation on Eliquis, coronary artery disease, status post PTCA x2 6, CVA, HFpEF,, hypertension, hypothyroidism, chronic back pain, GERD came with a complaint of having seizure 2 times in the afternoon 1 day ago. As per patient and her patient had seizure 2 times lasted for 1-2 minutes, with post seizure confusion. As per patient and his swelling his last seizure was 3 years before. Patient denied any procedure nausea, vomiting, aura, dizziness. Patient also reported having to seizure last night at the ER which lasted for 45 seconds as per patient's . Patient denied any chest pain, shortness of breath, acute joint pain or swelling, dysuria, acute dysarthria or change in vision. Initial lab workup ruled out leukocytosis or UTI. HGB A1c 6.1. CT head negative for acute intracranial hemorrhage or infarction. The abdomen and pelvis- No acute abdominal or pelvic findings. Angela mesentery which is a nonspecific finding with a broad differential which includes mesenteric panniculitis, idiopathic, or inflammatory bowel disease. Other etiologies not excluded. Patient was treated with IV Keppra, later on home medication topiramate also started. Patient was seen by Neurology and recommended for Lyrica 50 mg p.o. b.i.d. neurologist discontinued gabapentin due to obesity. Patient's seizure was well controlled, no seizure BC noted in the last 24 hours. Patient is being discharged home with Keppra 500 mg p.o. b.i.d., Topamax 100 mg p.o. b.i.d., Lyrica mg p.o. b.i.d.. Patient was advised to follow up with the PCP in 1 week and also to follow up with the neurologist in 1-2 weeks. Patient's meds were sent to the pharmacy electronically. Patient was hemodynamically stable on discharge. PMH-seizure disorder, DVT, atrial fibrillation on Eliquis, coronary artery disease, status post PTCA x2 6, CVA, HFpEF,, hypertension, hypothyroidism, chronic back pain, GERD PSH- cholecystectomy, Allergy- penicillin, codeine Personal History/ Social History- denies smoking, alcoholism, drug abuse Patient was seen today at the bedside. Patient reports doing well Cardiovascular- deny acute chest pain or shortness of breath or cough or palpitation Respiratory- denies cough or short of breath or wheezing Gastrointestinal- denies any rectal bleeding, nausea or vomiting Musculoskeletal-denies acute joint swelling or tenderness or redness Neurological- denies acute dysarthria, dysphagia, change in vision Psychiatry- denies depression or SI or HI Skin- denies acute rash or purpura General examination- HEENT- PEERLA, no acute nasal discharge Cardiovascular- S1-S2 audible, rate and rhythm regular, no murmur Respiratory- CTAB, no wheeze or rhonchi Gastrointestinal-nontender, bowel sound+. Nondistended Musculoskeletal-no acute joint swelling or tenderness or redness# Lower extremity- Neurological- cranial nerves intact, no acute dysarthria or dysphagia Psychiatry- denies depression or SI or HI Skin- no acute rash or purpura Operations or Procedures Signed PATIENT: ELENA VASQUEZ ACCT: [id number] UNIT: [id number] : 1955 LOC: ER ROOM / BED: / AGE / SEX: 69 / M ADM STATUS: REG ER SERVICE 37 ORDERING PHYSICIAN: DONTRELL CHACON MD PROCEDURE(s): ABPL - CT AB PEL WO CON-NO ORAL OR IV REASON: pain ORDER NUMBER(s): [id number], ACCESSION NUMBER(s): [id number] Exam: CT CT AB PEL WO CON-NO ORAL OR IV History: pain Comparison Study: None available at time of dictation. Technique: Multidetector spiral CT of the abdomen was performed from lung bases to pubic symphysis. Imaging was performed without IV contrast. Axial, coronal and sagittal multiplanar reformats were obtained from the axial data set by the technologist. Radiation Dose : 1. Abdomen/Pelvis: CTDIvol 27 mGy, DLP 1500 mGy*cm. Findings: Evaluation of solid organs is limited due to lack of intravenous contrast use. Lung Bases: No acute or significant lung base finding. Normal heart size. No pleural or pericardial effusion. Liver: The liver is normal in size. No focal lesions. Gallbladder and Biliary Tree: Gallbladder is surgically absent. Spleen: Unremarkable Pancreas: The pancreas is grossly normal in appearance. Adrenal Glands: Unremarkable Kidneys: Severely atrophic and lobulated left kidney Bladder: Grossly unremarkable for degree of distention. Bowel: The stomach is grossly normal in appearance. Small bowel and colon are normal in caliber and distribution. The appendix is not visualized; however, no secondary findings of acute appendicitis identified. Diverticulosis. Ascites: Absent Lymphadenopathy: No mesenteric, retroperitoneal or periportal lymphadenopathy. Abdominal Wall and Mesentery: .Subtle ground-glass opacification involving the mid mesentery. Vasculature: The visualized abdominal aorta is normal in size and caliber. Evaluation of abdominal and pelvic vessels is limited due to lack of intravenous contrast. Pelvic Organs: Unremarkable Musculoskeletal: No aggressive focal bony lesions, acute fractures or dislocation. IMPRESSION: No acute abdominal or pelvic findings. Angela mesentery which is a nonspecific finding with a broad differential which includes mesenteric panniculitis, idiopathic, or inflammatory bowel disease. Other etiologies not excluded. END IMPRESSION: ATED BY: KHADIJAH RODRIGUEZ DO DICTATED DATE/TIME: 08/31/242001 SIGNED BY: KHADIJAH RODRIGUEZ DO SIGNED DATE/TIME: 08/31/242001 CC: PATIENT: ELENA VASQUEZ ACCT: [id number] UNIT: [id number] : 1955 LOC: [facility] ROOM / BED: 0248T / A AGE / SEX: 69 / M ADM STATUS: ADM IN SERVICE 1028 ORDERING PHYSICIAN: YOLY LOPEZ RESIDENT PROCEDURE(s): HWOCT - HEAD WITHOUT CONTRAST REASON: History of seizure, breakthrough seizure ORDER NUMBER(s): [id number], ACCESSION NUMBER(s): [id number] Exam: CT HEAD WITHOUT CONTRAST History: History of seizure, breakthrough seizure Technique: [address] images through the posterior fossa and the supratentorial compartment were acquired without contrast and imaged using soft tissue and bone algorithms. RADIATION DOSE: DLP 1717.53 mGy.cm; CTDI vol 66.82 mGy. Comparison: None Findings: There is no evidence of an intracranial hemorrhage, acute large vessel infarct, mass effect, or midline shift. The calvarium, orbits, paranasal sinuses, sella, middle ears, and mastoids are unremarkable. The superficial soft tissues are within normal limits. Impression: 1. No acute intracranial abnormality. ATED BY: JESSICA PRATT DO DICTATED DATE/TIME: 09/01/241905 SIGNED BY: JESSICA PRATT DO SIGNED DATE/TIME: 09/01/241905 CC: Condition at Discharge: Stable Final Diagnosis/Problems List Acute breakthrough seizure, history of seizure Grand mal seizure Morbid Obesity Painful diabetic polyneuropathy History of atrial fibrillation CAD, status post PTCA x6 Hypertension HFpEF Hyperlipidemia GERD History of DVT History of hypothyroidism Discharge Disposition: Home Discharge Instruct/Medications Diet: Cardiac 2g Na,low cholest Activity: No Restrictions, As Tolerated Activity comment: No driving Follow Up/Referral: Follow up with the PCP in 1 week and also follow up with the neurologist in 1-2 weeks Medications: Keppra 500 mg p.o. b.i.d. Topiramate 100 mg p.o. b.i.d. Lyrica 50 mg p.o. b.i.d. Please resume other home medications Discharge Statement: "Patient was advised to return to the ER or call 911 if any headaches, dizziness, shortness of breath, chest pain, abdominal pain, bleeding, fevers, or worsening of medical condition. Patient was counseled about treatment plan, medications, possible side effects, patientverbalized understanding. All questions were answered to the best of my ability. This discharge took greater then 30 minutes in planning, reviewing documentation, counseling the patient, and discussing with other team members." ASSESSMENT ASSESSMENT Assessment Breakthrough seizure Date of Service: Sep 02, 2024 Billing Provider: CASSIE CATES MD Common Visit Codes: 83650-HDT/OBS DISCH DAY >30min YOLY LOPEZ RESIDENT Sep 02, 2024 14:56 CASSIE CATES MD Sep 02, 2024 22:11
== END 2024-09-02 17:30 | disposition home or self-care (01) | DRG 53 ==
LOC: EDBD 17:07 → ER 17:10 → OVERFLOW 21:23 → TELE-EAST 21:25 → EAST 23:30 → TELE-EAST 09-01 01:32
PROVIDERS: ADMIT Internal Medicine Geriatric Medicine; ATTEND Emergency Medicine
DX: G40.401 Other generalized epilepsy and epileptic syndromes, not intractable, with status epilepticus (principal); E11.42 Type 2 diabetes mellitus with diabetic polyneuropathy; I50.32 Chronic diastolic (congestive) heart failure; E03.9 Hypothyroidism, unspecified; I11.0 Hypertensive heart disease with heart failure; Z79.01 Long term (current) use of anticoagulants; E66.01 Morbid (severe) obesity due to excess calories; Z68.41 Body mass index [BMI] 40.0-44.9, adult; I25.10 Atherosclerotic heart disease of native coronary artery without angina pectoris; K21.9 Gastro-esophageal reflux disease without esophagitis; M10.9 Gout, unspecified; E78.5 Hyperlipidemia, unspecified; G89.29 Other chronic pain; M54.9 Dorsalgia, unspecified; Z88.5 Allergy status to narcotic agent; Z88.0 Allergy status to penicillin; Z79.1 Long term (current) use of non-steroidal anti-inflammatories (NSAID); Z79.2 Long term (current) use of antibiotics; Z79.899 Other long term (current) drug therapy; Z95.1 Presence of aortocoronary bypass graft; Z81.8 Family history of other mental and behavioral disorders; Z83.3 Family history of diabetes mellitus; Z82.49 Family history of ischemic heart disease and other diseases of the circulatory system; I25.2 Old myocardial infarction
CPT/HCPCS: 36415; 70450; 74176; 80048; 80053; 81001; 82306; 82607; 83036; 84443; 85025; 93005; 99291; G0378

== ENCOUNTER 2024-12-10 17:01 | Emergency (ER) | payer MEDICARE, MEDICAID ==
[~2024-12-10] VITALS: Ht 170.2 cm; Wt 137.0 kg
[~2024-12-10 17:01] MED LIST changes: +KEP500T PO; +PREG50CA PO
[2024-12-10] MEDS: KETOROLAC TROMETH 60MG/2ML VIAL IM ONE (17:15)
--- NOTE | 2024-12-10 17:47 | ED.PDOC ---
History of Present Illness HPI Comments This patient is a morbidly obese 69 y/o M, with a history of anemia, CAD, CABG, CHF, GERD, gout, HLD, HTN, NV, PTCA, seizures, morbid obesity, and thyroid disease, is BIBA for c/o non-radiating, lower back pain s/p mechanical fall and injury. Patient comments on developing pain after having an initial mechanical fall and being assisted, dropped, and landed ontop of by a bystander nearby. He denies having any additional injuries, weakness, numbness, or other associated symptoms or modifiers at this time. Patient denies any blood loss. Vital signs were stable on arrival. Chief Complaint: Fall Injury Time Seen by MD: 17:15 Primary Care Provider: PA Reviewed Notes: Nurses Notes, Preparation Operator Notes, Medications, Allergies Allergies: Coded Allergies: Codeine (Verified Allergy, Unknown, 05/26/19) Penicillins (Verified Allergy, Unknown, 05/26/19) Home Meds Active Scripts Topiramate (Topiramate) 100 Mg Tab, 1 TAB PO BID for 30 Days, #60 TAB 1 Refill Prov:QIAN JOHNSON 09/02/24 Levetiracetam (KEPPRA TABLET) 500 Mg Tb, 500 MG PO BID for 30 Days, #60 TAB Prov:QIAN JOHNSON RESIDENT 09/02/24 Duloxetine Hcl (Cymbalta) 20 Mg Cap, 1 CAP PO DAILY for 30 Days, #30 CAP 2 Refills Prov:QIAN JOHNSON 06/05/24 Acetaminophen (Acetaminophen Er) 650 Mg Tab, 650 MG PO Q8HP PRN for 30 Days, #90 TAB Prov:QIAN JOHNSON 06/05/24 Ibuprofen Micronized (Ibuprofen) 600 Mg Tab, 600 MG PO Q8HP PRN for 14 Days, #42 TAB Prov:QIAN JOHNSON 06/05/24 Ondansetron Odt 4MG Tab (ZOFRAN PO) 4 Mg Tb, 4 MG PO Q6HP PRN, #30 TAB ODT TAB-DISSOLVE IN MOUTH, THEN SWALLOW Prov:CHARLIE ALTAMIRANO MD 11/25/23 Pantoprazole Sodium Sesquihydr (Pantoprazole Sodium) 40 Mg Tab, 40 MG PO BID, #60 TAB Prov:CHARLIE ALTAMIRANO MD 11/25/23 Metoprolol Succinate (Toprol Xl) 50 Mg Tab, 25 MG PO DAILY, #30 TAB Prov:JEN ELIZABETH MD 06/16/20 Cyanocobalamin (Gnp Vitamin B12) 500 Mcg Tab, 1000 MCG PO DAILY for 30 Days, #60 TAB Prov:KISHORE TRINH MD 07/17/19 Atorvastatin Calcium (ATORVASTATIN CALCIUM) 20 Mg Tab, 40 MG PO HS for 20 Days, #40 TAB Prov:BENNIE FLOWERS MD 06/06/19 Clopidogrel Bisulfate (Plavix) 75 Mg Tab, 75 MG PO DAILY for 20 Days, #20 TAB Prov:BENNIE FLOWERS MD 06/06/19 Reported Medications Pregabalin (Lyrica) 50 Mg Cap, 1 CAP PO BID, #60 CAP 5 Refills 09/02/24 Apixaban Base (ELIQUIS) 5 Mg Tab, 5 MG PO BID, TAB 01/25/21 Loratadine (Claritin) 10 Mg Tab, 1 TAB PO DAILY, #30 TAB 5 Refills 03/21/20 Finasteride (Finasteride) 5 Mg Tab, 5 MG PO DAILY for 30 Days, MG 05/27/19 Folic Acid (Folic Acid) 1 Mg Tab, 1 MG PO DAILY for 30 Days, MG 05/27/19 Topiramate (Topiramate) 100 Mg Tab, 100 MG PO BID for 30 Days, MG 05/27/19 Gabapentin (Gabapentin) 300 Mg Cap, 300 MG PO TID for 30 Days, MG 05/27/19 Allopurinol (Allopurinol) 100 Mg Tab, 100 MG PO DAILY for 30 Days, MG 05/27/19 Levetiracetam (Keppra) 500 Mg Tab, 500 MG PO BID for 30 Days, MG 05/27/19 Information Source: Patient, Emergency Med Personnel Mode of Arrival: EMS Severity: Moderate Timing: Hours Duration: Since onset Prehospital treatment: 12 Lead EKG, Tractor Mechanic Past Medical History PAST MEDICAL HISTORY: Anemia, CAD, CHF, GERD, Gout, High Lipids, HTN, NV, Seizures, Thyroid Past Medical History (Other): morbid obesity Surgical History: CABG, PTCA Family History Family History: Reviewed,noncontributory to illness, Family hx of HTN Social History Smoker: Non-Smoker Alcohol: Rarely Drugs: Denies Drug Use Lives In: Home Constitutional: denies: chills, diaphoresis, fatigue, fever, malaise, sweats, weakness, others EENTM: denies: blurred vision, double vision, ear bleeding, ear discharge, ear drainage, ear pain, ear ringing, eye pain, eye redness, hearing loss, mouth pain, mouth swelling, nasal discharge, nose bleeding, nose congestion, nose pain, photophobia, tearing, throat pain, throat swelling, voice changes, others Respiratory: denies: cough, hemoptysis, orthopnea, SOB at rest, shortness of breath, SOB with excertion, stridor, wheezing, others Cardiovascular: denies: chest pain, dizzy spells, diaphoresis, Dyspnea on exe rtion, edema, irregular heart beat, left arm pain, lightheadedness, palpitations, PND, syncope, others Gastrointestinal: denies: abdomen distended, abdominal pain, blood streaked bowels, constipated, diarrhea, dysphagia, difficulty swallowing, hematemesis, melena, nausea, poor appetite, poor fluid intake, rectal bleeding, rectal pain, vomiting, others Genitourinary: denies: burning, dysuria, flank pain, frequency, hematuria, incontinence, penile discharge, penile sore, pain, testicle pain, testicle swelling, urgency, others Neurological: denies: dizziness, fainting, headache, left sided numbness, left sided weakness, numbness, paresthesia, pre-existing deficit, right sided numbness, right sided weakness, seizure, speech problems, tingling, tremors, weakness, others Musculoskeletal: reports: back pain; denies: gout, joint pain, joint swelling, muscle pain, muscle stiffness, neck pain, others Integumetry: denies: bruises, change in color, change in hair/nails, dryness, laceration, lesions, lumps, rash, wounds, others Allergic/Immunocompromised: denies: Difficulty Healing, Frequent Infections, Hives, Itching, others Hematologic/Lymphatic: denies: anemia, blood clots, easy bleeding, easy bruising, swollen glands, others Endocrine: denies: excessive hunger, excessive sweating, excessive thirst, excessive urination, flushing, intolerance to cold, intolerance to heat, unexplained weight gain, unexplained weight loss, others Psychiatric: denies: anxiety, bipolar disorder, depression, hopeless, panic disorder, schizophrenia, sleepless, suicidal, others All Other Systems: Reviewed and Negative (negative unless otherwise stated above or in HPI) Physical Exam General Appearance: Moderate Distress (Patient is a [id number] distress at time of evaluation.), Obese HEENT: Normal ENT Inspection, Pharynx Normal, TMs Normal Neck: Full Range of Motion, Non-Tender, Normal, Normal Inspection Respiratory: Chest Non-Tender, Lungs Clear, No Accessory Muscle Use, No Respiratory Distress, Normal Breath Sounds Cardiovascular: No Edema, No JVD, No Murmur, No Gallop, Normal Peripheral Pulses, Regular Rate/Rhythm Breast Exam: Deferred Gastrointestinal: No Organomegaly, Non Tender, No Pulsatile Mass, Normal Bowel Sounds, Soft Genitalia: Deferred Pelvic: Deferred Rectal: Deferred Extremities: No calf tenderness, Normal capillary refill, Normal inspection, Normal range of motion, Non-tender, No pedal edema Musculoskeletal : Location: Bilateral Extremity Location: Back (Diffuse bilateral coccygeal and lumbar tenderness to palpation throughout. No definitive signs of trauma. No edema or ecchymosis. No crepitus noted. Denies any saddle paresthesia. Bilateral distal neurovascularly intact.) Apperance: Normal Neurologic: Alert, cnc operator programmer II-XII nml as Tested, No Motor Deficits, Normal Affect, Normal Mood, No Sensory Deficits Cerebellar Function: Normal Reflexes: Normal Skin: Dry, Normal Color, Warm Lymphatic: No Adenopathy Was a procedure done? Was a procedure done?: No Differential Dx Considerations may include: fractures, dislocation, musculoskeletal pain, contusions, bruising X-Ray, Labs, Meds, VS Vital Signs Date Time Temp Pulse Resp B/P (MAP) Pulse Ox O2 Delivery O2 Flow Rate FiO2 12/10/24 17:07 97.8 74 18 126/75 (92) 98 X-Ray, Labs, Meds, VS Comment All studies performed the ED were evaluated by me personally. Imaging studies were unremarkable for any acute fractures of the lumbar coccygeal region. Patient sustained a low back contusion. Advised pain medication as needed as well as ice therapy. Time of 1ST Reevaluation: 18:02 Reevaluation 1ST: Improved Consultation: PCP Patient Education/Counseling: Diagnosis, Treatment Family Education/Counseling: Diagnosis, Treatment, No Family Present Departure 1 Departure Time of Disposition: 18:02 Impression: Primary Impression: Contusion of lower back Disposition: HOME / SELF CARE / HOMELESS Condition: Stable Additional Instructions: Advised pain medication as needed for symptomatic relief as well as ice therapy. e-Prescriptions Acetaminophen (Acetaminophen) 500 Mg Tab 500 MG PO Q4HP PRN, #30 TAB Prov: TABATHA OLMEDO PAC 12/10/24 Ibuprofen Micronized (Ibuprofen) 800 Mg Tab 800 MG PO Q8HP PRN, #20 TAB Prov: TABATHA OLMEDO PAC 12/10/24 Discharged With: Self, Friend Critical Care Note Critical Care Time?: No Stability Stability form required: No Heart Score Heart Score: Heart Score Response (Comments) Value History N/A 0 EKG N/A 0 Age N/A 0 Risk Factors N/A 0 Troponin N/A 0 Total 0 I personally scribed for TABATHA OLMEDO PAC ([email or web address]) on 12/10/24 at 17:47. Electronically submitted by Dayne Ibarra ([email or web address]). ATBATHA OLMEDO PAC Dec 10, 2024 17:47
--- NOTE | 2024-12-10 17:56 | DVH ---
INDICATION: Fall/back pain COMPARISON: None TECHNIQUE: 3 views of the lumbar spine were obtained. FINDINGS: The lumbar vertebral alignment is normal. The intervertebral disc spaces are well-maintained. No significant facet arthropathy is noted. No acute fracture, vertebral compression deformity or aggressive osseous lesions. The paravertebral soft tissues are grossly unremarkable. IMPRESSION: No acute fracture.
--- NOTE | 2024-12-10 17:56 | DVH ---
EXAM: XY SACRUM AND COCCYX CLINICAL INDICATION: Fall/back pain TECHNIQUE: XY SACRUM AND COCCYX, 2 views Comparison: None FINDINGS/IMPRESSION: There is no evidence of acute fracture or dislocation. The visualized joint space is well maintained. The alignment is anatomical. There is no radiopaque foreign body.
[2024-12-10] MEDS ORDERED: ACET500T58 PO (18:03)
[2024-12-10] MEDS ORDERED: IBUP-1455 PO (18:03)
[2024-12-10 18:14] VITALS: BP 120/80; TEMP 98.1
[2024-12-10 18:16] VITALS: PULSE 88; RESP 18; O2SAT 98
== END 2024-12-10 18:17 | disposition home or self-care (01) ==
LOC: EDBD 17:01 → ER 17:01
DX: S30.0XXA Contusion of lower back and pelvis, initial encounter (principal); I11.0 Hypertensive heart disease with heart failure; I50.9 Heart failure, unspecified; K21.9 Gastro-esophageal reflux disease without esophagitis; E78.5 Hyperlipidemia, unspecified; M10.9 Gout, unspecified; Z79.01 Long term (current) use of anticoagulants; Z79.02 Long term (current) use of antithrombotics/antiplatelets; Z79.899 Other long term (current) drug therapy; Z88.0 Allergy status to penicillin; Z88.5 Allergy status to narcotic agent; Z95.1 Presence of aortocoronary bypass graft; W18.09XA Striking against other object with subsequent fall, initial encounter; Y93.89 Activity, other specified; Y92.89 Other specified places as the place of occurrence of the external cause; Y99.8 Other external cause status
CPT/HCPCS: 72100; 72220; 96372; 99284; J1885